=== PATIENT | male | born 1950 | race Caucasian/White ===

== ENCOUNTER → 2016-08-27 | Outpatient (CLI) | payer OTHER ==
[~2016-08-27] MED LIST: AMLO-114 PO; ASPI-435 PO; CIPR-255 PO; CYAN10005 PO; DIPH-437 PO; FLAX12003 PO; HYDR-5688 PO; HYZ/10015 PO; LEVO100T7 PO; MULT-506 PO; PSYL0.524 PO; SILD50TA PO; TADA10TA PO; TAMS0.4C59 PO
--- NOTE | 2016-09-02 10:15 | CODING QUERY MEDICAL NECESSITY ---
SUPPORTING DIAGNOSIS NEEDED Dr. Vance, A supporting diagnosis is required for the test/procedure performed on this patient in order for us to be reimbursed by the patient's insurance. Please provide a supporting diagnosis for the following test/procedure listed below next to the test name along with your signature. *If there is no additional diagnosis for this patient that would support the following test/procedure please document that below next to the test/procedure. Test(s)/Procedure(s) that require a supporting diagnosis: * [id number] PSA DIAGNOSIS: DATE OF SERVICE: 08/27/16 Provider Signature: Date: Thank you [facility] Information Management Once completed, please kindly fax back to [phone] For questions please call [phone]
== END | disposition home or self-care (01) ==
LOC: C.LABPVFM 13:46
PROVIDERS: ATTEND Urology
DX: F52.8 Other sexual dysfunction not due to a substance or known physiological condition (principal); N40.1 Benign prostatic hyperplasia with lower urinary tract symptoms

== ENCOUNTER → 2016-11-21 | Outpatient (CLI) | payer OTHER ==
[~2016-11-21] MED LIST changes: -SILD50TA PO; -TAMS0.4C59 PO
== END | disposition home or self-care (01) ==
LOC: C.LAB1850 11:15
PROVIDERS: ATTEND Physician Assistant Medical
DX: E03.9 Hypothyroidism, unspecified (principal)

== ENCOUNTER 2016-12-02 09:25 | Observation (INO) | payer OTHER ==
[2016-11-19 08:11] VITALS: BMI 38.0
--- NOTE | 2016-11-19 08:39 | PAT Medication Instructions ---
Service Date Nov 19, 2016. Current Home Medication List Amlodipine (Norvasc), 10 MG PO QAM Aspirin (Aspirin 81), 81 MG PO QAM Cyanocobalamin (Vitamin B-12), 1,000 MCG PO QAM Flaxseed (Linseed) (Flaxseed Oil), 1 CAP PO QAM Hctz/Losartan (Hyzaar 25MG/100MG), 1 TAB PO QAM Levothyroxine Sodium (Levothyroxine Sodium), 1 TAB PO QAM Multivitamin (Multivitamin), 1 TAB PO QAM Psyllium (Metamucil), 1 CAP PO QAM Tadalafil (Cialis), 10 MG PO QAM Medication Instructions For Your Scheduled Surgery - Check with surgeon/Dr. Harmon for instructions: Aspirin (Aspirin 81), 81 MG PO QAM - Hold the following medications starting 11/20/16: Flaxseed (Linseed) (Flaxseed Oil), 1 CAP PO QAM - Hold the following medications the morning of surgery: Psyllium (Metamucil), 1 CAP PO QAM Multivitamin (Multivitamin), 1 TAB PO QAM Hctz/Losartan (Hyzaar 25MG/100MG), 1 TAB PO QAM Cyanocobalamin (Vitamin B-12), 1,000 MCG PO QAM - Take the following medications the morning of surgery with a sip of water: Amlodipine (Norvasc), 10 MG PO QAM Levothyroxine Sodium (Levothyroxine Sodium), 1 TAB PO QAM - Take the following medications the night prior to surgery: Tadalafil (Cialis), 10 MG PO QPM If you have any questions please call us at [phone] or [phone] or [phone]
--- NOTE | 2016-11-19 09:15 | DIAGNOSTIC IMAGING REPORT ---
CHEST 2 VIEWS ROUTINE HISTORY: 66 years-old Male preadmission exam. COMPARISON: Chest radiographs 02/18/2011 TECHNIQUE: PA and lateral views of the chest FINDINGS: Cardiac silhouette is again upper limits of normal. Mediastinal contours are within normal limits. There is atherosclerosis of the aorta. There is no pneumothorax. There is chronic blunting of left costophrenic angle with associated linear subsegmental opacities suggesting atelectasis and/or scarring. No lobar airspace consolidations are seen. No large pleural effusion. Multilevel endplate spurring is seen throughout the spine. IMPRESSION: 1. No acute cardiopulmonary process. 2. Linear subsegmental opacities of the left lung base suggest atelectasis or scarring with chronic blunting of the left costophrenic angle. The above report was generated using voice recognition software. It may contain grammatical, syntax or spelling errors. Electronically signed by: Jose Li M.D. 11/19/2016 9:13 AM Dictated Date/Time: 11/19/2016 9:12 AM
[2016-11-19 09:34] LABS: BASO % 0.5 %; BASO ABS # 0.03 K/uL (0-0.2); COMPLETE YES; EOS % 2.4 %; HEMATOCRIT 49.6 % (42-52); IG% 0.2 %; LYMPH % 30.1 %; LYMPH ABS # 1.75 K/uL (1.2-3.4); MEAN CELL VOLUME 90.7 fL (80-100); MEAN CORPUSCULAR HEMOGLOBIN 32.7 pg (25-34); MEAN CORPUSCULAR HGB CONC 36.1 g/dl (32-36); MEAN PLATELET VOLUME 10.3 fL (7.4-10.4); NEUT % 56.8 %; PLATELET COUNT 204 K/uL (130-400); RED BLOOD COUNT 5.47 M/uL (4.7-6.1); WHITE BLOOD COUNT 5.82 K/uL (4.8-10.8)
[2016-11-19 09:43] LABS: URINE APPEARANCE CLEAR (CLEAR); URINE BILIRUBIN NEG (NEG); URINE COLOR YELLOW; URINE EPITHELIAL CELL AUTO 0-5 /lpf (0-5); URINE NITRITE NEG (NEG); URINE SPECIFIC GRAVITY 1.017 (1.000-1.030); UROBILINOGEN NEG (NEG)
[2016-11-19 09:46] LABS: MANUAL MICROSCOPIC REQUIRED? NO; REVIEW REQ? NO
[2016-11-19 10:15] LABS: BUN/CREATININE RATIO 14.7 (10-20); CALCIUM 9.5 mg/dl (8.5-10.1); CREATININE 1.1 mg/dl (0.60-1.40); POTASSIUM 3.4 mmol/L (3.5-5.1)
[~2016-12-02] VITALS: Ht 180.3 cm; Wt 125.5 kg
[2016-12-02] VITALS (10 sets, daily range): BP systolic 99–179; BP diastolic 46–85; PULSE 42–61; TEMP 36.4–37; O2SAT 91–95; Ht 180.3 cm; Wt 125.5 kg
[~2016-12-02 09:25] MED LIST changes: -CIPR-255 PO; +CIPROFLOXACIN / D5W 400 MG IV SCH; -DIPH-437 PO; -HYDR-5688 PO; +LACTATED RINGER'S 1000ML 1,000 ML IV SCH
[2016-12-02] MEDS ORDERED: DIPH-437 PO (09:51)
[2016-12-02] MEDS ORDERED: FENTANYL CITRATE INJ 50 MCG/1 ML 2 ML VIAL ONE ×2 (10:39→12:58)
[2016-12-02] MEDS ORDERED: MIDAZOLAM HCL 1 MG/ML 2ML VIAL ONE (10:39)
[2016-12-02] MEDS ORDERED: LIDOCAINE HCL 2% 2 ML VIAL (20MG/ML) ONE (10:41)
[2016-12-02] MEDS ORDERED: ONDANSETRON INJ 2 MG/ML 2 ML VIAL ONE (10:41)
[2016-12-02] MEDS ORDERED: DEXAMETHASONE SOD INJ 4 MG/ML VIAL ONE (10:41)
[2016-12-02] MEDS ORDERED: ONDANSETRON INJ 2 MG/ML 2 ML VIAL IV PRN ×2 (11:00→15:00)
[2016-12-02] MEDS ORDERED: ATROPINE SULFATE 0.1 MG/ML 5ML SYR IV PRN (11:00)
[2016-12-02] MEDS ORDERED: EpHEDrine SULFATE INJ 50 MG/ML AMP IV PRN (11:00)
[2016-12-02] MEDS ORDERED: PHENYLEPHRINE 100MCG/ML 5ML SYR IV PRN (11:00)
[2016-12-02] MEDS ORDERED: HYDROmorphone INJ 2 MG/ML SYR/VIAL IV PRN (11:00)
[2016-12-02] MEDS ORDERED: SUCCINYLCHOLINE CHLORIDE 20 MG/ML 10 ML VIAL IV ONE (11:21)
[2016-12-02] MEDS ORDERED: ROCURONIUM BROMIDE 10 MG/ML 5 ML VIAL IV ONE (11:21)
--- NOTE | 2016-12-02 11:47 | History & Physical Bridge Note ---
H&P Re-Evaluation Bridge Note: I have examined the patient, reviewed the History & Physical and in the interval since the performance of the History & Physical I have noted the following changes of clinical significance: No changes noted
[2016-12-02] MEDS ORDERED: GLYCOPYRROLATE INJ 0.2 MG/ML VIAL ONE (12:18)
[2016-12-02] MEDS ORDERED: PROPOFOL IV EMULSION 10 MG/ML 20 ML VIAL IV ONE ×2 (12:18→12:59)
[2016-12-02] MEDS ORDERED: CISATRACURIUM BESYLATE IV SOLN 2 MG/ML 10 ML VIAL ONE (12:18)
[2016-12-02] MEDS ORDERED: NEOSTIGMINE METHYLSULFATE 5 MG/5 ML SYR ONE (12:18)
[2016-12-02] MEDS ORDERED: PHENYLEPHRINE 100MCG/ML 5ML SYR ONE (12:28)
[2016-12-02] MEDS ORDERED: EpHEDrine SULFATE 50MG/5ML SYR ONE (12:28)
[2016-12-02] MEDS ORDERED: SODIUM CHLORIDE 0.9% 1000ML 1,000 ML IV SCH (13:25)
[2016-12-02] MEDS ORDERED: HYDR-5688 PO (13:27)
[2016-12-02] MEDS ORDERED: CIPR-255 PO (13:27)
[2016-12-02] MEDS ORDERED: ACETAMINOPHEN 325 MG TAB PO PRN ×2 (13:30→15:00)
[2016-12-02] MEDS ORDERED: HYDROCODONE/ACETAMOPHEN 5/325MG TAB PO PRN ×3 (13:30→15:00)
--- NOTE | 2016-12-02 13:32 | Discharge Instructions ---
Discharge Instructions Date of Service Dec 02, 2016. Admission Reason for Admission: Benign Prostatic Hyperplasia, Bladder Tumor Discharge Discharge Diagnosis / Problem: BPH; bladder tumor Discharge Goals Goal(s): Decrease discomfort, Improve function, Increase independence, Improve disease control, Prevent Disease Progression Activity Recommendations Activity Limitations: per Instructions/Follow-up section Lifting Limitations: no more than 25 pounds Exercise/Sports Limitations: gradually increase as tolerated May Resume Sexual Activity: when tolerated Shower/Bathe: no limitations Driving or Machine Use: resume 1 day after discharge . Instructions / Follow-Up Instructions / Follow-Up Please come to Dr. Vanec's office on November 03, at 9AM to have your catheter removed. Discharge Diet Recommended Diet: Regular Diet Procedures Procedures Performed: Transuretral resection of the bladder tumor, Transuretheral Resection of Prostate Pending Studies Studies pending at discharge: no Medical Emergencies . Who to Call and When: Medical Emergencies: If at any time you feel your situation is an emergency, please call 911 immediately. . Non-Emergent Contact Non-Emergency issues call your: Urologist Call Non-Emergent contact if: you have a fever, temperature is above 101.5, your pain is not controlled, your pain is worsening . . "Provider Documentation" section prepared by Ramon Duckworth. . VTE Core Measure Inpt VTE Proph given/why not?: Treatment not indicated [place] Drug Monitoring Program Search Results: patient reviewed within database, no issues identified
--- NOTE | 2016-12-02 13:41 | [facility] Operative Report ---
Operative Report Operative Date Dec 02, 2016. Pre-Operative Diagnosis Malignant neoplasm of bladder and benign prostatic hyperplasia with post-void dribbling Post-Operative Diagnosis same as preop Procedure(s) Performed Transuretral resection of the bladder tumor, Transuretheral Resection of Prostate Surgeon Dr. Vance Cuff Setter Overlock Surgeon(s) none Estimated Blood Loss 25 cc Findings Massively enlarged prostate with trilobar hypertrophy; papillary appearing bladder tumor on the left aspect of the trigone overlying the left ureteral orifice and abutting the posterior aspect of the intravesical median lobe of the prostate Specimens A: Bladder Tumor B: Prostate Chips Drains 22 Moroccan Faulkner catheter Anesthesia Gen. Complication(s) None Disposition Recovery Room / PACU (stable) Indications Bladder cancer; BPH significant voiding dysfunction Description of Procedure Patient was identified in the preoperative holding area, appropriate informed consents reviewed and completed, and the patient was transported to the operating suite. Upon arrival he received appropriate preoperative antibiotics in the form of ciprofloxacin. Adequate general anesthesia was achieved, and the patient was placed in dorsal lithotomy position where he was sterilely prepped and draped in standard fashion. I began the case by passing a 27 Moroccan resectoscope. Of note his meatus was quite tight and I had to perform a meatal dilation utilizing male urethral sounds prior to passage of the scope. Inspection of the urethra revealed no evidence of stricture disease. Upon entry into the prostate, begin readily apparent that this was a massive prostate. He has significant lateral lobe hypertrophy as well as a large intravesical median lobe and very high bladder neck. I struggled to get the scope over the edge of the prostate to be able to inspect the bladder. Once I was able to enter the bladder I inspected with both a 30 and 70 lens. I mobility was quite limited secondary to the prostate, however I was able to identify papillary appearing bladder tumor arising from the left lateral aspect of the trigone. I was unable to visualize the left ureteral orifice as it appeared that the tumor was growing over this. The right ureteral orifice, was easily identified and free of tumor. The tumor extent appeared to involve the left aspect of the trigone but extent also on to the posterior aspect of the prostate in the left lateral sidewall. The visible portion of this tumor was at least 3-4 cm in diameter. After my full inspection I return to the 30 lens and exchanged the visual melting operator for a resecting loop. I resected all of the visible tumor and irrigated all the chips out of the bladder. As I resected a continuously search for the UO which was not readily apparent. In the presumed area of the UO, I used only cutting current. I reinspected with a 30 and 70 lens after this resection. Unfortunately there is still small amount of tumor on the posterior aspect of the intravesical median lobe. At that time I felt mild hope to resect all this will be to resect a portion of the median lobe in addition to the tumor. The patient I have discussed this possibility prior to surgery and I had an instructed him that while my first intention is to resect the tumor cells as a solitary surgery and return at a later time for a TURP, I had assured him that if a TURP was necessary we would perform a full TURP to attempt to improve his voiding pattern. On inspection, I would estimate that his prostate was close to 100 g in size. I began my resection in the area with the tumor cells were present. I resected these areas and then passed this off the table as a specimen with the previously sent bladder tumor. After inspecting and confirming that all tumor was resected I proceeded to resect the remaining aspects of the median lobe. To accomplish this, I used a combination of loop resection and button electrode vaporization. Following resection of the intravesical median lobe and flattening of the bladder neck, I turned my attention to the lateral lobes. The lateral lobes are resected anterior to posterior beginning on the left followed by the right. I then completed my resection by trimming the apical tissue from adjacent to the verumontanum. I ensured excellent hemostasis and I evacuated all prostate chips from the bladder. The prostate chips were sent as a specimen labeled prostate chips. Concluded the case I placed a 22 Moroccan Faulkner catheter and inflated the balloon with 30 mL of water. She was subsequently reversed from anesthesia and taken to the PACU in stable condition. I attest to the content of the Intraoperative Record and any orders documented therein. Any exceptions are noted below.
--- NOTE | 2016-12-02 14:15 | Anesthesiology Progress Note ---
Anesthesia Post Op Note Date & Time Dec 02, 2016 at 14:15 Vital Signs Pain Intensity: 0 Vital Signs Past 12 Hours Date Time Temp Pulse Resp B/P (MAP) Pulse Ox O2 Delivery O2 Flow Rate FiO2 12/02/16 13:37 36.2 54 16 126/66 95 Oxymask 10 12/02/16 09:53 37 58 18 179/85 (116) 94 Room Air Notes Mental Status: alert / awake / arousable, participated in evaluation Pt Amnestic to Procedure: Yes Nausea / Vomiting: adequately controlled Pain: adequately controlled Airway Patency, RR, SpO2: stable & adequate BP & HR: stable & adequate Hydration State: stable & adequate Anesthetic Complications: no major complications apparent
[2016-12-02] MEDS ORDERED: IV FLUIDS COMPLETED PRN (15:15)
[2016-12-02] MEDS: LACTATED RINGER'S 1000ML 1,000 ML IV SCH ×2 (18:42→21:50)
[2016-12-02] MEDS ORDERED: CEFAZOLIN IV 1,000 MG in DEXTROSE 5% 50ML 50 ML IV SCH (20:00)
[2016-12-02] MEDS: DOCUSATE SODIUM 100 MG CAP PO SCH (20:21)
[2016-12-02] MEDS: CEFAZOLIN IV 2,000 MG in DEXTROSE 5% 50ML 50 ML IV SCH (20:58)
[2016-12-03 03:39] VITALS: BP 135/74; PULSE 61; TEMP 37.1; O2SAT 94
[2016-12-03] MEDS: CEFAZOLIN IV 2,000 MG in DEXTROSE 5% 50ML 50 ML IV SCH (03:43)
[2016-12-03] MEDS: LACTATED RINGER'S 1000ML 1,000 ML IV SCH (03:44)
[2016-12-03] MEDS ORDERED: LEVOTHYROXINE 100 MCG TAB PO SCH (06:00)
[2016-12-03 06:42] LABS: BASO % 0.1 %; BASO ABS # 0.01 K/uL (0-0.2); COMPLETE YES; EOS % 0.1 %; IG% 0.4 %; LYMPH % 11.1 %; LYMPH ABS # 1.85 K/uL (1.2-3.4); MEAN CELL VOLUME 93.1 fL (80-100); MEAN CORPUSCULAR HEMOGLOBIN 32.7 pg (25-34); MEAN CORPUSCULAR HGB CONC 35.1 g/dl (32-36); MEAN PLATELET VOLUME 10.4 fL (7.4-10.4); MONO % 7.4 %; NEUT % 80.9 %; PLATELET COUNT 211 K/uL (130-400); RED BLOOD COUNT 5.05 M/uL (4.7-6.1); WHITE BLOOD COUNT 16.73 K/uL (4.8-10.8)
[2016-12-03 07:03] LABS: CALCIUM 9.2 mg/dl (8.5-10.1); CREATININE 1.2 mg/dl (0.60-1.40); POTASSIUM 3.9 mmol/L (3.5-5.1)
[2016-12-03 07:26] VITALS: BP 134/75; PULSE 58; TEMP 36.8; O2SAT 96
[2016-12-03] MEDS: DOCUSATE SODIUM 100 MG CAP PO SCH (08:26)
--- NOTE | 2016-12-03 08:27 | Progress Note ---
Subjective Date of Service: Dec 03, 2016. Subjective Pt evaluation today including: conversation w/ patient, physical exam, chart review, lab review Voiding: amin catheter in place No issues overnight - tolerating a diet - ambulatory - labs stable - urine still bloody, but no clot obstruction overnight Review of Systems Constitutional: No see HPI, No fever, No chills, No sweats, No weight loss, No weakness, No fatigue, No problem reported Eyes: No see HPI, No worsening of vision, No eye pain, No redness, No discharge , No diplopia, No problem reported ENT: No see HPI, No hearing loss, No unusual epistaxis, No nasal symptoms, No sore throat, No tinnitus, No dental problems, No trouble swallowing, No problem reported Respiratory: No see HPI, No cough, No sputum, No wheezing, No shortness of breath, No dyspnea on exertion, No dyspnea at rest, No hemoptysis, No problem reported Cardiac: No see HPI, No chest pain, No orthopnea, No PND, No edema, No claudication, No palpitations, No problem reported Breast: No see HPI, No breast lump, No change in shape, No nipple discharge, No breast pain, No problem reported Abdomen: No see HPI, No pain, No nausea, No vomiting, No diarrhea, No constipation, No GI bleeding, No problem reported Male : + hematuria Objective Vital Signs Date Time Temp Pulse Resp B/P (MAP) Pulse Ox O2 Delivery O2 Flow Rate FiO2 12/03/16 07:26 36.8 58 18 134/75 (94) 96 Room Air 12/03/16 07:15 Room Air 12/03/16 03:39 37.1 61 18 135/74 (94) 94 Room Air 12/02/16 23:30 Room Air 12/02/16 22:55 36.5 61 18 133/75 (94) 94 Room Air 12/02/16 19:15 Room Air 12/02/16 18:51 36.7 58 18 131/79 (96) 92 Room Air 12/02/16 17:51 57 12/02/16 17:49 36.4 42 18 123/72 (89) 91 12/02/16 16:59 53 18 117/63 (81) 92 Room Air 12/02/16 16:10 36.4 53 18 103/60 (74) 91 Room Air 12/02/16 15:40 Room Air 12/02/16 15:40 36.4 57 18 111/67 92 Room Air 12/02/16 15:40 Room Air 12/02/16 15:00 36.5 52 18 101/46 93 Room Air 12/02/16 14:28 36.5 55 18 99/51 95 Room Air 12/02/16 14:22 58 14 122/70 12/02/16 14:20 36.2 56 12 122/70 98 Room Air 12/02/16 14:18 58 14 12/02/16 14:18 57 14 96 12/02/16 14:16 143/84 12/02/16 14:13 57 12 87 12/02/16 14:13 65 12 12/02/16 14:12 56 10 100 12/02/16 14:12 57 10 12/02/16 14:11 128/69 12/02/16 14:07 56 15 12/02/16 14:07 59 15 98 12/02/16 14:06 128/74 12/02/16 14:02 60 15 138/75 91 12/02/16 14:02 61 15 12/02/16 13:57 60 16 97 12/02/16 13:57 60 16 12/02/16 13:56 143/80 12/02/16 13:52 60 15 12/02/16 13:52 60 15 96 12/02/16 13:51 138/80 12/02/16 13:47 62 18 95 12/02/16 13:47 62 18 12/02/16 13:46 129/75 12/02/16 13:42 61 15 12/02/16 13:42 62 15 94 12/02/16 13:41 110/68 12/02/16 13:38 126/66 12/02/16 13:37 61 16 93 12/02/16 13:37 36.2 54 16 126/66 95 Oxymask 10 12/02/16 13:37 61 16 12/02/16 09:53 37 58 18 179/85 (116) 94 Room Air Physical Exam General Appearance: WD/WN, no apparent distress Eyes: normal inspection ENT: hearing grossly normal Neck: no adenopathy Respiratory/Chest: no respiratory distress, no accessory muscle use Cardiovascular: regular rate, rhythm, no edema Abdomen: non tender, soft Extremities: non-tender Neurologic/Psychiatric: alert, normal mood/affect, oriented x 3 Skin: warm/dry Lymphatic: no adenopathy Laboratory Results Last 24 Hours Test 12/03/16 06:12 White Blood Count 16.73 K/uL Red Blood Count 5.05 M/uL Hemoglobin 16.5 g/dL Hematocrit 47.0 % Mean Corpuscular Volume 93.1 fL Mean Corpuscular Hemoglobin 32.7 pg Mean Corpuscular Hemoglobin Concent 35.1 g/dl Platelet Count 211 K/uL Mean Platelet Volume 10.4 fL Neutrophils (%) (Auto) 80.9 % Lymphocytes (%) (Auto) 11.1 % Monocytes (%) (Auto) 7.4 % Eosinophils (%) (Auto) 0.1 % Basophils (%) (Auto) 0.1 % Neutrophils # (Auto) 13.54 K/uL Lymphocytes # (Auto) 1.85 K/uL Monocytes # (Auto) 1.24 K/uL Eosinophils # (Auto) 0.02 K/uL Basophils # (Auto) 0.01 K/uL RDW Standard Deviation 44.9 fL RDW Coefficient of Variation 13.3 % Immature Granulocyte % (Auto) 0.4 % Immature Granulocyte # (Auto) 0.07 K/uL Sodium Level 138 mmol/L Potassium Level 3.9 mmol/L Chloride Level 104 mmol/L Carbon Dioxide Level 28 mmol/L Anion Gap 6.0 mmol/L Blood Urea Nitrogen 19 mg/dl Creatinine 1.20 mg/dl Est Creatinine Clear Calc Drug Dose 79.5 ml/min Estimated GFR () 71.6 Estimated GFR (Non- 61.8 BUN/Creatinine Ratio 16.0 Random Glucose 122 mg/dl Calcium Level 9.2 mg/dl Assessment and Plan POD#1 s/p TURBT and TURP - very large prostate - urine still bloody, but no clot obstruction overnight, no CBI needed - subjectively, he feels very well - no pain or discomfort aside from minor catheter irritation - plan for d/c home this AM - voiding trial tomorrow in my office
--- NOTE | 2016-12-03 08:29 | Anesthesiology Progress Note ---
Anesthesia Post Op Note Date & Time Dec 03, 2016 at 08:28 Vital Signs Pain Intensity: 0.0 Vital Signs Past 12 Hours Date Time Temp Pulse Resp B/P (MAP) Pulse Ox O2 Delivery O2 Flow Rate FiO2 12/03/16 07:26 36.8 58 18 134/75 (94) 96 Room Air 12/03/16 07:15 Room Air 12/03/16 03:39 37.1 61 18 135/74 (94) 94 Room Air 12/02/16 23:30 Room Air 12/02/16 22:55 36.5 61 18 133/75 (94) 94 Room Air Notes Mental Status: alert / awake / arousable, participated in evaluation Pt Amnestic to Procedure: Yes Nausea / Vomiting: adequately controlled Pain: adequately controlled Airway Patency, RR, SpO2: stable & adequate BP & HR: stable & adequate Hydration State: stable & adequate Anesthetic Complications: no major complications apparent
[2016-12-03 08:30] VITALS: PULSE 73
--- NOTE | 2016-12-03 08:31 | Discharge Summary ---
Discharge Summary Date of Service Dec 03, 2016. Discharge Summary Admission Date: Dec 02, 2016 at 14:58 Discharge Date: Dec 03, 2016 Discharge Disposition: Home Principal Diagnosis: Bladder tumor Secondary Diagnoses/Problems: BPH Procedures: TURBT; TURP Medication Reconciliation New Medications: Ciprofloxacin Hcl (Cipro) 500 Mg Tab 500 MG PO BID, #6 TAB Hydrocodone/Acetaminophen 5MG/325MG (Powell 5MG/325MG) Tab 2 TABLETS PO Q6H PRN for Pain, #25 TAB Continued Medications: Amlodipine (Norvasc) 10 Mg Tab 10 MG PO QAM, TAB Aspirin (Aspirin 81) 81 Mg Tab 81 MG PO QAM Cyanocobalamin (Vitamin B-12) 1,000 Mcg Tab 1000 MCG PO QAM, TAB Diphenhydramine-Acetaminophen (Tylenol Pm) 1 Tab Tab 1 TAB PO HS, TAB Flaxseed (Linseed) (Flaxseed Oil) 1 Cap Cap 1 CAP PO QAM Hctz/Losartan (Hyzaar 25MG/100MG) Tab 1 TAB PO QAM, TAB Levothyroxine Sodium (Levothyroxine Sodium) 100 Mcg Tab 1 TAB PO QAM for 90 Days, #90 TAB 3 Refills Multivitamin (Multivitamin) Tab 1 TAB PO QAM, TAB Psyllium (Metamucil) 0.52 Gm Cap 1 CAP PO QAM Tadalafil (Cialis) 10 Mg Tab 10 MG PO QPM, TAB Hospital Course Pt admitted for TURBT and TURP. He had a bladder tumor closely abutting the posterior aspect of a large intravesical median lobe. The tumor was covering the left UO. He underwent a resection of the tumor and the prostate. Post operatively, he was kept in house for observation, mostly due to the extremely large size of his prostate and the risk of bleeding. He did very well overnight. Catheter remained moderately bloody, but drained well - no clot obstruction. He subjectively felt extremely well and was discharged home in stable condition on the morning of POD#1. He will return to my office for a voiding trial tomorrow. Total time spent on discharge = This includes examination of the patient, discharge planning, medication reconciliation, and communication with other providers. Discharge Instructions Please see previously written d/c instructions
[2016-12-03] MEDS ORDERED: CYANOCOBALAMIN 500 MCG TAB (VIT B-12) PO SCH (09:00)
[2016-12-03] MEDS ORDERED: LOSARTAN/HCTZ 50-12.5 EA TAB PO SCH (09:00)
[2016-12-03] MEDS ORDERED: MULTIVITAMIN TAB PO SCH (09:00)
[2016-12-03] MEDS ORDERED: AMLODIPINE BESYLATE 5 MG TAB PO SCH (09:00)
[2016-12-03] MEDS ORDERED: PSYLLIUM 58.6% PWD PACK S\\F PO SCH (09:00)
[2016-12-03 09:53] VITALS: BP 134/75; PULSE 73; TEMP 36.8; O2SAT 96
== END 2016-12-03 11:28 | disposition home or self-care (01) ==
LOC: C.ACU 09:25 → C.MSW 14:58 → ENRESERV 15:10
PROVIDERS: ADMIT Urology; ATTEND Urology
DX: C67.0 Malignant neoplasm of trigone of bladder (principal); N40.1 Benign prostatic hyperplasia with lower urinary tract symptoms; N39.43 Post-void dribbling; C67.9 Malignant neoplasm of bladder, unspecified; E78.5 Hyperlipidemia, unspecified; K21.9 Gastro-esophageal reflux disease without esophagitis; I10 Essential (primary) hypertension; E03.9 Hypothyroidism, unspecified; Z83.3 Family history of diabetes mellitus; Z79.82 Long term (current) use of aspirin; Z79.899 Other long term (current) drug therapy

== ENCOUNTER → 2017-01-07 | Outpatient (CLI) | payer OTHER ==
[~2017-01-07] MED LIST changes: +CIPR-255 PO; -CIPROFLOXACIN / D5W 400 MG IV SCH; +DIPH-437 PO; +HYDR-5688 PO; -LACTATED RINGER'S 1000ML 1,000 ML IV SCH
== END | disposition home or self-care (01) ==
LOC: C.LABPVFM 16:10
PROVIDERS: ATTEND Physician Assistant Medical
DX: E03.9 Hypothyroidism, unspecified (principal)

== ENCOUNTER → 2017-02-26 | Outpatient (CLI) | payer OTHER ==
--- NOTE | 2017-02-26 13:03 | DIAGNOSTIC IMAGING REPORT ---
ULTRASOUND TESTES AND SCROTUM CLINICAL HISTORY: Right testicular swelling and pain. Epididymitis. COMPARISON STUDY: No priors. TECHNIQUE: Real-time, grayscale, and color Doppler sonography of the testes and scrotum is performed. Images are reviewed in the transverse and longitudinal planes. FINDINGS: The testes are normal in size and homogeneous in echotexture. Bilateral microlithiasis is observed. The right testis measures 4.7 x 3.1 x 3.2 cm and the left testis measures 3.9 x 2.0 x 2.5 cm. No intratesticular mass is seen. The right testis is hyperemic as compared to the left. Normal Doppler waveforms are identified in both testes. The epididymal heads are normal in size. The right epididymal head measures 1.3 cm in length and the left epididymal head measures 1.3 cm in length. The right epididymal head is hyperemic as compared to the left. There is a small right-sided hydrocele. No left-sided hydrocele or varicocele is seen. IMPRESSION: 1. Findings are consistent with right-sided epididymoorchitis. 2. There is a small right-sided hydrocele. 3. 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 No mass lesion is seen. Electronically signed by: Santosh Dutton M.D. 02/26/2017 1:02 PM Dictated Date/Time: 02/26/2017 1:00 PM
== END | disposition home or self-care (01) ==
LOC: C.ULTRBC 12:25
PROVIDERS: ATTEND Urology
DX: N45.1 Epididymitis (principal)

== ENCOUNTER → 2017-03-03 | Outpatient (CLI) | payer OTHER | END | disposition home or self-care (01) | LOC: C.PATHSPEC 17:04 | PROVIDERS: ATTEND Nurse Practitioner Adult Health | DX: N45.1 Epididymitis (principal); R31.29 Other microscopic hematuria ==

== ENCOUNTER 2023-11-12 09:02 | Inpatient (IN) ==
[2023-11-12] MEDS: fentaNYL citrate PF 100 MCG/2 ML VIAL ONE ×2 (09:15→10:27)
[2023-11-12] MEDS: ASPIRIN CHEW 324 MG ONE (09:15)
--- NOTE | 2023-11-12 09:19 | Emergency Department Note ---
Impression & Plan ST elevation MD (STEMI), Chest pain ED Provider Note NAME: CHARLIE SAENZ AGE: 73 SEX: M : 1950 ARRIVES VIA: Walk-In INFORMANT: Patient ED PROVIDER(S): Igor Neri DO CHIEF COMPLAINT:chest pain HPI: Patient is a 73-year-old male who presents to the ER with past medical history of hypertension for midsternal chest pain which has been coming and going since yesterday. Started about 2 hours prior to arrival. Associate with shortness of breath. Describes it as a pressure/something sitting on his chest. Does not believe it starts with exertion. Today started with rest. No other exacerbating or remitting factors. ADDITIONAL HISTORY OBTAINED: Per HPI Chronic Medical/Social Conditions Affecting Care: Per HPI PAST MEDICAL HISTORY:See Below PAST SURGICAL HISTORY:See Below FAMILY HISTORY:See Below SOCIAL HISTORY:See Below HOME MEDICATIONS:See Below ALLERGIES:See Below VITALS:See Below PHYSICAL EXAMINATION: GENERAL: Sitting up in bed, alert, ill-appearing, disheveled EYE EXAM: normal conjunctiva. PERRL and EOM's grossly intact. OROPHARYNX: mucous membranes are moist LUNGS: Clear to auscultation. Normal chest wall mechanics HEART: no murmurs, S1 normal and S2 normal ABDOMEN: abdomen soft, non-tender, normo-active bowel sounds, no masses, no rebound or guarding. UPPER EXTREMITIES: upper extremities are grossly normal. LOWER EXTREMITIES: No pitting edema. NEURO EXAM: Normal sensorium, cranial nerves II-XII grossly intact, normal speech, no gross weakness of arms, no gross weakness of legs. MEDICAL DECISION MAKING: Patient is a 73-year-old male who presents ER for chest pain. IV was established blood work was obtained. I was called to bedside by nursing staff following an EKG which was consistent with a STEMI. STEMI was called. Patient was given aspirin, fentanyl, heparin bolus and Brilinta. Dr. Abraham did present at bedside and agreed and took the patient emergently to the OR. Patient remained on the pads while in the ER. Consults/Care Managements Discussions: Per [facility] Triage Nursing notes reviewed. Limited review of prior medical records performed Vital Signs: reviewed and remarkable for bradycardic Differential diagnosis: Cardiac ischemia, aortic dissection, pulmonary embolism, pneumothorax, pneumonia, pericarditis, myocarditis, esophageal rupture, GERD, cholecystitis, pancreatitis, musculoskeletal, as well as other pathologies. ER treatment provided: See below Diagnostics interpreted by me include EKG and cardiac monitoring as listed below: -Cardiac Monitoring: An order was placed for continuous cardiac monitoring. The monitor shows a rate of 52 with sinus rhythm. -ECG: Sinus bradycardia rate of 51 ST segment elevations in the inferior leads with depressions in the high lateral leads and poor baseline in the septal leads EKG #2 Sinus bradycardia rate of 51 ST segment elevations in the inferior leads which are worsening Depressions in the high lateral leads as well as the septal leads consistent with a inferior posterior MD -Laboratory studies:Interpreted by me as stated above in MDM and shown below. 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 This includes bedside care, interpretation of diagnostic studies, and testing, discussion with consultants, patient, and family members, and other required patient management activities. This 35 minutes is in excess of all separately billable procedures. Past Med/Surg History Problem List (Updated 11/12/23 @ 14:47 by Igor Neri DO) Chest pain (Acute) ST elevation MD (STEMI) (Acute) STEMI (ST elevation myocardial infarction) Fatigue Irregular heart beats Patient request for diagnostic testing Routine health maintenance ED (erectile dysfunction) Low back pain radiating to right leg Lumbar disc herniation with radiculopathy Myofascial pain Lumbar pain with radiation down right leg Right hip pain Lumbar spondylosis Urinary retention Chronic knee pain after total replacement of both knee joints Encounter for pre-operative examination Plantar fascia syndrome Calcium nephrolithiasis 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 Abnormal EKG (Acute) Dyslipidemia Diet controlled - no meds H/O esophageal reflux (Acute) no problems currently Hyperglycemia (Acute) Hypertension Nocturia (Acute) Hx of bladder cancer S/P POLYPECTOMY (TESTED + FOR CANCER ON BIOPSY) - NO CHEMO OR XRT/BCG TREATMENT Medical History Lumbar disc herniation with radiculopathy Hx of esophageal reflux no current issues Dyslipidemia Hypertension Hx of bladder cancer s/p polpectomy, no chemo or XRT/ BCG tx Hx of renal calculi Osteoarthritis Hearing loss Hypothyroidism Obesity Surgical History S/P epidural steroid injection (07/2020) History of bilateral knee replacement x 2 History of transurethral resection of prostate x 2 + TURBT= 12/02/1610/2018- TURP /T History of blepharoplasty (02/13/12) History of colonoscopy Hx of tonsillectomy History of surgery (1959) arms/wrists/ orthopedic surgery 1960's Hx of appendectomy Family History Mother Family history of diabetes mellitus Other No family history of adverse response to anesthesia Social History Smoking Status: Former smoker Tobacco Type: Cigarettes Second Hand Exposure: Yes; Do You Dip or Chew Tobacco: No; Hx Alcohol Use: Yes Alcohol type: hard liquor Hx Substance Use: No Preferred Language: Trinidadian Communication Ability: Effective Visual Impairment: Limited Hearing Ability: Normal Farm Rancher Required: No Beliefs That Will Affect Care: None marital status: Current Living Situation: Spouse current occupational status: employed 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 How many Children do You have: 3 Feels Safe at Home: Yes Childhood Exposure to Second-Hand Smoke: Yes Diet: regular caffeine: Yes during the past year weight has: remained stable Dental Care, Regularly: Yes Physical Activity Frequency: Daily Seatbelt Use: always Sunscreen Use: Yes Do you think of yourself as: straight/heterosexual Sexual Activity: has been sexually active within the last 12 months Gender Identity: Male Assistive Devices: Denture - Lower and Glasses Allergies Allergies Allergy/AdvReac Type Severity Reaction Status Date / Time No Known Drug Allergies Allergy Mild Verified 11/05/23 09:06 Home Meds Home Medications Medication Instructions Recorded Confirmed aspirin 81 mg tablet,delayed 81 mg PO QAM 09/27/18 11/05/23 release (Miguel Low Dose Aspirin) flaxseed oil 1,000 mg capsule 1,000 mg PO QAM 09/27/18 11/05/23 multivitamin 1 tab PO QAM 09/27/18 11/05/23 psyllium husk 3.4 gram/5.4 gram 1 tsp PO QAM 09/27/18 11/05/23 oral powder (Metamucil) cranberry 1,000 mg capsule 1,000 mg PO UD 03/21/20 11/05/23 metoprolol succinate 50 mg 50 mg PO BID 09/22/23 11/05/23 tablet,extended release 24 hr vitamins A,C,X-jmhp-ijchet 4,296 1 cap PO BID 09/22/23 11/05/23 mcg-226 mg-90 mg capsule (PreserVision AREDS) Previous Rx's Medication Instructions Recorded losartan 100 mg tablet 100 mg PO QAM #90 tabs 03/24/23 sildenafil 100 mg tablet 100 mg PO DAILY PRN sexual 09/07/23 activity #10 tabs hydrochlorothiazide 25 mg tablet 25 mg PO QAM #90 tabs 09/15/23 potassium chloride 20 mEq 20 meq PO QAM #90 tabs 09/22/23 tablet,extended release amlodipine 10 mg tablet 10 mg PO DAILY #30 tabs 10/14/23 cholecalciferol (vitamin D3) 1,250 1,250 mcg PO Q7D 10 weeks #10 tabs 11/05/23 mcg (50,000 unit) tablet doxazosin 4 mg tablet 4 mg PO DAILY #90 tabs 11/05/23 levothyroxine 150 mcg tablet 150 mcg PO DAILY #90 tabs 11/05/23 Results & Data (ED) Vital Signs Vital Signs - 24 hr 11/12/23 09:05 11/12/23 09:05 11/12/23 09:11 Temperature 36.8 C Temperature Source Oral Pulse Rate 66 53 L Respiratory Rate 22 Respiratory Effort / Characteristics Non-Labored Spontaneous Respiratory Depth Normal Blood Pressure 163/76 H Blood Pressure Mean 105 Pulse Oximetry 94 Oxygen Delivery Method Room Air Room Air Sepsis Recent Fever Within 48 Hours No Sepsis New/Unexplained Change in Mental Status N/A Sepsis Action Taken by Nursing No Action Required Laboratory Data 11/12/23 Unknown 11/12/23 Unknown Lab Results 11/12/23 Range/Units 09:22 POC Hgb 16.3 (14.0-18.0) g/dl POC Hct 48 (42-52) % POC Sodium 139 (135-144) mmol/L POC Potassium 3.8 (3.3-5.0) mmol/L POC Chloride 100 L (101-112) mmol/L POC Total CO2 28 (24-31) mmol/L POC Anion Gap 16.0 (16-25) mmol/L POC BUN 21 H (7-18) mg/dl POC Creatinine 1.1 (0.6-1.3) mg/dl POC Glucose (other) 151 H (70-99) mg/dl POC Ioniz Calcium Leilani 1.08 L (1.12-1.32) mmol/l Administered Medications Miscellaneous (Icu Protocol For Hyperglycemia) 1 each N/A ACHS RASHAD Stop: 11/14/23 11:29 Last Admin: 11/12/23 12:54 Dose: Not Given Documented By: EUN Discontinued Medications Aspirin (Aspirin Chew 324 Mg) Confirm Administered Dose 324 mg .ROUTE .STK-MED ONE Stop: 11/12/23 09:15 Last Admin: 11/12/23 09:15 Dose: 324 mg Documented By: PAIGE Aspirin (Aspirin Chew 324 Mg) 324 mg PO NOW STA Stop: 11/12/23 09:17 Last Admin: 11/12/23 09:32 Dose: Not Given Documented By: FLORENTINO Fentanyl Citrate (Fentanyl Citrate Pf 100 Mcg/2 Ml Vial) Confirm Administered Dose 100 mcg .ROUTE .STK-MED ONE Stop: 11/12/23 09:15 Last Increment: 11/12/23 09:15 Dose: 50 mcg Documented By: PAIGE Fentanyl Citrate (Fentanyl Citrate Pf 100 Mcg/2 Ml Vial) Confirm Administered Dose 100 mcg .ROUTE .STK-MED ONE Stop: 11/12/23 09:16 Last Admin: 11/12/23 10:27 Dose: 25 mcg Documented By: IMER Fentanyl Citrate (Fentanyl Citrate Pf 100 Mcg/2 Ml Vial) 50 mcg IV NOW STA Stop: 11/12/23 09:17 Last Admin: 11/12/23 11:00 Dose: Not Given Documented By: EUN Heparin Sodium (Porcine) (Heparin (Porcine) 1000 Unit/Ml 10 Ml (Mine Engineering Superintendent Use Only)) Confirm Administered Dose 10,000 units .ROUTE .STK-MED ONE Stop: 11/12/23 09:16 Last Admin: 11/12/23 10:27 Dose: 8,000 units Documented By: IMER Heparin Sodium (Porcine) (Heparin Sod (Porcine) 1000 Unit/Ml) 5,000 units IV NOW STA Stop: 11/12/23 09:18 Last Admin: 11/12/23 09:25 Dose: 5,000 units Documented By: PAIGE Co-signed By: SARAVANAN Heparin Sodium/Sodium Chloride (Heparin In Nss Infusion 1000 Unit/500 Ml (2 U/Ml) Bag) Confirm Administered Dose 3,000 units IV .[facility] ONE Stop: 11/12/23 09:16 Last Admin: 11/12/23 10:27 Dose: 3,000 units Documented By: HERBER Heparin Sodium/Sodium Chloride (Heparin In Nss Infusion 1000 Unit/500 Ml (2 U/Ml) Bag) Confirm Administered Dose 4,000 units IV .[facility] ONE Stop: 11/12/23 10:35 Last Admin: 11/12/23 11:01 Dose: Not Given Documented By: EUN Iodixanol (Iodixanol (Visipaque) 320 Mg/Ml 100ml) Confirm Administered Dose 1 ml IV .[facility] ONE Stop: 11/12/23 10:12 Last Admin: 11/12/23 10:29 Dose: 100 ml Documented By: HERBER Ioversol (Optiray 350) Confirm Administered Dose 1 ml .ROUTE .[facility] ONE Stop: 11/12/23 09:17 Last Admin: 11/12/23 10:29 Dose: Not Given Documented By: HERBER Lidocaine HCl (Lidocaine 1% Local 20 Ml Vial) Confirm Administered Dose 40 ml .ROUTE .[facility] ONE Stop: 11/12/23 10:35 Last Admin: 11/12/23 11:01 Dose: Not Given Documented By: EUN Midazolam HCl (Midazolam Hcl 1 Mg/Ml 2ml Vial) Confirm Administered Dose 2 mg .ROUTE .[facility] ONE Stop: 11/12/23 09:16 Last Admin: 11/12/23 10:28 Dose: 1 mg Documented By: IMER Nicardipine HCl (Nicardipine Hcl Inj 2.5 Mg/Ml 10 Ml Amp) Confirm Administered Dose 25 mg .ROUTE .ST-MED ONE Stop: 11/12/23 09:16 Last Admin: 11/12/23 10:28 Dose: 25 mg Documented By: HERBER Nitroglycerin/Dextrose (Nitroglycerin/D5w 100mcg/Ml 20ml Syr) Confirm Administered Dose 2,000 mcg .ROUTE .[facility]-MED ONE Stop: 11/12/23 09:17 Last Admin: 11/12/23 10:29 Dose: 2,000 mcg Documented By: HERBER Ondansetron HCl (Ondansetron Inj 2 Mg/Ml 2 Ml Vial) Confirm Administered Dose 4 mg .ROUTE .STK-MED ONE Stop: 11/12/23 09:31 Last Admin: 11/12/23 10:29 Dose: 4 mg Documented By: IMER Ticagrelor (Ticagrelor 90 Mg Tab) 180 mg PO NOW STA Stop: 11/12/23 09:22 Last Admin: 11/12/23 09:23 Dose: 180 mg Documented By: PAIGE Ticagrelor (Ticagrelor 90 Mg Tab) Confirm Administered Dose 180 mg .ROUTE .STK- MED ONE Stop: 11/12/23 09:22 Last Admin: 11/12/23 09:32 Dose: Not Given Documented By: FLORENTINO Discharge Plan Visit Data Chief Complaint: Chest Pain Stated Complaint: CHEST PAIN ED Provider: Igor Neri Discharge Problem: ST elevation MD (STEMI), Chest pain Patient Disposition: Admitted As Inpatient Discharge Instructions Interventions: ED Discharge Assessment Last Done: 11/12/23 09:25 Discharge Problem: ST elevation MD (STEMI) Qualifiers: Involved coronary artery: unspecified coronary artery Qualified Code(s): I21.3 - ST elevation (STEMI) myocardial infarction of unspecified site Chest pain Qualifiers: Chest pain type: unspecified Qualified Code(s): R07.9 - Chest pain, unspecified
[2023-11-12] MEDS: TICAGRELOR 90 MG TAB PO STA (09:23)
[2023-11-12] MEDS: HEPARIN SOD (PORCINE) 1000 UNIT/ML IV STA (09:25)
[2023-11-12 09:26] LABS: Basophils # (auto) 0.04 K/uL (0.00-0.20); Basophils % (auto) 0.5 %; Eosinophils # (auto) 0.07 K/uL (0.00-0.50); Eosinophils % (auto) 0.8 %; Hematocrit (blood only) 46.9 % (42.0-52.0); Immature Granulocytes # (auto) 0.02 K/uL (0.01-0.20); Immature Granulocytes % (auto) 0.2 %; Lymphocytes # (auto) 1.27 K/uL (1.20-3.40); Lymphocytes % (auto) 14.5 %; Mean Corpuscular Hemoglobin 31.8 pg (25.0-34.0); Mean Corpuscular Hgb Conc 36.2 g/dL (32.0-36.0); Mean Corpuscular Volume 87.8 fL (80.0-100.0); Mean Platelet Volume 10.3 fL (9.4-12.4); Monocytes # (auto) 1.16 K/uL (0.11-0.59); Monocytes % (auto) 13.2 %; Neutrophils % (auto) 70.8 %; Platelet Count 170 K/uL (130-400); RDW Coefficient of Variation 12.2 % (11.5-14.5); RDW Standard Deviation 38.9 fL (36.4-46.3); Red Blood Count 5.34 M/uL (4.70-6.10); White Blood Count 8.76 K/ul (4.8-10.8)
--- NOTE | 2023-11-12 09:31 | Pre Anesthesia Assessment ---
Date of Service November 12, 2023 Pre Sedation Assessment Vital Signs Temp Pulse Resp BP Pulse Ox O2 Del Method 11/12/23 09:11 53 L 11/12/23 09:05 Room Air 11/12/23 09:05 98.2 F 66 22 163/76 H 94 Room Air Cardiovascular + bradycardic Respiratory + respiratory effort normal Pre-Sedation Airway Assessment Smoking Status: Former smoker Oral Cavity: + Dental Abnormalities Mallampati Class: III ASA: ASA4 Procedure Planning Contraindications for Sedation: none Notes The planned sedation has been discussed with the patient. Informed Consent was obtained. I have identified the patient, determined the appropriateness of sedation and have assessed the patient immediately prior to the procedure. All medicine(s) and interventions are by my order.
[2023-11-12] MEDS: TICAGRELOR 90 MG TAB ONE (09:32)
[2023-11-12] MEDS: ASPIRIN CHEW 324 MG PO STA (09:32)
--- NOTE | 2023-11-12 09:34 | Cardiology Consultation ---
Date of Consultation November 12, 2023 Assessment & Plan (1) STEMI (ST elevation myocardial infarction): Presentation consistent with inferior STEMI and recommend proceeding with emergent cardiac catheterization and likely primary PCI. No apparent contraindications to procedure. Discussed risks, benefits, alternatives of procedure with patient and they are willing to proceed. Given IV heparin and ticagrelor 180 mg in the ED. Further recommendations pending findings of coronary angiography. History of Present Illness History of Present Illness 73-year-old male here with acute chest pain and ECG concerning for acute NH. Patient seen emergently in the ED after heart alert activated on arrival. Cardiac history remarkable for palpitations, no prior history of CAD. Cardiac risk factors include hypertension, dyslipidemia, obesity. Other medical issues include GERD, osteoarthritis and prior history of prostate cancer. Chest pain began last night while at rest. Pain went away but continued to have nausea throughout the night keeping him from sleeping. This morning pain recurred and nausea worsened. Denies similar symptoms in the past. Chest pain at time of arrival 09/06. Hemodynamically stable, bradycardic. EKG showed sinus bradycardia with heart rate to the 50s and inferior ST elevations. Allergies Allergy/AdvReac Type Severity Reaction Status Date / Time No Known Drug Allergies Allergy Mild Verified 11/05/23 09:06 Home Medications Medication Instructions Recorded Confirmed Type aspirin 81 mg tablet,delayed 81 mg PO QAM 09/27/18 11/05/23 History release (Miguel Low Dose Aspirin) flaxseed oil 1,000 mg capsule 1,000 mg PO QAM 09/27/18 11/05/23 History multivitamin 1 tab PO QAM 09/27/18 11/05/23 History psyllium husk 3.4 gram/5.4 gram 1 tsp PO QAM 09/27/18 11/05/23 History oral powder (Metamucil) cranberry 1,000 mg capsule 1,000 mg PO UD 03/21/20 11/05/23 History losartan 100 mg tablet 100 mg PO QAM #90 tabs 03/24/23 11/05/23 Rx sildenafil 100 mg tablet 100 mg PO DAILY PRN sexual 09/07/23 11/05/23 Rx activity #10 tabs hydrochlorothiazide 25 mg tablet 25 mg PO QAM #90 tabs 09/15/23 11/05/23 Rx metoprolol succinate 50 mg 50 mg PO BID 09/22/23 11/05/23 History tablet,extended release 24 hr potassium chloride 20 mEq 20 meq PO QAM #90 tabs 09/22/23 11/05/23 Rx tablet,extended release vitamins A,C,B-simm-znvrco 4,296 1 cap PO BID 09/22/23 11/05/23 History mcg-226 mg-90 mg capsule (PreserVision AREDS) amlodipine 10 mg tablet 10 mg PO DAILY #30 tabs 10/14/23 11/05/23 Rx cholecalciferol (vitamin D3) 1,250 1,250 mcg PO Q7D 10 weeks #10 tabs 11/05/23 11/05/23 Rx mcg (50,000 unit) tablet doxazosin 4 mg tablet 4 mg PO DAILY #90 tabs 11/05/23 11/05/23 Rx levothyroxine 150 mcg tablet 150 mcg PO DAILY #90 tabs 11/05/23 11/05/23 Rx Patient History Medical History Lumbar disc herniation with radiculopathy Hx of esophageal reflux Dyslipidemia Hypertension Hx of bladder cancer Hx of renal calculi Osteoarthritis Hearing loss Hypothyroidism Obesity Surgical History S/P epidural steroid injection (07/2020) History of bilateral knee replacement History of transurethral resection of prostate History of blepharoplasty (02/13/12) History of colonoscopy Hx of tonsillectomy History of surgery (1959) Hx of appendectomy Family History Mother Family history of diabetes mellitus Other No family history of adverse response to anesthesia Social History (Updated 11/05/23 @ 09:08 by Carmen Singer LPN) Smoking Status: Former smoker Tobacco Type: Cigarettes Second Hand Exposure: Yes; Do You Dip or Chew Tobacco: No; Hx Alcohol Use: Yes Alcohol type: hard liquor Hx Substance Use: No Preferred Language: Ecuadorean Communication Ability: Effective Visual Impairment: Limited Hearing Ability: Normal Application Counselor Required: No Beliefs That Will Affect Care: None marital status: Current Living Situation: Spouse current occupational status: employed 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 How many Children do You have: 3 Feels Safe at Home: Yes Childhood Exposure to Second-Hand Smoke: Yes Diet: regular caffeine: Yes during the past year weight has: remained stable Dental Care, Regularly: Yes Physical Activity Frequency: Daily Seatbelt Use: always Sunscreen Use: Yes Do you think of yourself as: straight/heterosexual Sexual Activity: has been sexually active within the last 12 months Gender Identity: Male Assistive Devices: Denture - Lower and Glasses Review of Systems Review of Systems: Not completed in the setting of emergent situation Physical Exam Physical Exam: General: Uncomfortable HEENT: Sclerae anicteric Lungs: Clear to auscultation anteriorly Cardiac: Regular rate and rhythm, no murmurs. Vascular: 2+ radial Abdomen: Soft, nontender Extremities: Well perfused, no peripheral edema Neuro: Nonfocal Psych: Alert orient x3, normal affect and mood Results & Data Vital Signs (Past 12 Hours) Vital Signs Temp Pulse Resp BP Pulse Ox O2 Del Method 11/12/23 09:11 53 L 11/12/23 09:05 Room Air 11/12/23 09:05 98.2 F 66 22 163/76 H 94 Room Air PG Care Time/CCT Total # of Minutes Spent Total Time Spent with Patient: Total time spent is greater than 50% in coordination of care (as documented) at patient's floor/unit and/or counseling patient: Coding Level of Care Code 25718 INT INP/OBS CARE 2/55MIN Diagnoses STEMI (ST elevation myocardial infarction) I21.3
[2023-11-12 09:35] LABS: iSTAT Creatinine 1.1 mg/dl (0.6-1.3); iSTAT Hemoglobin 16.3 g/dl (14.0-18.0); iSTAT Ionized Calcium 1.08 mmol/l (1.12-1.32); iSTAT Potassium 3.8 mmol/L (3.3-5.0)
[2023-11-12 09:49] LABS: Albumin Globulin Ratio 1.7 (0.9-2); Albumin Level 4.6 gm/dl (3.4-5.0); BUN Creatinine Ratio 16.8 (10-20); Bilirubin,Total 1.1 mg/dl (0.2-1.0); Calcium 9.2 mg/dl (8.6-10.3); Creatinine Clr Calc Pharmacy 88.8 ml/min; Est GFR (African American) 83.9 ml/min; Est GFR (Non-African American) 72.4 ml/min; Globulin 2.7 gm/dl (2.5-4.0); Total Protein 7.3 gm/dl (6.0-8.3)
[2023-11-12 09:56] LABS: Troponin I High Sensitivity 150.5 pg/ml (0-20)
[2023-11-12 09:59] LABS: Potassium 3.5 mmol/L (3.5-5.1)
[2023-11-12] MEDS: HEPARIN (PORCINE) 1000 UNIT/ML 10 ML (CATH LAB USE ONLY) ONE (10:27)
[2023-11-12] MEDS: niCARdipine HCL INJ 2.5 MG/ML 10 ML AMP ONE (10:28)
[2023-11-12] MEDS: MIDAZOLAM HCL 1 MG/ML 2ML VIAL ONE (10:28)
[2023-11-12] MEDS: NITROGLYCERIN/D5W 100MCG/ML 20ML SYR ONE (10:29)
[2023-11-12] MEDS: ONDANSETRON INJ 2 MG/ML 2 ML VIAL ONE (10:29)
[2023-11-12] MEDS: IODIXANOL (VISIPAQUE) 320 MG/ML 100ML IV ONE (10:29)
[2023-11-12] MEDS: OPTIRAY 350 ONE (10:29)
--- NOTE | 2023-11-12 10:36 | History & Physical Report ---
Date of Service November 12, 2023 Assessment & Plan (1) STEMI (ST elevation myocardial infarction): Plan: Presented with intermittent chest pain over prior 24 hours - EKG with inferior ST elevations - s/p emergent cath 11/11: 1x REGINE to 100% RCA occlusion. Remaining 95% mid-LAD pending staged PCI. Cardiology following. Continue DAPT, ARB, Statin. Heparin gtt not recommended at this time. - Chest pain free on reassessment - BMP daily troponin trended to peak Echo pending Bradycardia Patient with bradycardia as low as the 50s, improved post cath. No prior history of bradycardia. Denies syncope/presyncope At risk of ramin dysfunction due to RCA dz Atropine on-call, admitted to ICU for further monitoring. Has not been syncopal, has remained normotensive (2) Lumbar disc herniation with radiculopathy: Plan: - No acute change in sx. Endorses 'throbbing' in his feet intermittently but no weakness or neuropathy. (3) Hx of bladder cancer: Plan: History of transitional cell carcinoma s/p resection 2016, has had 3 papillary tumors fulgurated in 2021 and 1 fulgurated in 2022 Bladder scan every shift (4) Dyslipidemia: Plan: Statin as noted (5) Hypertension: Plan: Beta-claudy, ARB as noted (6) Hypothyroidism: Plan: Continue Synthroid Plan Diet: Heart healthy, n.p.o. at midnight CODE: Full Dispo: ICU History of Present Illness Primary Care Provider: Brittni De Luna MD Sarthak is a 73-year-old male with a past medical history of hypertension, hypothyroidism, urinary retention who presents to the ER with 2 hours of heaviness/pressure in his chest. Patient was taken emergently to cardiac User Interface Developer. Per ER sign out intermittent pain onset at rest x1 day. Sarthak is seen at the bedside after transfer to the ICU postcatheterization. Per sign-out 1 stent to RCA 100% occluded. Coming back for planned PCI of LAD.. Bradycardic in the 50s, ST resolved. BP normal Held reports that he has not had any issues with chest pain in the preceding weeks or months up until yesterday evening. He reports he was walking when he developed discomfort in his mid upper abdomen/lower chest which felt more like gas and needing to burp, but without the ability to do so. Drink some Pepsi and think this got a little bit better, and went to bed but had a very poor night sleep and notes that he was much sweatier than normal. This morning when he was walking he had a feeling of again strong gas/indigestion with sweating but which radiated into his chest and presented to the ER for associated chest pressure. This has resolved postcatheterization. Heart rate has been low in the ER, he reports he has no history of bradycardia. Has a history of hypertension on hydrochlorothiazide/metoprolol/losartan Denies history of diabetes Denies prior heart attacks/NM Denies history of tobacco use. Denies alcohol use Medical History: Reviewed Medications: Reviewed Surgical History: Reviewed Family history: Reviewed Allergies: Reviewed Social History: NO tobacco/etoh Code Status: Full Allergies Allergy/AdvReac Type Severity Reaction Status Date / Time No Known Drug Allergies Allergy Mild Verified 11/05/23 09:06 Home Medications Medication Instructions Recorded Confirmed Type aspirin 81 mg tablet,delayed 81 mg PO QAM 09/27/18 11/05/23 History release (Miguel Low Dose Aspirin) flaxseed oil 1,000 mg capsule 1,000 mg PO QAM 09/27/18 11/05/23 History multivitamin 1 tab PO QAM 09/27/18 11/05/23 History psyllium husk 3.4 gram/5.4 gram 1 tsp PO QAM 09/27/18 11/05/23 History oral powder (Metamucil) cranberry 1,000 mg capsule 1,000 mg PO UD 03/21/20 11/05/23 History losartan 100 mg tablet 100 mg PO QAM #90 tabs 03/24/23 11/05/23 Rx sildenafil 100 mg tablet 100 mg PO DAILY PRN sexual 09/07/23 11/05/23 Rx activity #10 tabs hydrochlorothiazide 25 mg tablet 25 mg PO QAM #90 tabs 09/15/23 11/05/23 Rx metoprolol succinate 50 mg 50 mg PO BID 09/22/23 11/05/23 History tablet,extended release 24 hr potassium chloride 20 mEq 20 meq PO QAM #90 tabs 09/22/23 11/05/23 Rx tablet,extended release vitamins A,C,T-kejb-mbpsrk 4,296 1 cap PO BID 09/22/23 11/05/23 History mcg-226 mg-90 mg capsule (PreserVision AREDS) amlodipine 10 mg tablet 10 mg PO DAILY #30 tabs 10/14/23 11/05/23 Rx cholecalciferol (vitamin D3) 1,250 1,250 mcg PO Q7D 10 weeks #10 tabs 11/05/23 11/05/23 Rx mcg (50,000 unit) tablet doxazosin 4 mg tablet 4 mg PO DAILY #90 tabs 11/05/23 11/05/23 Rx levothyroxine 150 mcg tablet 150 mcg PO DAILY #90 tabs 11/05/23 11/05/23 Rx Past Med/Surg History Problem List (Updated 11/12/23 @ 14:47 by Igor Neri DO) Chest pain (Acute) ST elevation NM (STEMI) (Acute) STEMI (ST elevation myocardial infarction) Fatigue Irregular heart beats Patient request for diagnostic testing Routine health maintenance ED (erectile dysfunction) Low back pain radiating to right leg Lumbar disc herniation with radiculopathy Myofascial pain Lumbar pain with radiation down right leg Right hip pain Lumbar spondylosis Urinary retention Chronic knee pain after total replacement of both knee joints Encounter for pre-operative examination Plantar fascia syndrome Calcium nephrolithiasis 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 Abnormal EKG (Acute) Dyslipidemia Diet controlled - no meds H/O esophageal reflux (Acute) no problems currently Hyperglycemia (Acute) Hypertension Nocturia (Acute) Hx of bladder cancer S/P POLYPECTOMY (TESTED + FOR CANCER ON BIOPSY) - NO CHEMO OR XRT/BCG TREATMENT Medical History Lumbar disc herniation with radiculopathy Hx of esophageal reflux no current issues Dyslipidemia Hypertension Hx of bladder cancer s/p polpectomy, no chemo or XRT/ BCG tx Hx of renal calculi Osteoarthritis Hearing loss Hypothyroidism Obesity Surgical History S/P epidural steroid injection (07/2020) History of bilateral knee replacement x 2 History of transurethral resection of prostate x 2 + TURBT= 12/02/1610/2018- TURP /T History of blepharoplasty (02/13/12) History of colonoscopy Hx of tonsillectomy History of surgery (1959) arms/wrists/ orthopedic surgery 1959' Hx of appendectomy Family History Mother Family history of diabetes mellitus Other No family history of adverse response to anesthesia Social History Smoking Status: Former smoker Tobacco Type: Cigarettes Second Hand Exposure: Yes; Do You Dip or Chew Tobacco: No; Hx Alcohol Use: Yes Alcohol type: hard liquor Hx Substance Use: No Preferred Language: Spanish Communication Ability: Effective Visual Impairment: Limited Hearing Ability: Normal Aircraft Structural Design Engineer Required: No Beliefs That Will Affect Care: None marital status: Current Living Situation: Spouse current occupational status: employed 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 NAD. Cooperative. HEENT: Atraumatic, normocephalic. Vision and hearing grossly intact Pulm: CTAB A&P. -wheezes, -rales, -rhonchi. Symmetrical chest rise. No increased work of breathing. No respiratory distress. Cardiac: RRR, -mrg. Radial pulses intact and symmetrical. Abdominal: Nontender, nondistended, soft. BS present. Extremities: Right TR band in place. Sensation intact in all 5 right fingertips without deficit. No underlying wrist hematoma. Cap refill less than 2 seconds in the right thumb. Results & Data Results & Data Vital Signs (Past 12 Hours) Vital Signs Temp Pulse Resp BP Pulse Ox O2 Del Method 11/12/23 09:11 53 L 11/12/23 09:05 Room Air 11/12/23 09:05 36.8 C 66 22 163/76 H 94 Room Air PG Care Time/CCT Total # of Minutes Spent Total Time Spent with Patient: Total time spent is greater than 50% in coordination of care (as documented) at patient's floor/unit and/or counseling patient: Coding Level of Care Code 07346 INT INP/OBS CARE MIN Diagnoses STEMI (ST elevation myocardial infarction) I21.3 Lumbar disc herniation with radiculopathy M51.16 Hx of bladder cancer Z85.51 Dyslipidemia E78.5 Hypertension I10 Acquired hypothyroidism E03.9 Hypothyroidism type: acquired (6) Hypothyroidism Hypothyroidism type: acquired Qualified Code(s): E03.9 - Hypothyroidism, unspecified
--- NOTE | 2023-11-12 10:42 | Post Anesthesia Assessment ---
Date of Service November 12, 2023 Post Sedation Assessment Vital Signs Temp Pulse Resp BP Pulse Ox O2 Del Method 11/12/23 09:11 53 L 11/12/23 09:05 Room Air 11/12/23 09:05 98.2 F 66 22 163/76 H 94 Room Air Recovery Score Activity: Moves 4 extremities Respiration: Deep Breath/Cough Circulation: +/-20% PreAnes Value Consciousness: Fully Awake Oxygen Saturation: O2 needed for >90% Discharge Sedation Level of Care: Fast Track Phase II Post Sedation Plan On clinical assessment, the patient appears to have tolerated the sedation without complications. Patient is recovering as anticipated. Patient will continue to be monitored by nursing and may be discharged when sedation discharge criteria are met per below protocol. Upon Completions of procedure up to 15 minutes continue every 5 minute vital signs and the P.A.R. score; then discharge to a Phase I or Fast Track to Phase II per the following guidelines: * Discharge Patient to appropriate Phase II area if PAR is 8 or greater or return to pre- procedure baseline. The post - procedure orders will be as directed. * If PAR score is less than 8 or not return to pre-procedure baseline then patient will follow Phase I monitoring till PAR is reached for Phase II. The Phase I may be done in procedure room or may call to secure a Phase I area. * If naloxone or flumazenil are used for reversal, hold in Phase I for continued monitoring from when last reversal dose was given for a minimum of 60 minutes or longer pending the nurse and/or physician discretion of patient condition before discharge to Phase II. Please call the Sedation Physician to re-evaluate and complete post-note for discharge to Phase II area. Do NOT discharge from procedure sedation or Phase 1 until post- sedation evaluation note is complete by procedure /sedation MD Sedation Discharge Instructions to be given to the patient at discharge to home.
[2023-11-12] MEDS ORDERED: ONDANSETRON INJ 2 MG/ML 2 ML VIAL IV PRN (10:44)
[2023-11-12] MEDS ORDERED: ATROPINE SULFATE 0.1 MG/ML 10ML SYR IV PRN (10:44)
--- NOTE | 2023-11-12 10:58 | Post Operative Brief Note ---
Cardiology Brief Post Op Date of Surgery November 12, 2023 Pre & Post Diagnosis STEMI Procedure PCI with single REGINE to distal RCA Wheel Presser Familia Abraham MD Core Rescuer Елена Estimated Blood Loss 20 Findings See Below 100% acute distal RCA occlusion 95% mid LAD 40-50% mid circumflex 3.0 x 18 mm [place] REGINE to distal RCA Plan on staged PCI of mid LAD at some point during hospitalization. Anesthesia Type RN Sedation Complications none Disposition Disposition: Surgical ICU Overlapping Procedure I was present for: the critical portions of procedure.
[2023-11-12] MEDS: fentaNYL citrate PF 100 MCG/2 ML VIAL IV STA (11:00)
[2023-11-12] MEDS: LIDOCAINE 1% LOCAL 20 ML VIAL ONE (11:01)
--- NOTE | 2023-11-12 11:54 | Cardiac Catheterization ---
[facility] Data: Urban Renewal Manager Cardiac Status Clinical evaluation leading to the procedure CAD Presenation: STEMI Anginal Classification: CCS IV Diagnostic Physicians Name: Familia Abraham MD Closure Device Recommendations: PCI without planned CABG Cardiac Cath Procedure Full Procedure Date November 12, 2023 Pre-Procedure Diagnosis Pre-Procedure Diagnosis: STEMI AUC Score AUC Score: 9 Post-Procedure Diagnosis Post-Procedure Diagnosis: Severe CAD, Successful PCI and Elevated Intracardiac Pressures Procedure(s) Performed Procedure(s) Performed: Coronary Angiography, Left Heart Cath, Drug Eluting Stent and Ultrasound Guided Vascular Access Neurology Stroke Physician Familia Abraham MD Federal Air Marshal(s) Елена Dorsey Estimated Blood Loss Estimated Blood Loss: 25 Medication(s) Medication(s): Fentanyl, Heparin, Lidocaine 1%, Nicardipine, Nitroglycerin and Versed Medication(s): Ticagrelor Summary of Findings Indication: STEMI/Heart Alert Access: 6 Fr slender right ulnar artery under ultrasound guidance Catheters: [place], JR4 guide, pigtail Findings: LM -Short, normal caliber, no significant disease LAD -medium caliber, 95% focal mid segment stenosis after takeoff of second diagonal. Small distal LAD without significant disease and extends to apex. D2 without significant disease. Circumflex -medium caliber, 50-60% mid segment stenosis. Medium OM 2 without significant disease. Small left PLB without disease. RCA -dominant, large caliber, 30 to 40% mid segment disease, 100% distal acute occlusion LVEDP -23 -- PCI -- Antithrombotic therapy: Heparin, ticagrelor Procedure: RCA cannulated with JR4 guide Television Reporter 50 wire passed across lesion into distal vessel Distal RCA lesion predilated with 2.5 compliant balloon Dilated lesion stented with 3.0 x 18 mm [place]ilo drug-eluting Stent post-dilated with 3.5 noncompliant balloon IC vasodilators administered for spasm Post procedure PANKAJ 3 flow, stent well expanded with minimal residual stenosis and no apparent cardiac complications. Arterial Closure: TR band Summary: 1. Inferior STEMI/acute 100% distal RCA occlusion 2. Severe non-culprit coronary artery disease -95% mid LAD 50 to 60% mid circumflex 3. Elevated intracardiac filling pressure 4. Successful PCI of distal RCA with single drug-eluting stent (3.0 x 18 mm Danilo; postdilated with 3.5 NC). Recommendations: Admit to ICU for continued monitoring Loaded with ticagrelor 180 mg in ED Continue dual-antiplatelet therapy for at least 1 year. Trend troponins until peak, Check Echo High-dose statin Consult cardiac Rehab Plan on staged PCI of LAD later this hospitalization. Hemodynamics Rest Ao:: 149/96/126 Final Ao: 131/68/94 LV: 132/23 Recommendations Recommendations: PCI without planned CABG Radiation Exposure (mGy) 3370 Contrast (mls) 100 Anesthesia Moderate 9445-8760 Procedural Complication(s) None Disposition ICU I attest to the content of the Intraoperative Record and any orders documented therein. Any exceptions are noted below. [facility] Card Cath Procedure Codes Cardiac Catheterization Procedure 1: Cardiovascular Cath Procedures: 55091 Coronaries and LHC (+/-LV) Therapeutic Services & Ancillary Procedure 1: Cardiovascular Tx and Anc Procedures: 62679 Ultrasonic Guidance Vascular Access Moderate Sedation Procedure 1: Sedation/Anesthesia: 21276 Mod Sedation by the same physician;Init15 Min Child Age 5 & Up Procedure 2: Sedation/Anesthesia: 25272 Mod Sedation by the same physician; Ea [id number] Minutes Stenting Procedure 1: Cardiovascular Stent Procedures: 32693 Perc transluminal revascularization of acute sub/total occl, aMI PG Care Time/CCT Total # of Minutes Spent Total Time Spent with Patient: Total time spent is greater than 50% in coordination of care (as documented) at patient's floor/unit and/or counseling patient:
--- NOTE | 2023-11-12 12:16 | Electrocardiogram Report ---
Test Reason : Blood Pressure : */* mmHG Vent. Rate : 52 BPM Atrial Rate : * BPM P-R Int : * ms QRS Dur : 98 ms QT Int : 434 ms P-R-T Axes : * -12 100 degrees QTcB Int : 403 ms Sinus bradycardia with occasional Premature atrial complexes ST elevation consider inferior injury or acute infarct ACUTE TN / STEMI Consider right ventricular involvement in acute inferior infarct Abnormal ECG When compared with ECG of 22-Mar-2020 11:16, Significant changes have occurred Confirmed by Shailesh Harmon ([id number]) on 11/12/2023 12:16:21 PM Referred By: REFERRED SELF Confirmed By: Shailesh Harmon
[2023-11-12] MEDS: ICU Protocol for HYPERglycemia SCH (12:54)
--- NOTE | 2023-11-12 13:49 | Critical Care Consultation ---
Date of Consultation November 12, 2023 Assessment & Plan (1) STEMI (ST elevation myocardial infarction): Reason Critically Ill: Status post successful PCI to the RCA for acute ST elevation AR -Planned second stage tomorrow for left-sided lesions (2) Hx of bladder cancer: (3) Dyslipidemia: History of Present Illness Reason for Consultation: Acute ST elevation AR Attending Physician: Igor Glasgow DO History of Present Illness Patient is a 73-year-old male who presented to the emergency department today and was found to have acute ST elevation AR. He went to the cardiac Drop Shipment Clerk and was discovered to have 100% occluded RCA. Patient had mild bradycardia during the procedure, he underwent successful PCI. He was also found to have a significant lesion in the left coronary. At this time there will be a planned staged procedure tomorrow to intervene upon the left lesion. During my evaluation the patient is chest pain free and asymptomatic. Allergies Allergy/AdvReac Type Severity Reaction Status Date / Time No Known Drug Allergies Allergy Mild Verified 11/05/23 09:06 Home Medications Medication Instructions Recorded Confirmed Type aspirin 81 mg tablet,delayed 81 mg PO QAM 09/27/18 11/05/23 History release (Miguel Low Dose Aspirin) flaxseed oil 1,000 mg capsule 1,000 mg PO QAM 09/27/18 11/05/23 History multivitamin 1 tab PO QAM 09/27/18 11/05/23 History psyllium husk 3.4 gram/5.4 gram 1 tsp PO QAM 09/27/18 11/05/23 History oral powder (Metamucil) cranberry 1,000 mg capsule 1,000 mg PO UD 03/21/20 11/05/23 History losartan 100 mg tablet 100 mg PO QAM #90 tabs 03/24/23 11/05/23 Rx sildenafil 100 mg tablet 100 mg PO DAILY PRN sexual 09/07/23 11/05/23 Rx activity #10 tabs hydrochlorothiazide 25 mg tablet 25 mg PO QAM #90 tabs 09/15/23 11/05/23 Rx metoprolol succinate 50 mg 50 mg PO BID 09/22/23 11/05/23 History tablet,extended release 24 hr potassium chloride 20 mEq 20 meq PO QAM #90 tabs 09/22/23 11/05/23 Rx tablet,extended release vitamins A,C,T-ghyw-aznrnx 4,296 1 cap PO BID 09/22/23 11/05/23 History mcg-226 mg-90 mg capsule (PreserVision AREDS) amlodipine 10 mg tablet 10 mg PO DAILY #30 tabs 10/14/23 11/05/23 Rx cholecalciferol (vitamin D3) 1,250 1,250 mcg PO Q7D 10 weeks #10 tabs 11/05/23 11/05/23 Rx mcg (50,000 unit) tablet doxazosin 4 mg tablet 4 mg PO DAILY #90 tabs 11/05/23 11/05/23 Rx levothyroxine 150 mcg tablet 150 mcg PO DAILY #90 tabs 11/05/23 11/05/23 Rx Patient History Medical History Lumbar disc herniation with radiculopathy Hx of esophageal reflux no current issues Dyslipidemia Hypertension Hx of bladder cancer s/p polpectomy, no chemo or XRT/ BCG tx Hx of renal calculi Osteoarthritis Hearing loss Hypothyroidism Obesity Surgical History S/P epidural steroid injection (07/2020) History of bilateral knee replacement x 2 History of transurethral resection of prostate x 2 + TURBT= 12/02/1610/2018- TURP /T History of blepharoplasty (02/13/12) History of colonoscopy Hx of tonsillectomy History of surgery (1959) arms/wrists/ orthopedic surgery 1960's Hx of appendectomy Family History Mother Family history of diabetes mellitus Other No family history of adverse response to anesthesia Social History Smoking Status: Former smoker Tobacco Type: Cigarettes Second Hand Exposure: Yes; Do You Dip or Chew Tobacco: No; Hx Alcohol Use: Yes Alcohol type: hard liquor Hx Substance Use: No Preferred Language: Qatari Communication Ability: Effective Visual Impairment: Limited Hearing Ability: Normal Absorption And Adsorption Engineer Required: No Beliefs That Will Affect Care: None marital status: Current Living Situation: Spouse current occupational status: employed 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 nontoxic. Skin: Warm, dry, Head: Atraumatic Ears, nose, mouth and throat: airway patent Cardiovascular: Normal peripheral perfusion Respiratory: no respiratory distress Gastrointestinal: Non distended Musculoskeletal: No deformity, TR band on right wrist Results & Data Results & Data Vital Signs (Past 12 Hours) Vital Signs Temp Pulse Resp BP Pulse Ox O2 Del Method 11/12/23 13:18 59 L 32 H 95 11/12/23 13:16 149/93 H 11/12/23 13:06 62 15 95 11/12/23 13:01 158/101 H 11/12/23 13:00 58 L 22 95 11/12/23 12:45 165/91 H 11/12/23 12:36 55 L 18 94 11/12/23 12:31 146/89 H 11/12/23 12:31 146/89 H 11/12/23 12:21 54 L 15 92 11/12/23 12:18 133/95 11/12/23 12:12 36.5 C 11/12/23 12:10 133/72 11/12/23 11:57 61 18 91 11/12/23 11:48 55 L 19 93 11/12/23 11:46 118/69 11/12/23 11:33 55 L 19 92 11/12/23 11:31 141/81 H 11/12/23 11:16 124/72 11/12/23 11:09 60 11/12/23 11:00 143/68 H 11/12/23 11:00 36.5 C Room Air 11/12/23 10:54 59 L 25 H 92 11/12/23 10:48 61 23 91 11/12/23 10:39 120/58 L 11/12/23 09:11 53 L 11/12/23 09:05 Room Air 11/12/23 09:05 36.8 C 66 22 163/76 H 94 Room Air Critical Care Results & Data Vital Signs (Past 12 Hours) Vital Signs Temp Pulse Resp BP Pulse Ox O2 Del Method 11/12/23 13:18 59 L 32 H 95 11/12/23 13:16 149/93 H 11/12/23 13:06 62 15 95 11/12/23 13:01 158/101 H 11/12/23 13:00 58 L 22 95 11/12/23 12:45 165/91 H 11/12/23 12:36 55 L 18 94 11/12/23 12:31 146/89 H 11/12/23 12:31 146/89 H 11/12/23 12:21 54 L 15 92 11/12/23 12:18 133/95 11/12/23 12:12 36.5 C 11/12/23 12:10 133/72 11/12/23 11:57 61 18 91 11/12/23 11:48 55 L 19 93 11/12/23 11:46 118/69 11/12/23 11:33 55 L 19 92 11/12/23 11:31 141/81 H 11/12/23 11:16 124/72 11/12/23 11:09 60 11/12/23 11:00 143/68 H 11/12/23 11:00 36.5 C Room Air 11/12/23 10:54 59 L 25 H 92 11/12/23 10:48 61 23 91 11/12/23 10:39 120/58 L 11/12/23 09:11 53 L 11/12/23 09:05 Room Air 11/12/23 09:05 36.8 C 66 22 163/76 H 94 Room Air Lab & Micro Results (Past 24 Hours) RBC 5.34 M/uL (4.70-6.10) 11/12/23 WBC 8.76 K/ul (4.8-10.8) 11/12/23 Hgb 17.0 g/dl (14.0-18.0) 11/12/23 Hct 46.9 % (42.0-52.0) 11/12/23 MCV 87.8 fL (80.0-100.0) 11/12/23 MCH 31.8 pg (25.0-34.0) 11/12/23 MCHC 36.2 g/dL (32.0-36.0) H 11/12/23 RDW Standard Deviation 38.9 fL (36.4-46.3) 11/12/23 RDW Coefficient of Variation 12.2 % (11.5-14.5) 11/12/23 Plt Count 170 K/uL (130-400) 11/12/23 MPV 10.3 fL (9.4-12.4) 11/12/23 Neutrophils (%) (Auto) 70.8 % 11/12/23 Lymphocytes (%) (Auto) 14.5 % 11/12/23 Monocytes # (Auto) 1.16 K/uL (0.11-0.59) H 11/12/23 Eosinophils # (Auto) 0.07 K/uL (0.00-0.50) 11/12/23 Immature Granulocyte % (Auto) 0.2 % 11/12/23 Neutrophils # (Auto) 6.20 K/uL (1.40-6.50) 11/12/23 Lymphocytes # (Auto) 1.27 K/uL (1.20-3.40) 11/12/23 Monocytes # (Auto) 1.16 K/uL (0.11-0.59) H 11/12/23 Eosinophils # (Auto) 0.07 K/uL (0.00-0.50) 11/12/23 Basophils # (Auto) 0.04 K/uL (0.00-0.20) 11/12/23 Immature Granulocyte # (Auto) 0.02 K/uL (0.01-0.20) 4 Na 139 mmol/L (136-145) 11/12/23 K 3.5 mmol/L (3.5-5.1) 11/12/23 Cl 101 mmol/L (98-107) 11/12/23 CO2 27 mmol/L (21-32) 11/12/23 Anion Gap 11 (3-11) 11/12/23 BUN 17 mg/dl (6-23) 11/12/23 Creatinine 1.01 mg/dl (0.6-1.4) 11/12/23 Estimated GFR ( Amer) 83.9 ml/min 11/12/23 Estimated GFR (Non-Af Amer) 72.4 ml/min 11/12/23 BUN/Creatinine Ratio 16.8 (10-20) 11/12/23 Glu 152 mg/dl (70-99(Fasting)) H 11/12/23 Ca 9.2 mg/dl (8.6-10.3) 11/12/23 Total Bilirubin 1.1 mg/dl (0.2-1.0) H 11/12/23 AST 28 U/L (13-39) 11/12/23 ALT 28 U/L (7-52) 11/12/23 Alkaline Phosphatase 59 U/L (34-104) 11/12/23 TP 7.3 gm/dl (6.0-8.3) 11/12/23 Albumin 4.6 gm/dl (3.4-5.0) 11/12/23 Globulin 2.7 gm/dl (2.5-4.0) 11/12/23 Albumin/Globulin Ratio 1.7 (0.9-2) 11/12/23 Calcium Level 9.2 mg/dl (8.6-10.3) 11/12/23 23:59 RT Ventilator Mngmt (Last Documented) Ventilator Ordered Settings Respiratory Rate 32 11/12/23 13:18 Ventilator - PT Measurements Respiratory Rate 32 Coding Level of Care Code 25855 IN/OBS CONSULT LVL 2,35M Diagnoses STEMI (ST elevation myocardial infarction) I21.3 Hx of bladder cancer Z85.51 Dyslipidemia E78.5
[2023-11-12] MEDS: COUGH DROP (SUGAR FREE) LOZ 24 LOZ/1 BOX BUCCAL STA (20:17)
[2023-11-12] MEDS: LOSARTAN POTASSIUM 25 MG TAB PO SCH (20:18)
[2023-11-12] MEDS: METOPROLOL TARTRATE 25 MG TAB PO SCH (20:19)
[2023-11-12] MEDS: TICAGRELOR 90 MG TAB PO SCH (20:22)
[2023-11-12] MEDS: ACETAMINOPHEN 325 MG TAB PO PRN (23:19)
--- NOTE | 2023-11-12 23:21 | XCELERA ---
[id number]\[id number]
[2023-11-13 04:25] LABS: Basophils # (auto) 0.05 K/uL (0.00-0.20); Basophils % (auto) 0.5 %; Eosinophils # (auto) 0.04 K/uL (0.00-0.50); Eosinophils % (auto) 0.4 %; Hematocrit (blood only) 46.3 % (42.0-52.0); Hemoglobin 15.7 g/dl (14.0-18.0); Immature Granulocytes # (auto) 0.04 K/uL (0.01-0.20); Immature Granulocytes % (auto) 0.4 %; Lymphocytes # (auto) 1.18 K/uL (1.20-3.40); Lymphocytes % (auto) 12.9 %; Mean Corpuscular Hemoglobin 30.7 pg (25.0-34.0); Mean Corpuscular Hgb Conc 33.9 g/dL (32.0-36.0); Mean Corpuscular Volume 90.6 fL (80.0-100.0); Mean Platelet Volume 10.3 fL (9.4-12.4); Monocytes # (auto) 1.41 K/uL (0.11-0.59); Monocytes % (auto) 15.4 %; Neutrophils # (auto) 6.42 K/uL (1.40-6.50); Neutrophils % (auto) 70.4 %; Platelet Count 152 K/uL (130-400); RDW Coefficient of Variation 12.4 % (11.5-14.5); RDW Standard Deviation 41.4 fL (36.4-46.3); Red Blood Count 5.11 M/uL (4.70-6.10); White Blood Count 9.14 K/ul (4.8-10.8)
[2023-11-13 04:40] LABS: BUN Creatinine Ratio 17.2 (10-20); Calcium 8.9 mg/dl (8.6-10.3); Creatinine Clr Calc Pharmacy 71.9 ml/min; Est GFR (African American) 66.8 ml/min; Est GFR (Non-African American) 57.6 ml/min; Potassium 3.3 mmol/L (3.5-5.1)
[2023-11-13 04:52] LABS: Troponin I High Sensitivity 13769.7 pg/ml (0-20)
[2023-11-13] MEDS: POTASSIUM CHLORIDE CRTAB 20 MEQ TABCR PO STA (05:54)
[2023-11-13] MEDS: POTASSIUM CHLORIDE / WTR 10 MEQ/100 ML PLCT IV SCH (05:54)
[2023-11-13] MEDS: POTASSIUM CHLORIDE 20 MEQ/15 ML UDC PO STA (06:04)
[2023-11-13 07:08] LABS: Estimated Average Glucose 131 mg/dl; Hemoglobin A1C 6.2 % (4.5-5.6)
--- NOTE | 2023-11-13 07:58 | Critical Care Progress Note ---
Date of Service November 13, 2023 Assessment & Plan (1) STEMI (ST elevation myocardial infarction): Plan: Reason Critically Ill: Status post successful PCI to the RCA for acute ST elevation [place] -Second stage PCI later today -Echocardiogram reviewed -Dual antiplatelet therapy, beta-claudy, RENATA inhibitor, high intensity statin (2) Hx of bladder cancer: (3) Dyslipidemia: Admission and Anticipated Discharge Date Admission Date: November 12, 2023 Subjective No overnight events Physical Exam Physical Exam: General: Alert. nontoxic. Skin: Warm, dry, Head: Atraumatic Ears, nose, mouth and throat: airway patent Cardiovascular: Normal peripheral perfusion Respiratory: no respiratory distress Gastrointestinal: Non distended Musculoskeletal: No deformity Results & Data Results & Data Vital Signs (Past 12 Hours) Vital Signs Temp Pulse Resp BP Pulse Ox O2 Del Method O2 Flow Rate 11/13/23 06:00 64 16 165/88 H 94 Room Air 11/13/23 05:00 61 22 149/81 H 90 Room Air 11/13/23 04:00 64 17 163/80 H 95 Nasal Cannula 1 11/13/23 04:00 36.7 C 11/13/23 03:00 54 L 21 126/62 92 Nasal Cannula 1 11/13/23 02:00 54 L 21 151/63 H 94 Nasal Cannula 1 11/13/23 01:00 63 23 140/57 L 94 Nasal Cannula 1 11/13/23 00:00 66 18 161/77 H 92 Nasal Cannula 1 11/12/23 23:43 65 11/12/23 23:18 38.3 C H 11/12/23 23:00 66 18 138/60 92 Nasal Cannula 1 11/12/23 22:00 57 L 16 169/87 H 92 Room Air 11/12/23 21:00 66 18 150/78 H 92 Room Air 11/12/23 20:00 37.9 C H 72 20 178/84 H 93 Room Air 11/12/23 19:57 Room Air Critical Care Results & Data Vital Signs (Past 12 Hours) Vital Signs Temp Pulse Resp BP Pulse Ox O2 Del Method O2 Flow Rate 11/13/23 06:00 64 16 165/88 H 94 Room Air 11/13/23 05:00 61 22 149/81 H 90 Room Air 11/13/23 04:00 64 17 163/80 H 95 Nasal Cannula 1 08/16/24 04:00 36.7 C 11/13/23 03:00 54 L 21 126/62 92 Nasal Cannula 1 11/13/23 02:00 54 L 21 151/63 H 94 Nasal Cannula 1 11/13/23 01:00 63 23 140/57 L 94 Nasal Cannula 1 11/13/23 00:00 66 18 161/77 H 92 Nasal Cannula 1 11/12/23 23:43 65 11/12/23 23:18 38.3 C H 11/12/23 23:00 66 18 138/60 92 Nasal Cannula 1 11/12/23 22:00 57 L 16 169/87 H 92 Room Air 11/12/23 21:00 66 18 150/78 H 92 Room Air 11/12/23 20:00 37.9 C H 72 20 178/84 H 93 Room Air 11/12/23 19:57 Room Air Lab & Micro Results (Past 24 Hours) RBC 4.57 M/uL (4.70-6.10) L 11/14/23 WBC 7.29 K/ul (4.8-10.8) 11/14/23 Hgb 14.2 g/dl (14.0-18.0) 11/14/23 Hct 41.6 % (42.0-52.0) L 11/14/23 MCV 91.0 fL (80.0-100.0) 11/14/23 MCH 31.1 pg (25.0-34.0) 11/14/23 MCHC 34.1 g/dL (32.0-36.0) 11/14/23 RDW Standard Deviation 41.5 fL (36.4-46.3) 11/14/23 RDW Coefficient of Variation 12.5 % (11.5-14.5) 11/14/23 Plt Count 158 K/uL (130-400) 11/14/23 MPV 10.5 fL (9.4-12.4) 11/14/23 Neutrophils (%) (Auto) 70.6 % 11/14/23 Lymphocytes (%) (Auto) 11.9 % 11/14/23 Monocytes # (Auto) 1.21 K/uL (0.11-0.59) H 11/14/23 Eosinophils # (Auto) 0.01 K/uL (0.00-0.50) 11/14/23 Immature Granulocyte % (Auto) 0.4 % 11/14/23 Neutrophils # (Auto) 5.14 K/uL (1.40-6.50) 11/14/23 Lymphocytes # (Auto) 0.87 K/uL (1.20-3.40) L 11/14/23 Monocytes # (Auto) 1.21 K/uL (0.11-0.59) H 11/14/23 Eosinophils # (Auto) 0.01 K/uL (0.00-0.50) 11/14/23 Basophils # (Auto) 0.03 K/uL (0.00-0.20) 11/14/23 Immature Granulocyte # (Auto) 0.03 K/uL (0.01-0.20) 4 Na 139 mmol/L (136-145) 11/14/23 K 3.2 mmol/L (3.5-5.1) L 11/14/23 Cl 102 mmol/L (98-107) 11/14/23 CO2 30 mmol/L (21-32) 11/14/23 Anion Gap 7 (3-11) 11/14/23 BUN 16 mg/dl (6-23) 11/14/23 Creatinine 1.11 mg/dl (0.6-1.4) 11/14/23 Estimated GFR ( Amer) 74.9 ml/min 11/14/23 Estimated GFR (Non-Af Amer) 64.6 ml/min 11/14/23 BUN/Creatinine Ratio 14.4 (10-20) 11/14/23 Glu 123 mg/dl (70-99(Fasting)) H 11/14/23 Ca 8.5 mg/dl (8.6-10.3) L 11/14/23 Calcium Level 8.5 mg/dl (8.6-10.3) L 11/14/23 03:42 I & O Totals 24 Hours 11/12/23 11/13/23 11/14/23 06:59 06:59 06:59 Intake Total 100 / 100 Output Total Balance 99 / 99 Cumulative 11/12/23 09:02 thru 11/13/23 06:54 Intake Total 100 Output Total 1 Balance 99 RT Ventilator Mngmt (Last Documented) Ventilator Ordered Settings Respiratory Rate 16 11/13/23 06:00 Ventilator - PT Measurements Respiratory Rate 16 Coding Level of Care Code 84507 SUB INP/OBS CARE 04/23MIN Diagnoses STEMI (ST elevation myocardial infarction) I21.3 Hx of bladder cancer Z85.51 Dyslipidemia E78.5
[2023-11-13] MEDS: ASPIRIN 81 MG ECTAB PO SCH (08:51)
[2023-11-13] MEDS: ATORVASTATIN 40 MG TAB PO SCH (08:51)
[2023-11-13] MEDS: PANTOprazole 40 MG TAB PO SCH (08:51)
--- NOTE | 2023-11-13 13:24 | Hospitalist Progress Note ---
Date of Service November 13, 2023 Assessment & Plan (1) STEMI (ST elevation myocardial infarction): Plan: - Presented with chest pain and heaviness - EKG showed inferior lead ST elevations - Emergent cath, s/p PCI+REGINE x1 to 100% occluded RCA. LAD 95% occluded, plans for second cath/PCI/REGINE - heparin gtt not recommended at this time - troponin trending - Echo 11/11: LVEF 60-65%, mild concentric LVH, mildly dilated RV, grade 2 diastolic dysfunction - Cardiology following, continue DAPT, ARB, statin therapy (2) Lumbar disc herniation with radiculopathy: Plan: - No acute changes or complaints (3) Hx of bladder cancer: Plan: - Hx transitional cell carcinoma s/p resection 2016, 3 papillary tumors fulgurated in 2021 and 1 in 2022 (4) Dyslipidemia: Plan: - Atorvastatin 80 mg PO Qam (5) Hypertension: Plan: - Lopressor 12.5 mg PO BID, Losartan 25 mg PO Q12h (6) Hypothyroidism: Plan: - Synthroid 150 mcg PO daily Admission and Anticipated Discharge Date Admission Date: November 12, 2023 Supervising Physician Co-Signing Physician Notes I personally examined the patient and verified all alfredo points of history and exam, discussed case, and agree with decision making with Dr Mesa feeling better awaiting next stenting vitals noted nad heent nc at mmm breathing unlabored no accessory muscles good effort skin no rashes no pallor or icterus CAD - for stenting, med management. extensive discussion on lifestyle and critical importance of eating/exercise change. he seemed rather reluctant/almost obstinate towards changed - utilized multiple angles of motivational interviewing/education/family to hopefully help affect at least some positive change. otherwise as above Mannie De León is a 73 y/o M with a past medical history of HTN, hypothyroidism and urinary retention arriving to the [facility] ED due to 2 hours of chest heaviness and pressure and was taken to the micro lab analyst currently s/p PCI and REGINE placement to 100% occluded RCA. The patient is now admitted and will undergo a second cath and stent placement in his 95% stenosed LAD later today. Today the patient does not have any acute concerns or complaints. Physical Exam Physical Exam: General: patient resting comfortably, NAD, non-toxic in appearance, answers questions appropriately. Skin: warm, dry, intact HEENT: NC/AT, anicteric sclera, conjunctiva without injection, moist mucus membranes. Heart: +S1/S2, regular, no m/r/g Lungs: equal air entry bilaterally, no rales/rhonchi/wheezes Abd: +BS, soft, NT/ND Ext: warm, no clubbing/cyanosis or edema Neuro: nonfocal, speech intact, no facial droop, moving all extremities. Results & Data Results & Data Vital Signs (Past 12 Hours) Vital Signs Temp Pulse Resp BP Pulse Ox O2 Del Method O2 Flow Rate 11/13/23 12:03 61 16 91 11/13/23 12:00 156/86 H 11/13/23 11:08 173/80 H 11/13/23 11:03 73 23 11/13/23 10:00 61 13 160/81 H 91 11/13/23 09:30 65 17 94 11/13/23 09:00 81 23 11/13/23 08:10 Room Air 11/13/23 08:01 117/68 11/13/23 08:00 61 26 H 90 11/13/23 08:00 68 11/13/23 07:00 162/85 H 11/13/23 07:00 62 19 94 11/13/23 06:00 64 16 165/88 H 94 Room Air 11/13/23 05:00 61 22 149/81 H 90 Room Air 11/13/23 04:00 64 17 163/80 H 95 Nasal Cannula 1 11/13/23 04:00 36.7 C 11/13/23 03:00 54 L 21 126/62 92 Nasal Cannula 1 11/13/23 02:00 54 L 21 151/63 H 94 Nasal Cannula 1 Resident Activity Tracking Resident Involvement: Resident Care Provided Care Provided: Adult Hospital Medicine (1) STEMI (ST elevation myocardial infarction) Involved coronary artery: right coronary artery Qualified Code(s): I21.11 - ST elevation (STEMI) myocardial infarction involving right coronary artery (5) Hypertension Hypertension type: primary hypertension Qualified Code(s): I10 - Essential (primary) hypertension (6) Hypothyroidism Hypothyroidism type: acquired Qualified Code(s): E03.9 - Hypothyroidism, unspecified
--- NOTE | 2023-11-13 15:18 | Electrocardiogram Report ---
Test Reason : Blood Pressure : */* mmHG Vent. Rate : 61 BPM Atrial Rate : 61 BPM P-R Int : 176 ms QRS Dur : 100 ms QT Int : 410 ms P-R-T Axes : 62 -25 95 degrees QTcB Int : 412 ms Poor data quality, interpretation may be adversely affected Sinus rhythm with Premature atrial complexes Left ventricular hypertrophy with repolarization abnormality Inferior infarct , age undetermined Abnormal ECG When compared with ECG of 12-Nov-2023 09:11, (unconfirmed) ST less elevated in Inferior leads ST now depressed in Lateral leads Confirmed by Shailesh Harmon ([id number]) on 11/13/2023 3:18:28 PM Referred By: REFERRED SELF Confirmed By: Shailesh Harmon
[2023-11-13] MEDS: fentaNYL citrate PF 100 MCG/2 ML VIAL ONE ×2 (16:31→16:48)
[2023-11-13] MEDS: HEPARIN (PORCINE) 1000 UNIT/ML 10 ML (CATH LAB USE ONLY) ONE (16:31)
[2023-11-13] MEDS: MIDAZOLAM HCL 1 MG/ML 2ML VIAL ONE ×3 (16:32→17:18)
[2023-11-13] MEDS: niCARdipine HCL INJ 2.5 MG/ML 10 ML AMP ONE (16:32)
[2023-11-13] MEDS: NITROGLYCERIN/D5W 100MCG/ML 20ML SYR ONE (16:32)
[2023-11-13] MEDS: IODIXANOL (VISIPAQUE) 320 MG/ML 100ML IV ONE (16:47)
[2023-11-13] MEDS: LIDOCAINE 1% LOCAL 20 ML VIAL ONE (17:18)
--- NOTE | 2023-11-13 17:47 | Billing Data ---
Date of Service November 13, 2023 Coding Level of Care Code 17871 SUB INP/OBS CARE MIN
--- NOTE | 2023-11-13 18:46 | Post Anesthesia Assessment ---
Date of Service November 13, 2023 Post Sedation Assessment Vital Signs Temp Pulse Pulse Resp BP BP Pulse Ox 11/13/23 18:41 62 11/13/23 18:33 64 21 89 L 11/13/23 18:30 147/77 H 11/13/23 18:21 65 19 85 L 11/13/23 18:18 69 25 H 90 11/13/23 18:15 146/85 H 11/13/23 18:15 146/85 H 11/13/23 18:15 146/85 H 11/13/23 18:09 66 23 91 11/13/23 18:00 66 16 87 L 11/13/23 14:34 73 18 177/93 H 95 11/13/23 14:06 62 22 91 11/13/23 14:00 177/107 H 11/13/23 13:15 74 19 92 11/13/23 13:00 171/85 H 11/13/23 12:03 61 16 91 11/13/23 12:00 156/86 H 11/13/23 11:08 173/80 H 11/13/23 11:03 73 23 11/13/23 10:00 61 13 160/81 H 91 11/13/23 09:30 65 17 94 11/13/23 09:00 81 23 11/13/23 08:10 11/13/23 08:01 117/68 11/13/23 08:00 98.4 F 11/13/23 08:00 61 26 H 90 11/13/23 08:00 68 11/13/23 07:00 162/85 H 11/13/23 07:00 62 19 94 11/13/23 06:00 64 16 165/88 H 94 11/13/23 05:00 61 22 149/81 H 90 11/13/23 04:00 64 17 163/80 H 95 11/13/23 04:00 98.1 F 11/13/23 03:00 54 L 21 126/62 92 11/13/23 02:00 54 L 21 151/63 H 94 11/13/23 01:00 63 23 140/57 L 94 11/13/23 00:00 66 18 161/77 H 92 11/12/23 23:43 65 11/12/23 23:18 100.9 F H 11/12/23 23:00 66 18 138/60 92 08/15/24 22:00 57 L 16 169/87 H 92 11/12/23 21:00 66 18 150/78 H 92 11/12/23 20:00 100.2 F H 72 20 178/84 H 93 11/12/23 19:57 11/12/23 19:30 63 147/71 H 11/12/23 19:17 69 11/12/23 19:00 64 16 156/72 H 93 O2 Del Method O2 Flow Rate 11/13/23 18:41 11/13/23 18:33 11/13/23 18:30 11/13/23 18:21 11/13/23 18:18 11/13/23 18:15 11/13/23 18:15 11/13/23 18:15 11/13/23 18:09 11/13/23 18:00 11/13/23 14:34 Room Air 11/13/23 14:06 11/13/23 14:00 11/13/23 13:15 11/13/23 13:00 11/13/23 12:03 11/13/23 12:00 11/13/23 11:08 11/13/23 11:03 11/13/23 10:00 11/13/23 09:30 11/13/23 09:00 11/13/23 08:10 Room Air 11/13/23 08:01 11/13/23 08:00 11/13/23 08:00 11/13/23 08:00 11/13/23 07:00 11/13/23 07:00 11/13/23 06:00 Room Air 11/13/23 05:00 Room Air 11/13/23 04:00 Nasal Cannula 1 11/13/23 04:00 11/13/23 03:00 Nasal Cannula 1 11/13/23 02:00 Nasal Cannula 1 11/13/23 01:00 Nasal Cannula 1 11/13/23 00:00 Nasal Cannula 1 11/12/23 23:43 11/12/23 23:18 11/12/23 23:00 Nasal Cannula 1 11/12/23 22:00 Room Air 11/12/23 21:00 Room Air 11/12/23 20:00 Room Air 11/12/23 19:57 Room Air 11/12/23 19:30 11/12/23 19:17 11/12/23 19:00 Room Air Recovery Score Activity: Moves 4 extremities Respiration: Deep Breath/Cough Circulation: +/-20% PreAnes Value Consciousness: Fully Awake Oxygen Saturation: O2 needed for >90% Discharge Sedation Level of Care: Fast Track Phase II Post Sedation Plan On clinical assessment, the patient appears to have tolerated the sedation without complications. Patient is recovering as anticipated. Patient will continue to be monitored by nursing and may be discharged when sedation discharge criteria are met per below protocol. Upon Completions of procedure up to 15 minutes continue every 5 minute vital signs and the P.A.R. score; then discharge to a Phase I or Fast Track to Phase II per the following guidelines: * Discharge Patient to appropriate Phase II area if PAR is 8 or greater or return to pre- procedure baseline. The post - procedure orders will be as directed. * If PAR score is less than 8 or not return to pre-procedure baseline then patient will follow Phase I monitoring till PAR is reached for Phase II. The Phase I may be done in procedure room or may call to secure a Phase I area. * If naloxone or flumazenil are used for reversal, hold in Phase I for continued monitoring from when last reversal dose was given for a minimum of 60 minutes or longer pending the nurse and/or physician discretion of patient condition before discharge to Phase II. Please call the Sedation Physician to re-evaluate and complete post-note for discharge to Phase II area. Do NOT discharge from procedure sedation or Phase 1 until post- sedation evaluation note is complete by procedure /sedation MD Sedation Discharge Instructions to be given to the patient at discharge to home.
--- NOTE | 2023-11-13 22:40 | Cardiac Catheterization ---
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 Clinical evaluation leading to the procedure CAD Presenation: STEMI Diagnostic Physicians Name: Familia Abraham MD Closure Device Recommendations: PCI without planned CABG Cardiac Cath Procedure Full Procedure Date November 13, 2023 Pre-Procedure Diagnosis Pre-Procedure Diagnosis: CAD AUC Score AUC Score: 7 Post-Procedure Diagnosis Post-Procedure Diagnosis: Severe CAD, Successful PCI and Normal Intracardiac Pressures Procedure(s) Performed Procedure(s) Performed: Coronary Angiography, Left Heart Cath and Drug Eluting Stent Non Destructive Testing Supervisor Familia Abraham MD Company Marker(s) [employer] Estimated Blood Loss Estimated Blood Loss: 25 Medication(s) Medication(s): Fentanyl, Heparin, Lidocaine 1%, Nicardipine, Nitroglycerin and Versed Medication(s): Ticagerlor Summary of Findings Indication: Staged PCI of severe non-culprit mid LAD disease after PPCI for RCA STEMI 11/12/2023. Access: 6 Fr slender left radial artery Catheters: EBU 3.5 guide, pigtail Findings: LM -Short, normal caliber, no significant disease LAD -medium caliber, 95% focal mid segment stenosis after takeoff of second diagonal. Small distal LAD without significant disease and extends to apex. D2 without significant disease. Circumflex -medium caliber, 50-60% mid segment stenosis. Medium OM 2 without significant disease. Small left PLB without disease. LVEDP -14 -- PCI -- Antithrombotic therapy: Heparin, Procedure: Left main cannulated with cannulated with EBU 3.5 Pre-procedure flow PANKAJ 3 Journeyman [employer] 50 wire passed across lesion into distal vessel Mid LAD lesion predilated with 2.5 compliant balloon With the aid of a GuideLiner support catheter dilated lesion stented with 2.75 x 22 mm Webster drug-eluting stent Stent post-dilated with stent balloon IC vasodilators administered for spasm In small distal LAD appeared to have nonflow limiting wire dissection. Attempt made to rewire across with area relief pilot 50 and whisper wire but difficulty to get to site of injury due to tortuosity As patient chest pain-free with PANKAJ-3 flow decision made to forego further attempts to cross lesion due to concern for worsening dissection Additional IC vasodilators administered Post procedure PANKAJ 3 flow, stent well expanded with minimal residual stenosis. Arterial Closure: TR band After completion of procedure patient noted to have large forearm hematoma which appeared to be expanding above the elbow despite initial attempts at compression with blood pressure cuff. Decision made to evaluate with angiography and possibly balloon tamponade. Right FINNISH RUBBER accessed under ultrasound guidance with placement of 6 Fr sheath JR4 navigated over a J-wire into left proximal brachial artery Angiography of brachial, radial, interosseous and ulnar artery revealed no apparent perforation or active hemorrhage. Catheter removed. Right FINNISH RUBBER closure with Angio-Seal and manual hold. Further compression of left forearm hematoma with 2 blood pressure cuffs inflated above systolic pressure. After 20 minutes significant improvement in hematoma, forearm soft with normal distal capillary refill, sensation. Summary: 1. PCI of mid LAD with single drug-eluting stent (2.75 x 22 mm Webster). Procedure complicated by non-flow limiting wire dissection in small distal LAD 2. Left forearm hematoma after completion of procedure. 3. Left upper extremity angiography revealed no perforation or active hemorrhage Recommendations: To ICU for continued monitoring Medical management of residual circumflex and distal LAD wire dissection. Continue DAPT with aspirin, ticagrelor for at least 1 year, likely extended P2Y12 in the setting of multivessel stenting Continue left forearm compression with inflated BP cuff and gradual deflation Hemodynamics Rest Ao:: 194/89/124 Final Ao: 155/99/117 LV: 157/14 Recommendations Recommendations: PCI without planned CABG Specimens Specimens: None Radiation Exposure (mGy) 4849 Contrast (mls) 145 Anesthesia Moderate 7745-8582 Procedural Complication(s) Distal LAD wire dissection Left forearm hematoma Disposition ICU I attest to the content of the Intraoperative Record and any orders documented therein. Any exceptions are noted below. Attraction World[employer] Card Cath Procedure Codes Cardiac Catheterization Procedure 1: Cardiovascular Cath Procedures: 77541 Left Heart Cath (+/-LV) Therapeutic Services & Ancillary Procedure 1: Cardiovascular Tx and Anc Procedures: 38190 Ultrasonic Guidance Vascular Access Moderate Sedation Procedure 1: Sedation/Anesthesia: 35110 Mod Sedation by the same physician;Init15 Min Child Age 5 & Up Procedure 2: Sedation/Anesthesia: 51150 Mod Sedation by the same physician; Ea [id number] Minutes Stenting Procedure 1: Cardiovascular Stent Procedures: 21123 Perc transcatheter placement of intracoronary stent(s), with ang Vascular Charges Angiography/Venography Procedure 1: Angiography/Venography charges: 48321 Initial 3rd order or selective abd, pelvic, or LE branch PG Care Time/CCT Total # of Minutes Spent Total Time Spent with Patient: Total time spent is greater than 50% in coordination of care (as documented) at patient's floor/unit and/or counseling patient:
[2023-11-14 04:23] LABS: BUN Creatinine Ratio 14.4 (10-20); Calcium 8.5 mg/dl (8.6-10.3); Est GFR (African American) 74.9 ml/min; Est GFR (Non-African American) 64.6 ml/min; Potassium 3.2 mmol/L (3.5-5.1)
[2023-11-14 04:25] LABS: Basophils # (auto) 0.03 K/uL (0.00-0.20); Basophils % (auto) 0.4 %; Eosinophils # (auto) 0.01 K/uL (0.00-0.50); Eosinophils % (auto) 0.1 %; Hematocrit (blood only) 41.6 % (42.0-52.0); Hemoglobin 14.2 g/dl (14.0-18.0); Immature Granulocytes # (auto) 0.03 K/uL (0.01-0.20); Immature Granulocytes % (auto) 0.4 %; Lymphocytes # (auto) 0.87 K/uL (1.20-3.40); Lymphocytes % (auto) 11.9 %; Mean Corpuscular Hemoglobin 31.1 pg (25.0-34.0); Mean Corpuscular Hgb Conc 34.1 g/dL (32.0-36.0); Mean Platelet Volume 10.5 fL (9.4-12.4); Monocytes # (auto) 1.21 K/uL (0.11-0.59); Monocytes % (auto) 16.6 %; Neutrophils # (auto) 5.14 K/uL (1.40-6.50); Neutrophils % (auto) 70.6 %; Platelet Count 158 K/uL (130-400); RDW Coefficient of Variation 12.5 % (11.5-14.5); RDW Standard Deviation 41.5 fL (36.4-46.3); Red Blood Count 4.57 M/uL (4.70-6.10); White Blood Count 7.29 K/ul (4.8-10.8)
[2023-11-14] MEDS: POTASSIUM CHLORIDE CRTAB 20 MEQ TABCR PO STA ×2 (05:35→19:38)
[2023-11-14] MEDS: LEVOTHYROXINE SODIUM 150 MCG TABLET PO SCH (06:36)
--- NOTE | 2023-11-14 07:35 | Hospitalist Progress Note ---
Date of Service November 14, 2023 Assessment & Plan (1) STEMI (ST elevation myocardial infarction): Plan: STEMI s/p PCI (11/11) and REGINE placement on to 100% occluded RCA. Then patient underwent a second a cath on 11/12 and had a stent placement in his 95% stenosed LAD, the Procedure was complicated by non-flow limiting wire dissection in small distal LAD. -Presented with chest pain and heaviness.EKG showed inferior lead ST elevations - Echo 11/11: LVEF 60-65%, mild concentric LVH, mildly dilated RV, grade 2 diastolic dysfunction - continue DAPT, ARB, statin therapy -Tele, repeat ECG AM -Repeat labs. monitor K/Mg. consider downgrade per cardiology and observe overnight. (2) Lumbar disc herniation with radiculopathy: Plan: - No acute changes or complaints (3) Hx of bladder cancer: Plan: - Hx transitional cell carcinoma s/p resection 2016, 3 papillary tumors fulgurated in 2021 and 1 in 2022 (4) Dyslipidemia: Plan: - Atorvastatin 80 mg PO Qam (5) Hypertension: Plan: - Lopressor 12.5 mg PO BID, Losartan 25 mg PO Q12h (6) Hypothyroidism: Plan: - Synthroid 150 mcg PO daily Admission and Anticipated Discharge Date Admission Date: November 12, 2023 Supervising Physician Co-Signing Physician Notes I personally examined the patient and verified all alfredo points of history and exam, discussed case, and agree with decision making with Dr Mesa Feels good would like to go home. Discussed with cardiology. Today he is much more receptive to lifestyle counseling. vitals noted nad heent nc at mmm breathing unlabored no accessory muscles good effort skin no rashes no pallor or icterus CAD - for stenting, med management. I again repeated and reiterated extensive discussion on lifestyle and critical importance of eating/exercise change. today much more receptive. Hopefully home tomorrow. 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 The patient underwent a second cath on 11/12 and a stent was placed in his 95% stenosed LAD, the Procedure was complicated by non-flow limiting wire dissection in small distal LAD. Today the patient feels better, sat out in chair having breakfast this morning. No overnight events. Denies any chest pain, SoB, palpitations, fevers, chills denies any hematuria. Denies any arm pain. Left arm bruising improving. For stepdown today from ICU. Physical Exam Physical Exam: General: patient resting comfortably, NAD, non-toxic in appearance, answers questions appropriately. Skin: Right and left arm bruising improving post procedure. Right inguinal procedure site clean , no signs of bleeding or infection. HEENT: NC/AT, anicteric sclera, conjunctiva without injection, moist mucus membranes. Heart: +S1/S2, regular, no m/r/g Lungs: equal air entry bilaterally, no rales/rhonchi/wheezes Abd: +BS, soft, NT/ND Ext: warm, no clubbing/cyanosis or edema Neuro: nonfocal, speech intact, no facial droop, moving all extremities. ENMT: external ear and nose normal, oropharynx normal Mallampati Class: Ot her Respiratory: normal respiratory effort Cardiovascular: Rate/Rhythm: regular rate and + bradycardic Results & Data Results & Data Vital Signs (Past 12 Hours) Vital Signs Temp Pulse Resp BP Pulse Ox O2 Del Method O2 Flow Rate 11/14/23 06:00 66 19 166/90 H 92 Nasal Cannula 2 11/14/23 05:00 74 16 145/72 H 94 Nasal Cannula 2 11/14/23 03:31 73 149/60 H 93 Nasal Cannula 2 11/14/23 03:01 70 170/84 H 91 Nasal Cannula 2 11/14/23 03:01 67 18 170/84 H 93 Nasal Cannula 2 11/14/23 02:31 62 22 157/85 H 94 Nasal Cannula 2 11/14/23 02:01 65 20 155/76 H 94 Nasal Cannula 2 11/14/23 01:33 36.7 C 68 18 162/56 H 94 Nasal Cannula 2 11/14/23 01:31 71 18 162/56 H 92 Room Air 11/14/23 01:01 62 20 149/73 H 90 Room Air 11/14/23 00:01 Room Air 11/14/23 00:00 66 19 157/68 H 91 Room Air 11/13/23 23:00 69 18 143/60 H 90 Room Air 11/13/23 23:00 65 11/13/23 22:41 144/75 H 11/13/23 22:24 77 18 91 Room Air 11/13/23 22:01 76 16 153/91 H 90 Room Air 11/13/23 21:45 74 22 165/92 H 90 Room Air 11/13/23 21:31 77 17 160/80 H 91 Room Air 11/13/23 20:30 76 21 176/89 H 90 Room Air 11/13/23 20:20 175/94 H 11/13/23 20:15 66 19 167/90 H 90 Room Air 11/13/23 20:00 Room Air 11/13/23 20:00 169/87 H 11/13/23 19:46 61 18 153/86 H 91 Room Air (1) STEMI (ST elevation myocardial infarction) Involved coronary artery: right coronary artery Qualified Code(s): I21.11 - ST elevation (STEMI) myocardial infarction involving right coronary artery (5) Hypertension Hypertension type: primary hypertension Qualified Code(s): I10 - Essential (primary) hypertension (6) Hypothyroidism Hypothyroidism type: acquired Qualified Code(s): E03.9 - Hypothyroidism, unspecified
--- NOTE | 2023-11-14 08:07 | Critical Care Progress Note ---
Date of Service November 14, 2023 Assessment & Plan (1) STEMI (ST elevation myocardial infarction): Plan: Reason Critically Ill: Status post successful PCI to the RCA for acute ST elevation VA -Second stage PCI completed yesterday, discussed with interventional cardiology -Echocardiogram reviewed -Dual antiplatelet therapy, beta-claudy, RENATA inhibitor, high intensity statin Critical care will sign off (2) Hx of bladder cancer: (3) Dyslipidemia: Admission and Anticipated Discharge Date Admission Date: November 12, 2023 Subjective No overnight events. Feels improved, no significant pain in either wrist, swelling improved and right forearm Physical Exam Physical Exam: General: Alert. nontoxic. Skin: Warm, dry, Head: Atraumatic Ears, nose, mouth and throat: airway patent Cardiovascular: Normal peripheral perfusion Respiratory: no respiratory distress Gastrointestinal: Non distended Musculoskeletal: No deformity, bilateral forearm compartments are soft mild ecchymosis over right forearm Results & Data Results & Data Vital Signs (Past 12 Hours) Vital Signs Temp Pulse Resp BP Pulse Ox O2 Del Method O2 Flow Rate 11/14/23 06:00 66 19 166/90 H 92 Nasal Cannula 2 11/14/23 05:00 74 16 145/72 H 94 Nasal Cannula 2 11/14/23 03:31 73 149/60 H 93 Nasal Cannula 2 11/14/23 03:01 70 170/84 H 91 Nasal Cannula 2 11/14/23 03:01 67 18 170/84 H 93 Nasal Cannula 2 11/14/23 02:31 62 22 157/85 H 94 Nasal Cannula 2 11/14/23 02:01 65 20 155/76 H 94 Nasal Cannula 2 11/14/23 01:33 36.7 C 68 18 162/56 H 94 Nasal Cannula 2 11/14/23 01:31 71 18 162/56 H 92 Room Air 11/14/23 01:01 62 20 149/73 H 90 Room Air 11/14/23 00:01 Room Air 11/14/23 00:00 66 19 157/68 H 91 Room Air 11/13/23 23:00 69 18 143/60 H 90 Room Air 11/13/23 23:00 65 11/13/23 22:41 144/75 H 11/13/23 22:24 77 18 91 Room Air 11/13/23 22:01 76 16 153/91 H 90 Room Air 11/13/23 21:45 74 22 165/92 H 90 Room Air 11/13/23 21:31 77 17 160/80 H 91 Room Air 11/13/23 20:30 76 21 176/89 H 90 Room Air 11/13/23 20:20 175/94 H 11/13/23 20:15 66 19 167/90 H 90 Room Air Critical Care Results & Data Vital Signs (Past 12 Hours) Vital Signs Temp Pulse Resp BP Pulse Ox O2 Del Method O2 Flow Rate 11/14/23 08:12 67 20 165/87 H 90 11/14/23 08:00 58 L 11/14/23 07:09 59 L 19 151/98 H 91 11/14/23 06:00 66 19 166/90 H 92 Nasal Cannula 2 11/14/23 05:00 74 16 145/72 H 94 Nasal Cannula 2 11/14/23 03:31 73 149/60 H 93 Nasal Cannula 2 11/14/23 03:01 70 170/84 H 91 Nasal Cannula 2 11/14/23 03:01 67 18 170/84 H 93 Nasal Cannula 2 11/14/23 02:31 62 22 157/85 H 94 Nasal Cannula 2 11/14/23 02:01 65 20 155/76 H 94 Nasal Cannula 2 11/14/23 01:33 36.7 C 68 18 162/56 H 94 Nasal Cannula 2 11/14/23 01:31 71 18 162/56 H 92 Room Air 11/14/23 01:01 62 20 149/73 H 90 Room Air 11/14/23 00:01 Room Air 11/14/23 00:00 66 19 157/68 H 91 Room Air 11/13/23 23:00 69 18 143/60 H 90 Room Air 11/13/23 23:00 65 11/13/23 22:41 144/75 H 11/13/23 22:24 77 18 91 Room Air 11/13/23 22:01 76 16 153/91 H 90 Room Air 11/13/23 21:45 74 22 165/92 H 90 Room Air 11/13/23 21:31 77 17 160/80 H 91 Room Air Lab & Micro Results (Past 24 Hours) RBC 4.57 M/uL (4.70-6.10) L 11/14/23 WBC 7.29 K/ul (4.8-10.8) 11/14/23 Hgb 14.2 g/dl (14.0-18.0) 11/14/23 Hct 41.6 % (42.0-52.0) L 11/14/23 MCV 91.0 fL (80.0-100.0) 11/14/23 MCH 31.1 pg (25.0-34.0) 11/14/23 MCHC 34.1 g/dL (32.0-36.0) 11/14/23 RDW Standard Deviation 41.5 fL (36.4-46.3) 11/14/23 RDW Coefficient of Variation 12.5 % (11.5-14.5) 11/14/23 Plt Count 158 K/uL (130-400) 11/14/23 MPV 10.5 fL (9.4-12.4) 11/14/23 Neutrophils (%) (Auto) 70.6 % 11/14/23 Lymphocytes (%) (Auto) 11.9 % 11/14/23 Monocytes # (Auto) 1.21 K/uL (0.11-0.59) H 11/14/23 Eosinophils # (Auto) 0.01 K/uL (0.00-0.50) 11/14/23 Immature Granulocyte % (Auto) 0.4 % 11/14/23 Neutrophils # (Auto) 5.14 K/uL (1.40-6.50) 11/14/23 Lymphocytes # (Auto) 0.87 K/uL (1.20-3.40) L 11/14/23 Monocytes # (Auto) 1.21 K/uL (0.11-0.59) H 11/14/23 Eosinophils # (Auto) 0.01 K/uL (0.00-0.50) 11/14/23 Basophils # (Auto) 0.03 K/uL (0.00-0.20) 11/14/23 Immature Granulocyte # (Auto) 0.03 K/uL (0.01-0.20) 4 Na 139 mmol/L (136-145) 11/14/23 K 3.2 mmol/L (3.5-5.1) L 11/14/23 Cl 102 mmol/L (98-107) 11/14/23 CO2 30 mmol/L (21-32) 11/14/23 Anion Gap 7 (3-11) 11/14/23 BUN 16 mg/dl (6-23) 11/14/23 Creatinine 1.11 mg/dl (0.6-1.4) 11/14/23 Estimated GFR ( Amer) 74.9 ml/min 11/14/23 Estimated GFR (Non-Af Amer) 64.6 ml/min 11/14/23 BUN/Creatinine Ratio 14.4 (10-20) 11/14/23 Glu 123 mg/dl (70-99(Fasting)) H 11/14/23 Ca 8.5 mg/dl (8.6-10.3) L 11/14/23 Calcium Level 8.5 mg/dl (8.6-10.3) L 11/14/23 03:42 I & O Totals 24 Hours 11/13/23 11/14/23 11/15/23 06:59 06:59 06:59 Intake Total 100 / 100 100 / 100 Output Total 402 / 402 Balance 99 / 99 -302 / -302 Cumulative 11/12/23 09:02 thru 11/14/23 06:00 Intake Total 200 Output Total 403 Balance -203 RT Ventilator Mngmt (Last Documented) Ventilator Ordered Settings Respiratory Rate 20 11/14/23 08:12 Ventilator - PT Measurements Respiratory Rate 20 Coding Level of Care Code 70614 SUB INP/OBS CARE 04/23MIN Diagnoses ST elevation myocardial infarction involving right coronary artery I21.11 Involved coronary artery: right coronary artery Hx of bladder cancer Z85.51 Dyslipidemia E78.5 (1) STEMI (ST elevation myocardial infarction) Involved coronary artery: right coronary artery Qualified Code(s): I21.11 - ST elevation (STEMI) myocardial infarction involving right coronary artery
--- NOTE | 2023-11-14 08:32 | Electrocardiogram Report ---
Test Reason : Blood Pressure : */* mmHG Vent. Rate : 71 BPM Atrial Rate : 91 BPM P-R Int : * ms QRS Dur : 88 ms QT Int : 390 ms P-R-T Axes : * -27 -23 degrees QTcB Int : 423 ms Sinus rhythm with occasional Premature ventricular complexes and a 3-beat atrial run (mid-tracing) Recent Inferior infarct (cited on or before 12-Nov-2023) Abnormal ECG When compared with ECG of 12-Nov-2023 10:38, Serial changes of evolving Inferior infarct Confirmed by Patricio Bell ([id number]) on 11/14/2023 8:32:29 AM Referred By: REFERRED SELF Confirmed By: Patricio Bell
--- NOTE | 2023-11-14 08:34 | Electrocardiogram Report ---
Test Reason : Blood Pressure : */* mmHG Vent. Rate : 74 BPM Atrial Rate : 74 BPM P-R Int : 160 ms QRS Dur : 94 ms QT Int : 394 ms P-R-T Axes : * -30 -19 degrees QTcB Int : 437 ms Sinus rhythm with occasional Premature ventricular complexes and Premature atrial complexes Left axis deviation Recent Inferior infarct (cited on or before 12-Nov-2023) Abnormal ECG When compared with ECG of 13-Nov-2023 19:59, No significant change Confirmed by Patricio Bell ([id number]) on 11/14/2023 8:34:07 AM Referred By: REFERRED SELF Confirmed By: Patricio Bell
[2023-11-14] MEDS: LOSARTAN POTASSIUM 50 MG TAB PO SCH (08:51)
--- NOTE | 2023-11-14 13:28 | Cardiology Progress Note ---
Date of Service November 14, 2023 Assessment & Plan (1) CAD (coronary artery disease): Plan: -RCA STEMI post REGINE -Severe nonculprit LAD - post REGINE -Residual distal LAD wire dissection, moderate LCx disease 2. Preserved LV function 3. RT, LT forearm and RT groin hematoma 4. Hypertension 5. Dyslipidemia Stable from a cardiac standpoint. No chest pain, electrically stable, no signs of heart failure. Ecchymosis at his multiple access sites but no signs of significant complications. OK to transfer to telemetry today. -- Continue current DAPT with ASA/Ticagrelor -- Continue current losartan. Increase metoprolol as HR allows. -- Continue statin. -- Up walking in halls today. If stable overnight OK with discharge to home tomorrow. Follow-up with me or Dr. Harmon in 1-2 weeks. Admission and Anticipated Discharge Date Admission Date: November 12, 2023 Subjective Feeling well this morning. No recurrent chest pain. Telemetry reviewed -- no events Review of Systems Review of Systems: All systems reviewed & are unremarkable except as noted in HPI & below Physical Exam Physical Exam: General: Comfortable HEENT: Sclerae anicteric Lungs: Clear to auscultation anteriorly Cardiac: Regular rate and rhythm, no murmurs. Vascular: Ecchymosis RT forearm, 2+ radial pulse. LT forearm soft. 2+ radial pulse. Intact distal sensation cap refill Abdomen: Soft, nontender Extremities: Well perfused, no peripheral edema. Ecchymosis RT groin extending to scrotum with palpable hematoma, 1+ WEAVER DOBBY LOOM. RLE distal pulse/sensation intact Neuro: Nonfocal Psych: Alert orient x3, normal affect and mood Results & Data Vital Signs (Past 12 Hours) Vital Signs Temp Pulse Resp BP Pulse Ox O2 Del Method O2 Flow Rate 11/14/23 12:03 55 L 14 134/69 11/14/23 08:12 67 20 165/87 H 90 11/14/23 08:00 78 11/14/23 07:09 59 L 19 151/98 H 91 11/14/23 06:00 66 19 166/90 H 92 Nasal Cannula 2 11/14/23 05:00 74 16 145/72 H 94 Nasal Cannula 2 11/14/23 03:31 73 149/60 H 93 Nasal Cannula 2 11/14/23 03:01 70 170/84 H 91 Nasal Cannula 2 11/14/23 03:01 67 18 170/84 H 93 Nasal Cannula 2 11/14/23 02:31 62 22 157/85 H 94 Nasal Cannula 2 11/14/23 02:01 65 20 155/76 H 94 Nasal Cannula 2 11/14/23 01:33 98.1 F 68 18 162/56 H 94 Nasal Cannula 2 11/14/23 01:31 71 18 162/56 H 92 Room Air PG Care Time/CCT Total # of Minutes Spent Total Time Spent with Patient: Total time spent is greater than 50% in coordination of care (as documented) at patient's floor/unit and/or counseling patient: Coding Level of Care Code 99819 SUB INP/OBS CARE 3/50MIN Diagnoses CAD (coronary artery disease) I25.10
--- NOTE | 2023-11-14 17:22 | Billing Data ---
Date of Service November 14, 2023 Coding Level of Care Code 54321 SUB INP/OBS CARE MIN
--- NOTE | 2023-11-15 06:46 | Discharge Summary ---
Date of Service November 15, 2023 Admission HPI Per Admitting Provider Sarthak is a 73-year-old male with a past medical history of hypertension, hypothyroidism, urinary retention who presents to the ER with 2 hours of heaviness/pressure in his chest. Patient was taken emergently to cardiac Access Control Specialist. Per ER sign out intermittent pain onset at rest x1 day. Sarthak is seen at the bedside after transfer to the ICU postcatheterization. Per sign-out 1 stent to RCA 100% occluded. Coming back for planned PCI of LAD.. Bradycardic in the 50s, ST resolved. BP normal Held reports that he has not had any issues with chest pain in the preceding weeks or months up until yesterday evening. He reports he was walking when he developed discomfort in his mid upper abdomen/lower chest which felt more like gas and needing to burp, but without the ability to do so. Drink some Pepsi and think this got a little bit better, and went to bed but had a very poor night sleep and notes that he was much sweatier than normal. This morning when he was walking he had a feeling of again strong gas/indigestion with sweating but which radiated into his chest and presented to the ER for associated chest pressure. This has resolved postcatheterization. Heart rate has been low in the ER, he reports he has no history of bradycardia. Has a history of hypertension on hydrochlorothiazide/metoprolol/losartan Denies history of diabetes Denies prior heart attacks/HI Denies history of tobacco use. Denies alcohol use Medical History: Reviewed Medications: Reviewed Surgical History: Reviewed Family history: Reviewed Allergies: Reviewed Social History: NO tobacco/etoh Code Status: Full Admission Exam Per Admitting Provider General: A&Ox3. NAD. Cooperative. HEENT: Atraumatic, normocephalic. Vision and hearing grossly intact Pulm: CTAB A&P. -wheezes, -rales, -rhonchi. Symmetrical chest rise. No increased work of breathing. No respiratory distress. Cardiac: RRR, -mrg. Radial pulses intact and symmetrical. Abdominal: Nontender, nondistended, soft. BS present. Extremities: Right TR band in place. Sensation intact in all 5 right fingertips without deficit. No underlying wrist hematoma. Cap refill less than 2 seconds in the right thumb. Principal Diagnosis STEMI Discharge Exam General: A&Ox3. NAD. Cooperative. HEENT: Atraumatic, normocephalic. Vision and hearing grossly intact Pulm: CTAB A&P. -wheezes, -rales, -rhonchi. Symmetrical chest rise. No increased work of breathing. No respiratory distress. Cardiac: RRR, -mrg. Radial pulses intact and symmetrical. Abdominal: Nontender, nondistended, soft. BS present. Extremities: Sensation intact in all 5 right fingertips without deficit. No underlying wrist hematoma. Cap refill less than 2 seconds in the right thumb. procedure site at writs clean and no signs of infections or hematoma. Discharge Data Allergies Allergy/AdvReac Type Severity Reaction Status Date / Time No Known Drug Allergies Allergy Mild Verified 11/05/23 09:06 Consultations 11/12/23 09:30 ED Decision to Admit Stat 11/12/23 10:50 Consult Front Counter Clerk Routine Procedures Performed Operation Date: 11/13/23 14:30 Actual Procedures p Cineradiography w/Routine Exam(Left) - Familia Abraham MD p Drug Eluting Stent SGl Vessel - Familia Abraham MD s Placement Art Occlusive Device - Familia Abraham MD s Angio Extremity Unilateral - Familia Abraham MD Ordered Studies 11/12/23 09:15 CL Cath Imgs for PACS use only Stat 11/13/23 10:12 CL Cath Imgs for PACS use only Routine Hospital Course (1) STEMI (ST elevation myocardial infarction): Presented with chest pain and heaviness.EKG showed inferior lead ST elevations STEMI s/p PCI (11/11) and REGINE placement on to 100% occluded RCA. Then patient underwent a second a cath on 11/12 and had a stent placement in his 95% stenosed LAD, the Procedure was complicated by non-flow limiting wire dissection in small distal LAD. Pt had a total 2 stents placed on this admission.. - Echo 11/11: LVEF 60-65%, mild concentric LVH, mildly dilated RV, grade 2 diastolic dysfunction president of the [place] has recommended the addition of the following to his home regime. -continue DAPT: Brillianta 90mg BID and Aspirin 81mg daily. -continue Atorvastatin 80mg daily -Please Titrate metoprolol tartrate 12.5mg BID dose according to his HR response, currently bradycardic. -continue with rest of his home medication. (2) Lumbar disc herniation with radiculopathy: - No acute changes or complaints (3) Hx of bladder cancer: - Hx transitional cell carcinoma s/p resection 2016, 3 papillary tumors fulgurated in 2021 and 1 in 2022 (4) Dyslipidemia: - Atorvastatin 80 mg PO Qam (5) Hypertension: - Lopressor 12.5 mg PO BID, Losartan 25 mg PO Q12h (6) Hypothyroidism: - Synthroid 150 mcg PO daily Total Time Total Time Spent Total Time Spent (In Minutes): <30 Discharge Plan Discharge Items Patient Disposition: Home - Self-Care Reason For Visit: stemi Discharge Diagnosis: heart attack, coronary artery disease Activity: Resume your previous activity Non-emergency contact: Primary Care Provider and Systems Mgr Call non-emergency contact if: you have any medication questions, your symptoms worsen, your wound has increased redness, your wound has increased drainage and your wound pain has increased Follow-up/Referrals: Brittni De Luna MD [Primary Care Provider] - 11/18/23 11:30 am Diet: Heart Healthy Addtl Attending Provider Instructions: You were admitted to the hospital for a heart attack (also called a myocardial infarction.) You underwent a cardiac catheterization procedures and had 2 stent placed by our president of the [place]. Now, the important part is to continue the medications that cardiology recommend to protect the stent and prevent it from getting clogged, and to continue to be active and eat healthy. You should plan to do cardio exercises regularly (but as tolerated) to further strengthen the heart, and avoid fried, fatty, and processed foods. The president of the [place] has recommend you go home on the following medication regime: * Brilinta 90 mg twice daily for antiplatelet therapy to help stabilize the stent that was placed * Atorvastatin 80 mg daily, this is for stabilization of the stent that you have * Metoprolol tartrate 12.5mg BID daily and dosage needs to be adjusted later by your PCP. Please continue to take rest of your home medications Aspirin 81 mg daily, Amlodipine 10 mg once daily and Hydrochlorothiazide 25mg daily, Doxazocin 4mg daily, Losartan 100mg daily and Levothyroxine 150 mcg daily. Your Metoprolol succinate 500mg twice a day has been switched to Metoprolol tartrate 12.5mg twice a day and please continue this new dose and your PCP will adjust the dose based on your heart rate. Please do not stop any of these medications without talking to your primary care physician or president of the [place] first. Also let them know if you have any issues getting or affording any of these medications. Please plan to follow up with cardiology in 1-2 weeks. Plan to follow up with your primary care physician at the start of this upcoming week, Thursday or Thursday. You will have ot call their office Thursday to set up this appointment. Pending Studies at Discharge: No Stand-Alone Forms: My [facility] Mailpile, Smoking Cessation Medications and DC Order Prescriptions: New Brilinta 90 mg Tablet 90 mg PO BID 30 Days Qty: 60 1RF atorvastatin 40 mg Tablet 80 mg PO QAM 30 Days Qty: 60 1RF metoprolol tartrate 25 mg Tablet 12.5 mg PO BID 30 Days Qty: 30 1RF Continued losartan 100 mg tablet 100 mg PO QAM Qty: 90 3RF sildenafil 100 mg tablet 100 mg PO DAILY PRN (Reason: sexual activity) Qty: 10 3RF Rx Instructions: administer 30 minutes to 4 hours before activity hydrochlorothiazide 25 mg tablet 25 mg PO QAM Qty: 90 3RF potassium chloride 20 mEq tablet extended release 20 meq PO QAM Qty: 90 3RF levothyroxine 150 mcg tablet 150 mcg PO DAILY Qty: 90 1RF cholecalciferol (vitamin D3) 1,250 mcg (50,000 unit) tablet 1,250 mcg PO Q7D 70 Days Qty: 10 0RF doxazosin 4 mg tablet 4 mg PO DAILY Qty: 90 3RF amlodipine 10 mg tablet 10 mg PO DAILY Qty: 30 2RF multivitamin Tablet 1 tab PO QAM aspirin [Miguel Low Dose Aspirin] 81 mg Tablet,Delayed Release (Dr/Ec) 81 mg PO QAM flaxseed oil 1,000 mg Capsule 1,000 mg PO QAM Metamucil 3.4 gram/5.4 gram Powder 1 tsp PO QAM cranberry 1,000 mg Capsule 1,000 mg PO UD Rx Instructions: every other day PreserVision AREDS 4,296 mcg-226 mg-90 mg Capsule 1 cap PO BID Discontinued metoprolol succinate 50 mg tablet extended release 24 hr 50 mg PO BID Discharge Orders: Discharge Order (Routine); Ordered 11/15/23 Ordered By: Emily Sierra/Other Patient Handouts: Prediabetes, 5 Steps for Eating Healthier Admission Data Admit Date/Time: 11/12/23 09:33 Attending Provider: Igor Glasgow Admit Provider: Familia Abraham Primary Care Provider: Brittni De Luna Other Providers: Igor Glasgow; Guido Shook Other Interventions: Discharge Summary Assessment (RN) Last Done: 11/15/23 14:35 Supervising Physician Co-Signing Physician Notes I personally examined the patient and verified all alfredo points of history and exam, discussed case, and agree with decision making with Dr Diaz Feels good. Feels up to going home. Reiterated importance of lifestyle change as well as medication adherence. vitals noted nad heent nc at mmm breathing unlabored no accessory muscles good effort skin no rashes no pallor or icterus CAD - Status post interventions. Med management, lifestyle change. Safe/stable for home. Outpatient follow-up. otherwise as above
[2023-11-15 06:51] LABS: Basophils # (auto) 0.02 K/uL (0.00-0.20); Basophils % (auto) 0.3 %; Eosinophils # (auto) 0.15 K/uL (0.00-0.50); Eosinophils % (auto) 2.2 %; Hematocrit (blood only) 41.4 % (42.0-52.0); Hemoglobin 14.1 g/dl (14.0-18.0); Immature Granulocytes # (auto) 0.02 K/uL (0.01-0.20); Immature Granulocytes % (auto) 0.3 %; Lymphocytes # (auto) 1.33 K/uL (1.20-3.40); Lymphocytes % (auto) 19.3 %; Mean Corpuscular Hemoglobin 31.2 pg (25.0-34.0); Mean Corpuscular Hgb Conc 34.1 g/dL (32.0-36.0); Mean Corpuscular Volume 91.6 fL (80.0-100.0); Mean Platelet Volume 10.3 fL (9.4-12.4); Monocytes # (auto) 0.96 K/uL (0.11-0.59); Neutrophils % (auto) 63.9 %; Platelet Count 146 K/uL (130-400); RDW Coefficient of Variation 12.4 % (11.5-14.5); RDW Standard Deviation 41.5 fL (36.4-46.3); Red Blood Count 4.52 M/uL (4.70-6.10); White Blood Count 6.88 K/ul (4.8-10.8)
[2023-11-15 07:19] LABS: Calcium 8.4 mg/dl (8.6-10.3); Creatinine Clr Calc Pharmacy 88.7 ml/min; Est GFR (Non-African American) 73.3 ml/min; Potassium 3.5 mmol/L (3.5-5.1)
[2023-11-15 07:39] VITALS: RESP 20
[2023-11-15 11:27] VITALS: PULSE 56; TEMP 97.7; O2SAT 96
[2023-11-15 14:36] VITALS: BP 153/89
--- NOTE | 2023-11-15 16:11 | Billing Data ---
Date of Service November 15, 2023 Coding Level of Care Code 44150 IN/OBS DISCH 30 MIN/LESS
== END 2023-11-15 16:59 | disposition home or self-care (01) | DRG 322 ==
LOC: ED 09:02 → 1E 09:25 → CC 09:25 → 1E 09:33 → 2E 11-14 20:59
PROC: CLB.AEU (2023-11-13 14:30)

== ENCOUNTER 2024-09-30 10:51 | Observation (INO) ==
[2024-09-30 11:25] LABS: Hematocrit (blood only) 44.7 % (42.0-52.0); Hemoglobin 15.7 g/dl (14.0-18.0); Immature Granulocytes # (auto) 0.01 K/uL (0.01-0.20); Immature Granulocytes % (auto) 0.2 %; Mean Corpuscular Hemoglobin 31.5 pg (25.0-34.0); Mean Corpuscular Volume 89.6 fL (80.0-100.0); Platelet Count 114 K/uL (130-400); RDW Standard Deviation 41.8 fL (36.4-46.3); Red Blood Count 4.99 M/uL (4.70-6.10); White Blood Count 5.70 K/ul (4.8-10.8)
[2024-09-30] MEDS: ONDANSETRON INJ 2 MG/ML 2 ML VIAL ONE (11:30)
--- NOTE | 2024-09-30 11:32 | Emergency Department Note ---
Impression & Plan Nausea & vomiting, Hypoxia, Thrombocytopenia ED Provider Note NAME: CHARLIE SAENZ AGE: 74 SEX: Male INFORMANT: Patient ED PROVIDER(S): Cas Khan MD CHIEF COMPLAINT: Nausea and vomiting PLAN: Disposition: Admitted Outpatient prescription management: none Referral: None MEDICAL DECISION MAKING: Patient presented because of nausea. He was quite uncomfortable. Had a benign abdominal examination. He also noted chills feeling feverish. Patient underwent a workup. His CBC shows some new thrombocytopenia but no leukocytosis. Chemistry panel was unremarkable. Cardiac troponin was borderline elevated. ECG did not reveal any change compared to prior. Chest x- ray raise concern concerns about possible infiltrate although patient does not have a significant amount of pulmonary symptoms. Patient was noted to have borderline low oxygen levels at times but then dipped down transiently. He did well with supplemental nasal cannula oxygen. Given the constellation of flulike symptoms without pulmonary symptoms and the new thrombocytopenia did have concerns about anaplasmosis or tickborne infection. Labs were sent. Patient and I along with family discussed hospitalization. Patient in agreement. He was treated empirically with Rocephin and doxycycline. Consultation was made with Dr. Maxwell of the [facility] service. Patient was evaluated in the ER for further management. Care/management discussed with: manager utility, hospitalist Level of care consideration(s): After review of the information above and other included data, I feel the patient requires escalation of care to admission Triage Nursing notes: reviewed and agree them. Vital Signs: reviewed and remarkable for low oxygen Additional History obtained from: none Chronic Medical/Social Conditions affecting care: CAD Prior/ Outside/ External records reviewed: none Differential Diagnosis: Infection, dehydration, metabolic abnormality, hypo/hyperglycemia, electrolyte disturbance, anemia, hypoxia, cardiac sources, intracerebral event, toxicologic, neurologic, as well as other pathologies. Diagnostics, independently interpreted by me: EC-lead ECG was sinus rhythm PACs at 68 bpm. Inferior Q waves. When compared to ECG of 14 November 2023 there is no significant change. PVCs are no longer present. Cardiac Monitoring: Cardiac monitoring ordered by me: The patient was placed on continuous cardiac monitoring and observed. It revealed a normal sinus rhythm at 68 beats per minute without ectopy or evidence of dysrhythmia. Medical decision rules: none Imaging studies: Chest x-ray as above. HPI: 74 year old Male arrives for evaluation of nausea and vomiting. This started two days ago and is persisting. The patient also notes the following associated symptoms, lightheadedness, chills, fever, diaphoresis, headache yesterday. The patient has found no relieving factors. Current pain is rated as 0/10. No travel or sick contacts. Pt denies LOC, current headache, fevers, visual changes, neck pain, chest pain, breathing difficulties, abdominal pain, back pain, melena, hematochezia, urinary symptoms, numbness, weakness, lymphadenopathy, rash, or other complaints. PAST MEDICAL HISTORY: See Below, CAD PAST SURGICAL HISTORY: See Below, SOCIAL HISTORY: See Below, HOME MEDICATIONS: See Below ALLERGIES: See Below VITALS: See Below PHYSICAL EXAMINATION: GENERAL: Awake, alert, well-appearing, in no distress HENT: Normocephalic, atraumatic. Oropharynx unremarkable. EYES: Normal conjunctiva. Sclera non-icteric. NECK: Inspection normal. Non-tender. Supple. No nuchal rigidity. FROM. No masses. RESPIRATORY: Clear to auscultation. No wheezes. No rales. Normal respiratory effort. CARDIAC: Normal rate. Normal rhythm. No murmurs. No rubs. Extremities warm and well perfused. Pulses equal. No JVD. GI: Soft, non-distended. No tenderness to palpation. No rebound or guarding. No masses. RECTAL: Deferred. MUSCULOSKELETAL: Atraumatic. Chest examination reveals no tenderness. The back is symmetrical on inspection without obvious abnormality. There is no CVA tenderness to palpation. No joint edema. LOWER EXTREMITIES: Calves are equal size bilaterally and non-tender. No edema. No discoloration. NEURO: Normal sensorium. No sensory or motor deficits noted. SKIN: No rash or jaundice noted. PROCEDURES: none CRITICAL CARE: none OBSERVATION NOTE: none Past Med/Surg History Problem List (Updated 09/30/24 @ 18:37 by Cas Khan MD) Thrombocytopenia (Acute) Hypoxia (Acute) Nausea & vomiting (Acute) Vitamin D deficiency Hypothyroidism Painful total knee replacement Encounter for examination following treatment at hospital CAD (coronary artery disease) Chest pain (Acute) ST elevation MS (STEMI) (Acute) STEMI (ST elevation myocardial infarction) Fatigue Irregular heart beats Patient request for diagnostic testing Routine health maintenance ED (erectile dysfunction) Low back pain radiating to right leg Lumbar disc herniation with radiculopathy Myofascial pain Lumbar pain with radiation down right leg Right hip pain Lumbar spondylosis Urinary retention Chronic knee pain after total replacement of both knee joints Encounter for pre-operative examination Plantar fascia syndrome Calcium nephrolithiasis 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 Abnormal EKG (Acute) Dyslipidemia Diet controlled - no meds H/O esophageal reflux (Acute) no problems currently Hyperglycemia (Acute) Hypertension Nocturia (Acute) Hx of bladder cancer S/P POLYPECTOMY (TESTED + FOR CANCER ON BIOPSY) - NO CHEMO OR XRT/BCG TREATMENT Medical History Lumbar disc herniation with radiculopathy Hx of esophageal reflux Dyslipidemia Hypertension Hx of bladder cancer Hx of renal calculi Osteoarthritis Hearing loss Obesity Surgical History S/P epidural steroid injection (07/2020) History of bilateral knee replacement History of transurethral resection of prostate History of blepharoplasty (02/13/12) History of colonoscopy Hx of tonsillectomy History of surgery (1959) Hx of appendectomy Family History Mother Family history of diabetes mellitus Hypertension Father Hypertension Myocardial infarction Other No family history of adverse response to anesthesia Denies family history of Ovarian cancer Prostate cancer Breast cancer Colorectal cancer Social History Smoking Status: Never smoker Tobacco Type: Cigarettes and Smokeless Tobacco (Dip or Chew) Age Started Using Tobacco: 15; Age Quit Using Tobacco: 25; packs per day: 0.5; Second Hand Exposure: No; Do You Dip or Chew Tobacco: No; Tobacco Cessation Education Requested by Patient: No Hx Alcohol Use: No Hx Substance Use: No Preferred Language: Nepali Communication Ability: Effective Visual Impairment: Limited Hearing Ability: Normal Lead Sql Developer Required: No Beliefs That Will Affect Care: None marital status: Current Living Situation: Spouse current occupational status: employed 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 How many Children do You have: 3 Other Information That Helps Us Care for You: No Feels Safe at Home: Yes Safety Concerns: Feels Safe At This Time Childhood Exposure to Second-Hand Smoke: Yes Diet: regular caffeine: Yes during the past year weight has: remained stable Dental Care, Regularly: Yes Physical Activity Frequency: Daily Seatbelt Use: always Sunscreen Use: Yes Do you think of yourself as: straight/heterosexual Sexual Activity: has been sexually active within the last 12 months Gender Identity: Male Assistive Devices: Denture - Lower and Glasses Allergies Allergies Allergy/AdvReac Type Severity Reaction Status Date / Time No Known Drug Allergies Allergy Mild Verified 09/09/24 09:32 Home Meds Home Medications Medication Instructions Recorded Confirmed aspirin 81 mg tablet,delayed 81 mg PO QAM 09/27/18 09/30/24 release (Miguel Low Dose Aspirin) psyllium husk 3.4 gram/5.4 gram 1 tsp PO QAM 09/27/18 09/30/24 oral powder (Metamucil) cranberry fruit 1,000 mg capsule 1,000 mg PO UD 03/21/20 09/30/24 vitamins A,C,X-ejye-offrps 4,296 1 cap PO BID 09/22/23 09/30/24 mcg-226 mg-90 mg capsule (PreserVision AREDS) propylene glycol 0.6 % eye drops 1 drp ophthalmic (eye) DAILY PRN 02/01/24 09/30/24 (Systane Balance) Dry Eyes Previous Rx's Medication Instructions Recorded hydrochlorothiazide 25 mg tablet 25 mg PO QAM #90 tabs 09/15/23 potassium chloride 20 mEq 20 meq PO QAM #90 tabs 09/22/23 tablet,extended release doxazosin 4 mg tablet 4 mg PO DAILY #90 tabs 11/05/23 tadalafil 20 mg tablet 20 mg PO DAILY #30 tabs 03/09/24 losartan 100 mg tablet 100 mg PO QAM #90 tabs 03/11/24 levothyroxine 150 mcg tablet 150 mcg PO DAILY #90 tabs 04/15/24 cholecalciferol (vitamin D3) 1,250 50,000 unit PO .COMPLEX #10 caps 07/21/24 mcg (50,000 unit) capsule tirzepatide 5 mg/0.5 mL 5 mg (0.5 mL) subcut Q7D #6 mL 09/06/24 subcutaneous pen injector amlodipine 10 mg tablet 10 mg PO DAILY #90 tabs 09/08/24 atorvastatin 20 mg tablet 20 mg PO QAM 90 days #90 tabs 09/10/24 sildenafil 100 mg tablet 100 mg PO DAILY PRN sexual 09/24/24 activity #10 tabs Results & Data (ED) Vital Signs Vital Signs - 24 hr 09/30/24 10:54 09/30/24 11:11 09/30/24 11:12 Temperature 36.8 C Temperature Source Temporal Artery Scan Pulse Rate 69 68 Pulse Rate [Finger] 68 Pulse Rate from SpO2 Sensor 67 Pulse Rhythm [Finger] Regular Pulse Strength [Finger] Normal Respiratory Rate 18 19 24 Respiratory Effort / Characteristics Non-Labored Spontaneous Non-Labored Respiratory Depth Normal Normal Respiratory Pattern Regular Blood Pressure 175/82 H Blood Pressure [Right Arm] 169/78 H Blood Pressure Mean 113 Blood Pressure Mean [Right Arm] 108 Pulse Oximetry 93 94 92 Oxygen Delivery Method Room Air Room Air Room Air Oxygen Flow Rate Sepsis Recent Fever Within 48 Hours No Sepsis New/Unexplained Change in Mental Status N/A Sepsis Action Taken by Nursing No Action Required 09/30/24 11:18 09/30/24 12:06 09/30/24 12:42 Temperature Temperature Source Pulse Rate 65 64 73 Pulse Rate [Finger] Pulse Rate from SpO2 Sensor 64 Pulse Rhythm [Finger] Pulse Strength [Finger] Respiratory Rate 22 Respiratory Effort / Characteristics Respiratory Depth Respiratory Pattern Blood Pressure Blood Pressure [Right Arm] Blood Pressure Mean Blood Pressure Mean [Right Arm] Pulse Oximetry 89 L 93 Oxygen Delivery Method Room Air Nasal Cannula Oxygen Flow Rate 2 Sepsis Recent Fever Within 48 Hours Sepsis New/Unexplained Change in Mental Status Sepsis Action Taken by Nursing 09/30/24 12:45 09/30/24 13:00 09/30/24 13:00 Temperature 37.7 C H 36.7 C Temperature Source Oral Oral Pulse Rate 68 Pulse Rate [Finger] 69 Pulse Rate from SpO2 Sensor 68 Pulse Rhythm [Finger] Regular Pulse Strength [Finger] Normal Respiratory Rate 18 18 Respiratory Effort / Characteristics Non-Labored Respiratory Depth Normal Respiratory Pattern Regular Blood Pressure 140/91 Blood Pressure [Right Arm] 140/91 Blood Pressure Mean 122 Blood Pressure Mean [Right Arm] 107 Pulse Oximetry 94 Oxygen Delivery Method Nasal Cannula Oxygen Flow Rate 2 Sepsis Recent Fever Within 48 Hours Sepsis New/Unexplained Change in Mental Status Sepsis Action Taken by Nursing Laboratory Data 09/30/24 11:09 09/30/24 11:09 Lab Results 09/30/24 09/30/24 Range/Units 11:09 11:47 WBC 5.70 (4.8-10.8) K/ul RBC 4.99 (4.70-6.10) M/uL Hgb 15.7 (14.0-18.0) g/dl Hct 44.7 (42.0-52.0) % MCV 89.6 (80.0-100.0) fL MCH 31.5 (25.0-34.0) pg MCHC 35.1 (32.0-36.0) g/dL RDW Std Deviation 41.8 (36.4-46.3) fL RDW Coeff of Zuleika 12.7 (11.5-14.5) % Plt Count 114 L (130-400) K/uL MPV 10.2 (9.4-12.4) fL Immature Gran % (Auto) 0.2 % Neut % (Auto) 82.3 % Lymph % (Auto) 7.5 % Starke % (Auto) 9.6 % Eos % (Auto) 0.0 % Baso % (Auto) 0.4 % Neut # (Auto) 4.69 (1.40-6.50) K/uL Lymph # (Auto) 0.43 L (1.20-3.40) K/uL Starke # (Auto) 0.55 (0.11-0.59) K/uL Eos # (Auto) 0.00 (0.00-0.50) K/uL Baso # (Auto) 0.02 (0.00-0.20) K/uL Immature Gran # (Auto) 0.01 (0.01-0.20) K/uL Sodium 136 (136-145) mmol/L Potassium 3.1 L (3.5-5.1) mmol/L Chloride 100 (98-107) mmol/L Carbon Dioxide 27 (21-32) mmol/L Anion Gap 9 (3-11) BUN 13 (6-23) mg/dl Creatinine 1.16 (0.6-1.4) mg/dl Est Cr Clr Drug Dosing 75.8 ml/min eGFR 65.28 BUN/Creatinine Ratio 11.2 (10-20) Glucose 169 H (70-99(Fasting)) mg/dl Calcium 8.8 (8.6-10.3) mg/dl Magnesium 1.8 (1.7-2.4) mg/dl Total Bilirubin 0.8 (0.2-1.0) mg/dl AST 21 (13-39) U/L ALT 23 (7-52) U/L Alkaline Phosphatase 47 (34-104) U/L Troponin I High Sens 34.3 H (0-20) pg/ml Total Protein 6.8 (6.0-8.3) gm/dl Albumin 4.2 (3.4-5.0) gm/dl Globulin 2.6 (2.5-4.0) gm/dl Albumin/Globulin Ratio 1.6 (0.9-2) Lipase 38 (11-82) U/L TSH 1.223 (0.300-4.500) uIu/ml Anaplasma Smear See Comment Babesia Smear See Comment Lyme Disease Screen Negative (Negative) Administered Medications Discontinued Medications Acetaminophen (Acetaminophen 500 Mg Tab) 1,000 mg PO NOW STA Stop: 09/30/24 12:47 Last Admin: 09/30/24 13:32 Dose: 1,000 mg Documented By: LUISANA Amlodipine Besylate (Amlodipine Besylate 5 Mg Tab) 10 mg PO ONE ONE Stop: 09/30/24 13:46 Last Admin: 09/30/24 14:08 Dose: 10 mg Documented By: CARLINE Doxazosin Mesylate (Doxazosin Mesylate 4 Mg Tab) 4 mg PO ONE ONE Stop: 09/30/24 13:46 Last Admin: 09/30/24 13:59 Dose: 4 mg Documented By: CARLINE Ceftriaxone Sodium (Rocephin) 2,000 mg in 50 mls @ 100 mls/hr IV NOW STA Stop: 09/30/24 13:15 Last Infusion: 09/30/24 16:11 Dose: Infused Documented By: Admin: 09/30/24 13:32 Dose: 100 mls/hr Documented By: LUISANA Doxycycline Hyclate 100 mg/ (Dextrose) 100 mls @ 50 mls/hr IV NOW STA Stop: 09/30/24 14:45 Last Infusion: 09/30/24 16:12 Dose: Infused Documented By: Admin: 09/30/24 13:33 Dose: 50 mls/hr Documented By: LUISANA Levothyroxine Sodium (Levothyroxine Sodium 150 Mcg Tablet) 150 mcg PO DAILY RASHAD Stop: 10/30/24 13:29 Last Admin: 09/30/24 14:47 Dose: Not Given Documented By: LUISANA Losartan Potassium (Losartan Potassium 50 Mg Tab) 100 mg PO ONE ONE Stop: 09/30/24 13:46 Last Admin: 09/30/24 14:00 Dose: 100 mg Documented By: CARLINE Ondansetron HCl (Ondansetron Inj 2 Mg/Ml 2 Ml Vial) Confirm Administered Dose 4 mg .ROUTE .STK-MED ONE Stop: 09/30/24 11:31 Last Admin: 09/30/24 11:30 Dose: 4 mg Documented By: CARLINE Ondansetron HCl (Ondansetron Inj 2 Mg/Ml 2 Ml Vial) 4 mg IV NOW STA Stop: 09/30/24 11:54 Last Admin: 09/30/24 11:57 Dose: Not Given Documented By: CARLINE Potassium Chloride (Potassium Chloride Crtab 20 Meq Tabcr) 40 meq PO NOW STA Stop: 09/30/24 13:21 Last Admin: 09/30/24 14:09 Dose: 40 meq Documented By: CARLINE Potassium Chloride (Potassium Chloride Crtab 20 Meq Tabcr) 40 meq PO ONE ONE Stop: 09/30/24 15:21 Last Admin: 09/30/24 15:12 Dose: 40 meq Documented By: CARLINE Imaging Data Radiologist's Impression: Chest X-Ray 09/30/24 11:39 HISTORY: Nausea and vomiting. TECHNIQUE: Portable AP radiograph of the chest. COMPARISON: Chest radiograph dated 10/04/2018. FINDINGS: Cardiomegaly pulmonary vascular congestion. Left lower lung/retrocardiac opacity. Mild right basilar opacity. No pneumothorax or definite effusion. Left-sided aortic arch. Midline trachea. No acute osseous abnormality. IMPRESSION: * Left lung base/retrocardiac airspace opacity is nonspecific and could represent atelectasis or pneumonia. * Mild right basilar opacity favoring atelectasis. * Cardiomegaly and mild vascular congestion. Electronically signed by Cas Livingston 09-30-2024 12:04 PM Discharge Plan Visit Data Chief Complaint: Cardiac Assessment Stated Complaint: VOMITING,NAUSEA,HEADACHE,UNWELL,HEART PROB IN PAST ED Provider: Cas Khan Discharge Problem: Nausea & vomiting, Hypoxia, Thrombocytopenia Patient Disposition: Admitted As Inpatient Condition: Good Discharge Instructions Interventions: ED Discharge Assessment Last Done: 09/30/24 15:21
[2024-09-30 11:41] LABS: Alanine Aminotransferase 23.0 U/L (7-52); Albumin Globulin Ratio 1.6 (0.9-2); Alkaline Phosphatase 47.0 U/L (34-104); Anion Gap 9.0 (3-11); Bilirubin,Total 0.8 mg/dl (0.2-1.0); Blood Urea Nitrogen 13.0 mg/dl (6-23); Calcium 8.8 mg/dl (8.6-10.3); Carbon Dioxide 27.0 mmol/L (21-32); Chloride 100.0 mmol/L (98-107); Creatinine Clr Calc Pharmacy 75.8 ml/min; Globulin 2.6 gm/dl (2.5-4.0); Glucose 169.0 mg/dl (70-99(Fasting)); Lipase 38.0 U/L (11-82); Magnesium 1.8 mg/dl (1.7-2.4); Potassium 3.1 mmol/L (3.5-5.1); Sodium 136.0 mmol/L (136-145); Total Protein 6.8 gm/dl (6.0-8.3)
[2024-09-30] MEDS: ONDANSETRON INJ 2 MG/ML 2 ML VIAL IV STA (11:57)
--- NOTE | 2024-09-30 12:04 | XRay Report ---
HISTORY: Nausea and vomiting. TECHNIQUE: Portable AP radiograph of the chest. COMPARISON: Chest radiograph dated 10/04/2018. FINDINGS: Cardiomegaly pulmonary vascular congestion. Left lower lung/retrocardiac opacity. Mild right basilar opacity. No pneumothorax or definite effusion. Left-sided aortic arch. Midline trachea. No acute osseous abnormality. IMPRESSION: * Left lung base/retrocardiac airspace opacity is nonspecific and could represent atelectasis or pneumonia. * Mild right basilar opacity favoring atelectasis. * Cardiomegaly and mild vascular congestion. Electronically signed by Cas Livingston 09-30-2024 12:04 PM
[2024-09-30] MEDS ORDERED: ACETAMINOPHEN 325 MG TAB PO PRN (13:17)
[2024-09-30] MEDS: ACETAMINOPHEN 500 MG TAB PO STA (13:32)
[2024-09-30] MEDS: cefTRIAXone SODIUM 2,000 MG/50 ML BAG IV STA (13:32)
[2024-09-30] MEDS: DOXYCYCLINE HYCLATE 100 MG in DEXTROSE 5% MINI-B 100 ML IV STA (13:33)
[2024-09-30] MEDS: LOSARTAN POTASSIUM 50 MG TAB PO ONE (14:00)
[2024-09-30] MEDS: POTASSIUM CHLORIDE CRTAB 20 MEQ TABCR PO STA ×2 (14:09→19:46)
[2024-09-30 14:10] LABS: Creatine Kinase 124.0 U/L (30-223)
[2024-09-30 14:23] LABS: Thyroid Stimulating Hormone 1.223 uIu/ml (0.300-4.500)
[2024-09-30] MEDS: LEVOTHYROXINE SODIUM 150 MCG TABLET PO SCH (14:47)
[2024-09-30 14:59] LABS: Chlamydia pneumoniae PCR Not Detected (NotDetected); Coronavirus 229E PCR Not Detected (NotDetected); Coronavirus CoV-2 (COVID19)PCR Not Detected (NotDetected); Coronavirus HKU1 PCR Not Detected (NotDetected); Coronavirus NL63 PCR Not Detected (NotDetected); Coronavirus OC43PCR Not Detected (NotDetected); Human Metapneumovirus PCR Not Detected (NotDetected); Parainfluenza Virus 1 PCR Not Detected (NotDetected); Parainfluenza Virus 2 PCR Not Detected (NotDetected); Parainfluenza Virus 3 PCR Not Detected (NotDetected); Parainfluenza Virus 4 PCR Not Detected (NotDetected); Respiratory Syncytial VirusPCR Not Detected (NotDetected); Rhinovirus/Enterovirus PCR Not Detected (NotDetected)
[2024-09-30] MEDS: POTASSIUM CHLORIDE CRTAB 20 MEQ TABCR PO ONE ×2 (15:12→21:23)
[2024-09-30 15:47] LABS: Appearance Urine Clear (Clear); Bacteria Urine Automated None Seen (None Seen); Epithelial Cell Urine Auto 0-2 /hpf (0-2); Glucose Urine UA Negative (Negative); RBC Urine Automated 0-2 /hpf (0-2); WBC Urine Automated 0-5 /hpf (0-5)
[2024-09-30] MEDS: OPTIRAY 320 125ml IV ONE (18:51)
--- NOTE | 2024-09-30 18:54 | History & Physical Report ---
Date of Service September 30, 2024 Assessment & Plan (1) Acute hypoxic respiratory failure: Plan: As above in the History of Present Illness. (2) Acute hypokalemia: Plan: As above in the History of Present Illness. (3) Thrombocytopenia: Plan: As above in the History of Present Illness. (4) Monocytosis: Plan: As above in the History of Present Illness. (5) Demand ischemia: Plan: As above in the History of Present Illness. Admission and Anticipated Discharge Date Admission Date: September 30, 2024 History of Present Illness Chief Complaint: "For the past 2 weeks, I have been feeling run-down, worn-out, and weak, no energy. Also, I've been feeling nauseated and vomiting, no bile and no blood, no diarrhea or belly pain. Sometimes, I felt chilly, but no fevers or sweating. Then on Thursday (09/28/2024), I felt muscle aches all over, and by the end of the day, the muscle aches were gone. 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 My wanted me to get myself checked out, because this is how I felt when I had my heart attack on 11/12/2023. No chest pain at all." Primary Care Provider: Brittni De Luna MD 74 years old male with PMH of FULL CODE @ home, morbid obesity with BMI 41.7 (height 180.3 cm; weight 135.6 kg), hypothyroidism with TSH 1.223 uIU/mL (09/30/2024, 11:09am) on synthroid 100ug PO daily, non-insulin dependent DM2 with HbA1c 6.3% (07/21/2024, 8:58am) on tirzepatide (Mounjaro) 5mg SQ q7 days for the past 2 months, former tobacco abuse with no subsequent diagnosis of COPD, not on home O2 or home steroids, bladder CA, s/p TURBT #1 (12/02/2016, 1:41pm, [facility] Urologist Dr. Familia Vance), s/p TURBT #2 (10/28/2018, 10:13am, [facility] Urologist Dr. 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 Familia Vance), BPH s/p TURP #1 (12/02/2016, 1:41pm, [facility] Urologist Dr. Familia Vance), s/p TURP #2 (10/28/2018, 10:13am, [facility] Urologist Dr. Familia Vance), now on doxazosin 4mg PO daily, peripheral monocytosis with historical M% range, 13.2% (11/12/2023, time ?) to 15.4% (11/13/2023, 3:55am) to 16.6% (11/13/2024, 3:42am) to 14.0% (11/15/2023, 6:34am), coinciding with acute inferior wall STEMI and elevated troponins: cf., troponin-I #1 5,378.3 pg/mL (11/12/2023, 11:20am). cf., troponin-I #2 150.5 pg/mL (11/12/2023, time ?). cf., troponin-I #3 17,682.8 pg/mL (11/13/2023, 12:25am). cf., troponin-I #4 13,769.7 pg/mL (11/13/2023, 3:55am). HTN on amlodipine 10mg PO daily and HCTZ 25mg PO daily, and CAD, s/p inferior wall STEMI, s/p REGINE to distal RCA (11/13/2023, 6:46pm, [facility] CARDS Dr. Familia Abraham), severe, non-culprit LAD, s/p staged REGINE (11/13/2023, 6:46pm, [facility] CARDS Dr. Familia Abraham), residual distal LAD wire dissection, moderate LCx disease, procedures complicated by right forearm/left forearm hematomas, and right groin hematoma (11/13/2023, 6:46pm, [facility] CARDS Dr. Familia Abraham), now on ASA 81mg PO daily and atorvastatin 20mg PO qam, who reports: "For the past 2 weeks, I have been feeling run-down, worn-out, and weak, no energy. Also, I've been feeling nauseated and vomiting, no bile and no blood, no diarrhea or belly pain. Sometimes, I felt chilly, but no fevers or sweating. Then on Thursday (09/28/2024), I felt muscle aches all over, and by the end of the day, the muscle aches were gone. 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 My wanted me to get myself checked out, because this is how I felt when I had my heart attack on 11/12/2023. No chest pain at all." Patient denies antecedent/coincident shortness of breath, cough, wheeze, sore throat, hemoptysis, chest pains, palpitations, pleurisy, diarrhea, abdominal pain, pelvic pain, hematemesis, hematochezia, melena, hematuria, dysuria, frequency, urgency, headaches, dizziness, lightheadedness, visual changes, hearing changes, weakness, falls, syncope, trauma, travel history, sick contacts, or food/drug ingestions novel or new. All other review of systems are reported as negative by the patient on observation date 09/30/2024. In [facility] ER bed #A10, patient was afebrile @36.8 degrees Celsius, HR 69, RR 18, O2 sat 93% on room air, and BP 175/82 (09/30/2024, 10:54am). cf., repeat O2 sat 89% on room air (09/30/2024, 12:06pm). Exam was noted for a clear and non-tender chest. Labs in [facility] ER bed #A10 included: Na 136, K 3.1, BUN 13, creatinine 1.16, glucose 169, CO2 27, Ca 8.8, Mg 1.8, AST 21, ALT 23, ALK PHOS 47, TBili 0.8 (09/30/2024, 11:09am). K 2.5 (09/30/2024, 6:07pm). WBC 5.70, N82 L8 M10, Hb 15.7, MCV 89.6, MCHC 35.1, platelet 114 (09/30/2024, 3:25pm). U/A: clear yellow, LE-, nitrite trace, ketones trace, blood trace, RBC 0-2, WBC 0-5, epithelial cells 0-2, bacteria 0 (09/30/2024, 3:25pm). Lactate #1 1.1 mmol/L (09/30/2024, 1:39pm). Lactate #2 (09/30/2024, 5:39pm). Procalcitonin #1 0.19 ng/mL (09/30/2024, 1:39pm). MRSA nares PCR- (09/30/2024, 1:49pm). BIOFIRE respiratory PCR panel - (09/30/2024, 1:49pm). Anaplasma smear negative for intracytoplasmic neutrophilic inclusions (09/30/2024, 11:47am). Anaplasma DNA (09/30/2024, 11:47am). Babesia smear negative for intra-RBC inclusions (09/30/2024, 11:47am). Babesia DN (09/30/2024, 11:47am). Lyme disease screen negative (09/30/2024, 11:47am). Blood culture (09/30/2024, 1:20pm): Lipase 38 U/L (09/30/2024, 11:09am). TSH 1.223 uIU/mL (09/30/2024, 11:09am). CK 124 U/L (09/30/2024, 1:20pm). Troponin-I #1 34.3 pg/mL (09/30/2024, 11:09am). Troponin-I #2 38.9 pg/mL (09/30/2024, 1:20pm). Troponin-I #3 35.4 pg/mL (09/30/2024, 2:39pm). Troponin-I #4 23.7 pg/mL (09/30/2024, 6:07pm). Additional testing in [facility] ER bed #A10 included: Portable CXR (09/30/2024, 11:39am): 1. Cardiomegaly with LLL atelectasis. No infiltrate, effusion, pulmonary vascular congestion, or pneumothorax. (by my review). CTA chest (09/30/2024, 5:49pm): 1. No definite sign of pulmonary embolism 2. No pneumonia. 3. No effusion. 4. Unchanged right lower lobe nodules, benign given the long-term stability. 5. Mild LLL atelectasis. EKG (09/30/2024, 11:00am): NSR @ 68, CA 176, QTC 399, q in III, no acute ST depressions/elevations (by my review). Patient was subsequently placed in OBSERVATION on the hospitalist service @ [facility] on 09/30/2024 with the following diagnoses: 1. Acute hypoxic respiratory failure with repeat O2 sat 89% on room air (09/30/2024, 12:06pm), of unclear etiology, but probably due to hypoventilation, due to presumed obesity hypoventilation syndrome with morbid obesity with BMI 41.7 (height 180.3 cm; weight 135.6 kg), leading to acute/mild LLL atelectasis (as noted on 09/30/2024, 11:39am portable CXR; as noted on 09/30/2024, 5:49pm CTA chest). 2. Acute hypokalemia with admission K 3.1 mmol/L (09/30/2024, 11:09am), most probably due to home-scheduled HCTZ 25mg PO daily with HCTZ-mediated nicole- uresis. 3. Acute thrombocytopenia with admission platelet count 114 (09/30/2024, 3:25pm), most probably due to home-scheduled HCTZ 25mg PO daily and tirzepatide 5mg SQ q7 days (started 2 months ago). 4. Acute peripheral monocytosis with admission M% 10% (09/30/2024, 3:25pm), most probably due to acute (echo)viral syndrome, R/O human monocytic Erhlichiosis, R/O human granulocytic Anaplasmosis, R/O babesiosis. 5. Acute type II NSTEMI with admission troponin-I #1 34.3 pg/mL (09/30/2024, 11:09am), most probably due to demand ischemia, which in turn, is due to acute hypoxic respiratory failure. To address #1, patient was started on incentive spirometry q4h while awake, in order to open up the atelectatic airways and thereby improve oxygenation. Of note, patient is not coughing or wheezing or reporting any SOB/MARX at all, to warrant pharmacologic intervention with steroids or nebulizer treatments of any kind on observation date 09/30/2024. To address #2, patient is being held OFF his home-scheduled HCTZ 25mg PO daily while in [facility]. Patient already received supplementation with KCl 40meq PO bid x 2 doses (09/30/2024, 2:09pm, 3:12pm), but acute hypokalemia PERSISTS with post-supplement K 2.5 mmol/L (09/30/2024, 6:07pm). Patient subsequently will receive KCl 40meq PO bid x 2 doses (09/30/2024, 7:27pm, 9:27pm), and will undergo repeat K level testing on 10/01/2024 am. To address #3, patient is being held OFF his home-scheduled HCTZ 25mg PO daily while in [facility]. Patient is also being held OFF his home- scheduled tirzepatide 5mg SQ q7 days while in [facility]. I will check repeat platelet count in the 10/01/2024 am. To address #4, patient received ceftriaxone 2g IV x 1 dose (09/30/2024, 1:32pm) and doxycycline 100mg IV x 1 dose (09/30/2024, 1:33pm) in [facility] ER bed #A10. 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 Jonathon santiago, preliminary results of Giemsa-stained blood smears for human granulocytic Anaplasmosis and babesiosis are negative for intracellular inclusions, which are the sine aleah non of infection with this gram negative bacillus and this parasite, respectively. In addition, this patient's procalcitonin level is negative/normal at 0.19 ng/mL (09/30/2024, 1:39pm); in contrast, infection with either Anaplasma phagocytophilus or Ehrlichia chaffeensis, the causative agents for human granulocytic Anaplasmosis and human monocytic Ehrlichiosis, respectively, correlate with procalcitonin levels typically in the single-double digit range. Hence, I have opted not to continue empirically with doxycycline. I have also opted not to continue empirically with ceftriaxone. I have also opted not to start this patient empirically on atovaquone and azithromycin (e.g., empiric treatment for babesiosis). To address #5, patient is being observed on telemetry overnight for possible arrhythmias; the nominal troponin-I elevations noted above have already peaked with troponin-I #2 38.9 pg/mL (09/30/2024, 1:20pm), and have already trended down close to normal: cf., Troponin-I #3 35.4 pg/mL (09/30/2024, 2:39pm). cf., Troponin-I #4 23.7 pg/mL (09/30/2024, 6:07pm). Hence, I have opted to observe this laboratory anomaly without further evaluation or intervention while patient remains in [facility]. Allergies Allergy/AdvReac Type Severity Reaction Status Date / Time No Known Drug Allergies Allergy Mild Verified 09/09/24 09:32 Home Medications Medication Instructions Recorded Confirmed Type aspirin 81 mg tablet,delayed 81 mg PO QAM 09/27/18 09/30/24 History release (Miguel Low Dose Aspirin) psyllium husk 3.4 gram/5.4 gram 1 tsp PO QAM 09/27/18 09/30/24 History oral powder (Metamucil) cranberry fruit 1,000 mg capsule 1,000 mg PO UD 03/21/20 09/30/24 History hydrochlorothiazide 25 mg tablet 25 mg PO QAM #90 tabs 09/15/23 09/30/24 Rx potassium chloride 20 mEq 20 meq PO QAM #90 tabs 09/22/23 09/30/24 Rx tablet,extended release vitamins A,C,Q-fjal-ejgrqp 4,296 1 cap PO BID 09/22/23 09/30/24 History mcg-226 mg-90 mg capsule (PreserVision AREDS) doxazosin 4 mg tablet 4 mg PO DAILY #90 tabs 11/05/23 09/30/24 Rx propylene glycol 0.6 % eye drops 1 drp ophthalmic (eye) DAILY PRN 02/01/24 09/30/24 History (Systane Balance) Dry Eyes tadalafil 20 mg tablet 20 mg PO DAILY #30 tabs 03/09/24 09/30/24 Rx losartan 100 mg tablet 100 mg PO QAM #90 tabs 03/11/24 09/30/24 Rx levothyroxine 150 mcg tablet 150 mcg PO DAILY #90 tabs 04/15/24 09/30/24 Rx cholecalciferol (vitamin D3) 1,250 50,000 unit PO .COMPLEX #10 caps 07/21/24 09/30/24 Rx mcg (50,000 unit) capsule tirzepatide 5 mg/0.5 mL 5 mg (0.5 mL) subcut Q7D #6 mL 09/06/24 09/30/24 Rx subcutaneous pen injector amlodipine 10 mg tablet 10 mg PO DAILY #90 tabs 09/08/24 09/30/24 Rx atorvastatin 20 mg tablet 20 mg PO QAM 90 days #90 tabs 09/10/24 09/30/24 Rx sildenafil 100 mg tablet 100 mg PO DAILY PRN sexual 09/24/24 09/30/24 Rx activity #10 tabs Past Med/Surg History Problem List (Updated 09/30/24 @ 20:27 by Andrew Szymanski MD, PhD) Demand ischemia Monocytosis Thrombocytopenia Acute hypokalemia Acute hypoxic respiratory failure Thrombocytopenia (Acute) Hypoxia (Acute) Nausea & vomiting (Acute) Vitamin D deficiency Hypothyroidism Painful total knee replacement Encounter for examination following treatment at hospital CAD (coronary artery disease) Chest pain (Acute) ST elevation TN (STEMI) (Acute) STEMI (ST elevation myocardial infarction) Fatigue Irregular heart beats Patient request for diagnostic testing Routine health maintenance ED (erectile dysfunction) Low back pain radiating to right leg Lumbar disc herniation with radiculopathy Myofascial pain Lumbar pain with radiation down right leg Right hip pain Lumbar spondylosis Urinary retention Chronic knee pain after total replacement of both knee joints Encounter for pre-operative examination Plantar fascia syndrome Calcium nephrolithiasis 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 Abnormal EKG (Acute) Dyslipidemia Diet controlled - no meds H/O esophageal reflux (Acute) no problems currently Hyperglycemia (Acute) Hypertension Nocturia (Acute) Hx of bladder cancer S/P POLYPECTOMY (TESTED + FOR CANCER ON BIOPSY) - NO CHEMO OR XRT/BCG TREATMENT Medical History Lumbar disc herniation with radiculopathy Hx of esophageal reflux no current issues Dyslipidemia Hypertension Hx of bladder cancer s/p polpectomy, no chemo or XRT/ BCG tx Hx of renal calculi Osteoarthritis Hearing loss Obesity Surgical History S/P epidural steroid injection (07/2020) History of bilateral knee replacement x 2 History of transurethral resection of prostate x 2 + TURBT= 12/02/1610/2018- TURP /T History of blepharoplasty (02/13/12) History of colonoscopy Hx of tonsillectomy History of surgery (1959) arms/wrists/ orthopedic surgery 1959's Hx of appendectomy Family History (Updated 09/30/24 @ 20:24 by Andrew Szymanski MD, PhD) Mother , at 82 years of age from long-standing complications associated with DM. Family history of diabetes mellitus Hypertension Father , at 86 years of age from acute NSTEMI. Hypertension Myocardial infarction Other No family history of adverse response to anesthesia Denies family history of Ovarian cancer Prostate cancer Breast cancer Colorectal cancer Social History (Updated 09/30/24 @ 20:24 by Andrew Szymanski MD, PhD) Smoking Status: Former smoker Tobacco Type: Cigarettes and Smokeless Tobacco (Dip or Chew) Age Started Using Tobacco: 15; Age Quit Using Tobacco: 25; packs per day: 0.5; Second Hand Exposure: No; Do You Dip or Chew Tobacco: No; Hx Alcohol Use: No Hx Substance Use: No Preferred Language: Sinhala Communication Ability: Effective Visual Impairment: Limited Hearing Ability: Normal Compliance Review Officer Required: No Beliefs That Will Affect Care: None marital status: Current Living Situation: Spouse current occupational status: employed 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 Physical Exam Constitutional: General: Comfortable, cooperative, coherent. Wide awake and alert. Not confused, lethargic, or obtunded. Patient speaks in complete, fluent, and articulate sentences without pause, interruption, cough, or wheeze. HEENT: Normocephalic, atraumatic. Pupils equally round and reactive to light. No nystagmus, gaze paresis, anisocoria, miosis, mydriasis, hyphema, scleral injection, conjunctivitis, or pterygium. No otorrhea. No pharyngeal erythema, edema, or discharge. Neck: Supple, no stridor, bruit, goiter, or hepato-jugular reflux. Jugular venous pressure is estimated to be 3 cm above the sternal angle of Tono, which in turn, is 5 cm above the level of the right atrium; with jugular venous pressure estimated to be 8 cm, then, there is no jugular venous distention on 09/30/2024. Lymphatics: No cervical (anterior/posterior), supraclavicular, infraclavicular, axillary, epitrochlear, or inguinal adenopathy. Chest: Symmetric rise and fall with respirations. Non-tender to palpation. Lungs: Clear to auscultation and percussion. No audible expiratory wheeze, egophony, pectoriloquy, increase in tactile fremitus, or flatness/dullness to percussion at the bases. Heart: RRR. S1 and S2 noted. No S3 or S4 summation gallop. No tripartite friction rub. Grade II/ early systolic murmur @ LLSB without radiation to the carotids, axilla, or back, and which remains invariant in regards to the respiratory cycle. Abdomen: Soft, non-tender, non-distended. No rebound, guarding, Arcos's sign, or organomegaly. Bowel sounds auscultated in all 4 quadrants. Extremities: No clubbing, cyanosis, or edema in upper extremities or lower extremities bilaterally. 2+ pedal pulses bilaterally. Skin: No decubitus ulcer, exanthem, or enanthem. Genito-urinary: No urethral discharge. No amin catheter. Neurology: Alert and oriented in regards to person, place, time, and situation. DTR+. 5/5 motor strength in all 4 extremities, both proximally and distally. No myoclonus, tremors, or tics. Psychiatry: No homicidal ideation. No suicidal ideation. No flat affect; smiles appropriately. Results & Data Results & Data Vital Signs (Past 12 Hours) Vital Signs Temp Pulse Pulse Resp BP BP Pulse Ox 09/30/24 16:42 65 09/30/24 15:49 37 C 68 20 131/76 98 09/30/24 15:21 09/30/24 15:00 68 18 117/59 L 86 L 09/30/24 14:00 68 17 129/72 94 09/30/24 13:00 68 18 140/91 09/30/24 13:00 36.7 C 69 18 140/91 94 09/30/24 12:45 37.7 C H 09/30/24 12:42 73 93 09/30/24 12:06 64 22 89 L 09/30/24 11:18 65 09/30/24 11:12 68 24 92 09/30/24 11:11 68 19 169/78 H 94 09/30/24 10:54 36.8 C 69 18 175/82 H 93 O2 Del Method O2 Flow Rate 09/30/24 16:42 09/30/24 15:49 Nasal Cannula 2 09/30/24 15:21 Nasal Cannula 4 09/30/24 15:00 Nasal Cannula 09/30/24 14:00 09/30/24 13:00 09/30/24 13:00 Nasal Cannula 2 09/30/24 12:45 09/30/24 12:42 Nasal Cannula 2 09/30/24 12:06 Room Air 09/30/24 11:18 09/30/24 11:12 Room Air 09/30/24 11:11 Room Air 09/30/24 10:54 Room Air Laboratory Results As above in the History of Present Illness. Diagnostic Findings As above in the History of Present Illness. Medications Administered As above in the History of Present Illness. Code Status & VTE Plan VTE Prophylaxis Plan VTE Prophylaxis will be ordered: Yes PG Care Time/CCT Total # of Minutes Spent Total Time Spent with Patient: Total time spent is greater than 50% in coordination of care (as documented) at patient's floor/unit and/or counseling patient: Coding Level of Care Code 26969 INT INP/OBS CARE 2/55MIN Diagnoses Acute hypoxic respiratory failure J96.01 Acute hypokalemia E87.6 Thrombocytopenia D69.6 Monocytosis D72.821 Demand ischemia I24.89
[2024-09-30 19:08] LABS: Potassium 2.5 mmol/L (3.5-5.1)
[2024-09-30] MEDS: POTASSIUM CHLORIDE / WTR 10 MEQ/100 ML PLCT IV SCH ×2 (19:20→19:38)
--- NOTE | 2024-09-30 19:20 | CT Scan Report ---
Clinical history: Rule out pulmonary embolism Technique: Axial computed tomography images were obtained of the chest after the administration of intravenous contrast according to the CT angiogram protocol Comparison is made to the prior CT dated 08/08/2020 Findings: There is no definite sign of pulmonary embolism. There are 2 unchanged noncalcified nodules in the superior segment of the right lower lobe, measuring 7 mm and 4 mm. There is mild left lung base atelectasis. There is no sign of pneumonia. There is no pleural effusion or pneumothorax. There is no sign of pulmonary fibrosis or other diffuse interstitial process. No endobronchial lesion is seen There is no mediastinal, hilar, or axillary adenopathy. The thoracic aorta appears unremarkable with no sign of aneurysm or dissection. There is no pericardial effusion The visualized upper abdomen appears unremarkable. No fracture is seen. No focal osseous lesion is evident Impression: 1. No definite sign of pulmonary embolism 2. Unchanged right lower lobe nodules, benign given the long-term stability ACT 112: Positive. There are findings on this exam that require communication between the performing entity and the patient following Patient Test Result Information Act ([place] ACT 112) guidelines. Electronically signed by Lucien Paez 09-30-2024 7:19 PM
[2024-09-30] MEDS: HEPARIN SOD 5,000 UNIT/0.5 ML VIAL SQ SCH (20:33)
[2024-09-30] MEDS ORDERED: CEROVITE ADV FORMULA TAB PO SCH (21:00)
[2024-09-30] MEDS: POTASSIUM CHLORIDE CRTAB 20 MEQ TABCR PO SCH (21:23)
[2024-10-01 01:27] LABS: Anion Gap 6.0 (3-11); Blood Urea Nitrogen 17.0 mg/dl (6-23); Calcium 8.3 mg/dl (8.6-10.3); Carbon Dioxide 28.0 mmol/L (21-32); Chloride 103.0 mmol/L (98-107); Creatinine Clr Calc Pharmacy 59.3 ml/min; Glucose 131.0 mg/dl (70-99(Fasting)); Potassium 3.7 mmol/L (3.5-5.1); Sodium 137.0 mmol/L (136-145)
[2024-10-01] MEDS: LEVOTHYROXINE SODIUM 150 MCG TABLET PO SCH (05:48)
[2024-10-01 07:36] VITALS: TEMP 97.5
[2024-10-01 07:54] LABS: Anion Gap 6.0 (3-11); Blood Urea Nitrogen 16.0 mg/dl (6-23); Calcium 8.3 mg/dl (8.6-10.3); Carbon Dioxide 30.0 mmol/L (21-32); Chloride 103.0 mmol/L (98-107); Creatinine Clr Calc Pharmacy 71.4 ml/min; Glucose 118.0 mg/dl (70-99(Fasting)); Potassium 3.6 mmol/L (3.5-5.1); Sodium 139.0 mmol/L (136-145)
[2024-10-01] MEDS ORDERED: POTASSIUM CHLORIDE CRTAB 20 MEQ TABCR PO SCH (09:00)
[2024-10-01 09:07] LABS: Hematocrit (blood only) 44.4 % (42.0-52.0); Hemoglobin 15.1 g/dl (14.0-18.0); Immature Granulocytes # (auto) 0.01 K/uL (0.01-0.20); Immature Granulocytes % (auto) 0.2 %; Mean Corpuscular Hemoglobin 31.1 pg (25.0-34.0); Mean Corpuscular Volume 91.4 fL (80.0-100.0); Platelet Count 95 K/uL (130-400); RDW Standard Deviation 43.3 fL (36.4-46.3); Red Blood Count 4.86 M/uL (4.70-6.10); White Blood Count 4.05 K/ul (4.8-10.8)
[2024-10-01 09:34] VITALS: RESP 18
[2024-10-01] MEDS: LOSARTAN POTASSIUM 50 MG TAB PO SCH (09:35)
[2024-10-01] MEDS: ASPIRIN 81 MG ECTAB PO SCH (09:37)
[2024-10-01 11:16] VITALS: BP 130/76; PULSE 64
[2024-10-01 12:59] VITALS: O2SAT 94
--- NOTE | 2024-10-01 20:32 | Discharge Summary ---
Discharge Summary Date of Service October 01, 2024 Principal Dx & Hospital Course #1 = Principal Diagnosis (1) Acute hypoxic respiratory failure: As above in the History of Present Illness. (2) Acute hypokalemia: As above in the History of Present Illness. (3) Thrombocytopenia: As above in the History of Present Illness. (4) Monocytosis: As above in the History of Present Illness. (5) Demand ischemia: As above in the History of Present Illness. Admission HPI Per Admitting Provider 74 years old male with PMH of FULL CODE @ home, morbid obesity with BMI 41.7 (height 180.3 cm; weight 135.6 kg), hypothyroidism with TSH 1.223 uIU/mL (09/30/2024, 11:09am) on synthroid 100ug PO daily, non-insulin dependent DM2 with HbA1c 6.3% (07/21/2024, 8:58am) on tirzepatide (Mounjaro) 5mg SQ q7 days for the past 2 months, former tobacco abuse with no subsequent diagnosis of COPD, not on home O2 or home steroids, bladder CA, s/p TURBT #1 (12/02/2016, 1:41pm, [facility] Urologist Dr. Familia Vance), s/p TURBT #2 (10/28/2018, 10:13am, [facility] Urologist Dr. 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 Familia Vance), BPH s/p TURP #1 (12/02/2016, 1:41pm, [facility] Urologist Dr. Familia Vance), s/p TURP #2 (10/28/2018, 10:13am, [facility] Urologist Dr. Familia Vance), now on doxazosin 4mg PO daily, peripheral monocytosis with historical M% range, 13.2% (11/12/2023, time ?) to 15.4% (11/13/2023, 3:55am) to 16.6% (11/13/2024, 3:42am) to 14.0% (11/15/2023, 6:34am), coinciding with acute inferior wall STEMI and elevated troponins: cf., troponin-I #1 5,378.3 pg/mL (11/12/2023, 11:20am). cf., troponin-I #2 150.5 pg/mL (11/12/2023, time ?). cf., troponin-I #3 17,682.8 pg/mL (11/13/2023, 12:25am). cf., troponin-I #4 13,769.7 pg/mL (11/13/2023, 3:55am). HTN on amlodipine 10mg PO daily and HCTZ 25mg PO daily, and CAD, s/p inferior wall STEMI, s/p REGINE to distal RCA (11/13/2023, 6:46pm, [facility] CARDS Dr. Familia Abraham), severe, non-culprit LAD, s/p staged REGINE (11/13/2023, 6:46pm, [facility] CARDS Dr. Familia Abraham), residual distal LAD wire dissection, moderate LCx disease, procedures complicated by right forearm/left forearm hematomas, and right groin hematoma (11/13/2023, 6:46pm, [facility] CARDS Dr. Familia Abraham), now on ASA 81mg PO daily and atorvastatin 20mg PO qam, who reports: "For the past 2 weeks, I have been feeling run-down, worn-out, and weak, no energy. Also, I've been feeling nauseated and vomiting, no bile and no blood, no diarrhea or belly pain. Sometimes, I felt chilly, but no fevers or sweating. Then on Thursday (09/28/2024), I felt muscle aches all over, and by the end of the day, the muscle aches were gone. 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 My wanted me to get myself checked out, because this is how I felt when I had my heart attack on 11/12/2023. No chest pain at all." Patient denies antecedent/coincident shortness of breath, cough, wheeze, sore throat, hemoptysis, chest pains, palpitations, pleurisy, diarrhea, abdominal pain, pelvic pain, hematemesis, hematochezia, melena, hematuria, dysuria, freq uency, urgency, headaches, dizziness, lightheadedness, visual changes, hearing changes, weakness, falls, syncope, trauma, travel history, sick contacts, or food/drug ingestions novel or new. All other review of systems are reported as negative by the patient on observation date 09/30/2024. In [facility] ER bed #A10, patient was afebrile @36.8 degrees Celsius, HR 69, RR 18, O2 sat 93% on room air, and BP 175/82 (09/30/2024, 10:54am). cf., repeat O2 sat 89% on room air (09/30/2024, 12:06pm). Exam was noted for a clear and non-tender chest. Labs in [facility] ER bed #A10 included: Na 136, K 3.1, BUN 13, creatinine 1.16, glucose 169, CO2 27, Ca 8.8, Mg 1.8, AST 21, ALT 23, ALK PHOS 47, TBili 0.8 (09/30/2024, 11:09am). K 2.5 (09/30/2024, 6:07pm). WBC 5.70, N82 L8 M10, Hb 15.7, MCV 89.6, MCHC 35.1, platelet 114 (09/30/2024, 3:25pm). U/A: clear yellow, LE-, nitrite trace, ketones trace, blood trace, RBC 0-2, WBC 0-5, epithelial cells 0-2, bacteria 0 (09/30/2024, 3:25pm). Lactate #1 1.1 mmol/L (09/30/2024, 1:39pm). Lactate #2 (09/30/2024, 5:39pm). Procalcitonin #1 0.19 ng/mL (09/30/2024, 1:39pm). MRSA nares PCR- (09/30/2024, 1:49pm). BIOFIRE respiratory PCR panel - (09/30/2024, 1:49pm). Anaplasma smear negative for intracytoplasmic neutrophilic inclusions (09/30/2024, 11:47am). Anaplasma DNA (09/30/2024, 11:47am). Babesia smear negative for intra-RBC inclusions (09/30/2024, 11:47am). Babesia DN (09/30/2024, 11:47am). Lyme disease screen negative (09/30/2024, 11:47am). Blood culture (09/30/2024, 1:20pm): Lipase 38 U/L (09/30/2024, 11:09am). TSH 1.223 uIU/mL (09/30/2024, 11:09am). CK 124 U/L (09/30/2024, 1:20pm). Troponin-I #1 34.3 pg/mL (09/30/2024, 11:09am). Troponin-I #2 38.9 pg/mL (09/30/2024, 1:20pm). Troponin-I #3 35.4 pg/mL (09/30/2024, 2:39pm). Troponin-I #4 23.7 pg/mL (09/30/2024, 6:07pm). Additional testing in [facility] ER bed #A10 included: Portable CXR (09/30/2024, 11:39am): 1. Cardiomegaly with LLL atelectasis. No infiltrate, effusion, pulmonary vascular congestion, or pneumothorax. (by my review). CTA chest (09/30/2024, 5:49pm): 1. No definite sign of pulmonary embolism 2. No pneumonia. 3. No effusion. 4. Unchanged right lower lobe nodules, benign given the long-term stability. 5. Mild LLL atelectasis. EKG (09/30/2024, 11:00am): NSR @ 68, TX 176, QTC 399, q in III, no acute ST d epressions/elevations (by my review). Patient was subsequently placed in OBSERVATION on the hospitalist service @ [facility] on 09/30/2024 with the following diagnoses: 1. Acute hypoxic respiratory failure with repeat O2 saturation 89% on room air (09/30/2024, 12:06pm), of unclear etiology, but probably due to hypoventilation, due to presumed obesity hypoventilation syndrome with morbid obesity with BMI 41.7 (height 180.3 cm; weight 135.6 kg), leading to acute/mild LLL atelectasis (as noted on 09/30/2024, 11:39am portable CXR; as noted on 09/30/2024, 5:49pm CTA chest). 2. Acute hypokalemia with admission K 3.1 mmol/L (09/30/2024, 11:09am), most probably due to home-scheduled HCTZ 25mg PO daily with HCTZ-mediated nicole- uresis. 3. Acute thrombocytopenia with admission platelet count 114 (09/30/2024, 3:25pm), most probably due to home-scheduled HCTZ 25mg PO daily and tirzepatide 5mg SQ q7 days (started 2 months ago). 4. Acute peripheral monocytosis with admission M% 10% (09/30/2024, 3:25pm), most probably due to acute (echo)viral syndrome, R/O human monocytic Erhlichiosis, R/O human granulocytic Anaplasmosis, R/O babesiosis. 5. Acute type II NSTEMI with admission troponin-I #1 34.3 pg/mL (09/30/2024, 11:09am), most probably due to demand ischemia, which in turn, is due to acute hypoxic respiratory failure. The following medical issues were addressed while the patient remained in [facility] from 09/30/2024 through 10/01/2024: 1. Acute hypoxic respiratory failure with repeat O2 saturation 89% on room air (09/30/2024, 12:06pm), of unclear etiology, but probably due to hypoventilation, due to presumed obesity hypoventilation syndrome with morbid obesity with BMI 41.7 (height 180.3 cm; weight 135.6 kg), leading to acute/mild LLL atelectasis (as noted on 09/30/2024, 11:39am portable CXR; as noted on 09/30/2024, 5:49pm CTA chest). To address #1, patient underwent incentive spirometry q4h while awake, in order to open up the atelectatic airways and thereby improve oxygenation. Subsequently, acute hypoxic respiratory failure RESOLVED with discharge O2 saturation 94% on room air (10/01/2024, 2:13pm). Of note, patient is not coughing or wheezing or reporting any SOB/MARX at all, to warrant pharmacologic intervention with steroids or nebulizer treatments of any kind on observation date 09/30/2024 or discharge date 10/01/2024. 2. Acute hypokalemia with admission K 3.1 mmol/L (09/30/2024, 11:09am), most probably due to home-scheduled HCTZ 25mg PO daily with HCTZ-mediated nicole- uresis. To address #2, patient is being held OFF his home-scheduled HCTZ 25mg PO daily while in [facility]. Patient already received supplementation with KCl 40meq PO bid x 2 doses (09/30/2024, 2:09pm, 3:12pm), but acute hypokalemia PERSISTED with post-supplement K 2.5 mmol/L (09/30/2024, 6:07pm). Patient subsequently received KCl 40meq PO bid x 2 doses (09/30/2024, 9:23pm; 10/01/2024, 9:36am), and acute hypokalemia RESOLVED with post-supplement K 3.7 mmol/L (10/01/2024, 12:31am) and discharge K 3.6 mmol/L (10/01/2024, 7:19am). 3. Acute thrombocytopenia with admission platelet count 114 (09/30/2024, 3:25pm), most probably due to home-scheduled HCTZ 25mg PO daily and tirzepatide 5mg SQ q7 days (started 2 months ago). To address #3, patient was held OFF his home-scheduled HCTZ 25mg PO daily while in [facility]. Patient was also held OFF his home-scheduled tirzepatide 5mg SQ q7 days while in [facility]. Acute thrombocytopenia PERSISTS with repeat platelet count 95 (10/01/2024, 7:19am). Patient reported no mucosal bleeding and had no ecchymoses, petechiae, or hematomas on observation date 09/30/2024 or on discharge date 10/01/2024. Patient subsequently was discharged home on 10/01/2024 and was advised to continue holding OFF his home-scheduled HCTZ 25mg PO daily for the next 7 days and to discontinue PERMANENTLY his home-scheduled tirzepatide 5mg SQ q7 days. Patient was also advised to undergo repeat platelet count testing with his PCP Dr. Brittni De Luna within 5-7 days of hospital discharge. Patient reports that he will comply with this recommendation. 4. Acute peripheral monocytosis with admission M% 10% (09/30/2024, 3:25pm), most probably due to acute (echo)viral syndrome, R/O human monocytic Erhlichiosis, R/O human granulocytic Anaplasmosis, R/O babesiosis. To address #4, patient received ceftriaxone 2g IV x 1 dose (09/30/2024, 1:32pm) and doxycycline 100mg IV x 1 dose (09/30/2024, 1:33pm) in [facility] ER bed #A10. 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 Moreover, preliminary results of Giemsa-stained blood smears for human granulocytic Anaplasmosis and babesiosis are negative for intracellular inclusions, which are the sine aleah non of infection with this gram negative bacillus and this parasite, respectively. In addition, this patient's procalcit onin level is negative/normal at 0.19 ng/mL (09/30/2024, 1:39pm); in contrast, infection with either Anaplasma phagocytophilus or Ehrlichia chaffeensis, the causative agents for human granulocytic Anaplasmosis and human monocytic Ehrlichiosis, respectively, correlate with procalcitonin levels typically in the single-double digit range. Hence, I opted not to continue empirically with doxycycline. I also opted not to continue empirically with ceftriaxone. I also opted not to start this patient empirically on atovaquone and azithromycin (e.g., empiric treatment for babesiosis). Of final note, I informed the patient that I will call him at his home ( ) or his cell phone ( ) in the next 3-4 days to inform him of the final results of PCR/DNA testing for Anaplasma phagocytophilus, Ehrlichia chaffeensis, and Babesia microti. 5. Acute type II NSTEMI with admission troponin-I #1 34.3 pg/mL (09/30/2024, 11:09am), most probably due to demand ischemia, which in turn, is due to acute hypoxic respiratory failure. To address #5, patient was observed on telemetry overnight for possible arrhythmias; no arrhythmias were subsequently reported. In addition, the nominal troponin-I elevations noted above had already peaked with troponin-I #2 38.9 pg/mL (09/30/2024, 1:20pm), and had already trended down close to normal: cf., Troponin-I #3 35.4 pg/mL (09/30/2024, 2:39pm). cf., Troponin-I #4 23.7 pg/mL (09/30/2024, 6:07pm). The amplitude/magnitude of these nominally elevated troponin-I levels pales in comparison to patient's acute inferior wall STEMI and elevated troponins: cf., troponin-I #1 5,378.3 pg/mL (11/12/2023, 11:20am). cf., troponin-I #2 150.5 pg/mL (11/12/2023, time ?). cf., troponin-I #3 17,682.8 pg/mL (11/13/2023, 12:25am). cf., troponin-I #4 13,769.7 pg/mL (11/13/2023, 3:55am). Hence, I opted to observe this laboratory anomaly of nominally elevated troponins with admission troponin-I #1 34.3 pg/mL (09/30/2024, 11:09am) to troponin-I #4 23.7 pg/mL (09/30/2024, 6:07pm) without further evaluation or intervention while patient remained in [facility]. Discharge Exam Constitutional General: Comfortable, cooperative, coherent. Wide awake and alert. Not confused, lethargic, or obtunded. Patient speaks in complete, fluent, and articulate sentences without pause, interruption, cough, or wheeze. HEENT: Normocephalic, atraumatic. Pupils equally round and reactive to light. No nystagmus, gaze paresis, anisocoria, miosis, mydriasis, hyphema, scleral injection, conjunctivitis, or pterygium. No otorrhea. No pharyngeal erythema, edema, or discharge. Neck: Supple, no stridor, bruit, goiter, or hepato-jugular reflux. Jugular venous pressure is estimated to be 3 cm above the sternal angle of Tono, which in turn, is 5 cm above the level of the right atrium; with jugular venous pressure estimated to be 8 cm, then, there is no jugular venous distention on 10/01/2024. Lymphatics: No cervical (anterior/posterior), supraclavicular, infraclavicular, axillary, epitrochlear, or inguinal adenopathy. Chest: Symmetric rise and fall with respirations. Non-tender to palpation. Lungs: Clear to auscultation and percussion. No audible expiratory wheeze, egophony, pectoriloquy, increase in tactile fremitus, or flatness/dullness to percussion at the bases. Heart: RRR. S1 and S2 noted. No S3 or S4 summation gallop. No tripartite friction rub. Grade II/ early systolic murmur @ LLSB without radiation to the carotids, axilla, or back, and which remains invariant in regards to the respiratory cycle. Abdomen: Soft, non-tender, non-distended. No rebound, guarding, Arcos's sign, or organomegaly. Bowel sounds auscultated in all 4 quadrants. Extremities: No clubbing, cyanosis, or edema in upper extremities or lower extremities bilaterally. 2+ pedal pulses bilaterally. Skin: No decubitus ulcer, exanthem, or enanthem. Genito-urinary: No urethral discharge. No amin catheter. Neurology: Alert and oriented in regards to person, place, time, and situation. DTR+. 5/5 motor strength in all 4 extremities, both proximally and distally. No myoclonus, tremors, or tics. Psychiatry: No homicidal ideation. No suicidal ideation. No flat affect; smiles appropriately. Discharge Plan Discharge Items Patient Disposition: Home - Self-Care Reason For Visit: MYALGIA Discharge Diagnosis: 1. Acute hypoxic respiratory failure with repeat O2 sat 89% on room air (09/30/2024, 12:06pm), of unclear etiology, but probably due to hypoventilation, due to presumed obesity hypoventilation syndrome with morbid obesity with BMI 41.7 (height 180.3 cm; weight 135.6 kg), leading to acute/mild LLL atelectasis (as noted on 09/30/2024, 11:39am portable CXR; as noted on 09/30/2024, 5:49pm CTA chest). 2. Acute hypokalemia with admission K 3.1 mmol/L (09/30/2024, 11:09am), most probably due to home-scheduled HCTZ 25mg PO daily with HCTZ-mediated nicole- uresis. 3. Acute thrombocytopenia with admission platelet count 114 (09/30/2024, 3:25pm), most probably due to home-scheduled HCTZ 25mg PO daily and tirzepatide 5mg SQ q7 days (started 2 months ago). 4. Acute peripheral monocytosis with admission M% 10% (09/30/2024, 3:25pm), most probably due to acute (echo)viral syndrome, R/O human monocytic Erhlichiosis, R/O human granulocytic Anaplasmosis, R/O babesiosis. 5. Acute type II NSTEMI with admission troponin-I #1 34.3 pg/mL (09/30/2024, 11:09am), most probably due to demand ischemia, which in turn, is due to acute hypoxic respiratory failure. 6. Chronic unchanged (since 08/08/2020 CT chest without contrast) non-calcified RLL nodules, measuring 7mm and 4mm (as noted on 09/30/2024, 5:49pm CTA chest). Condition on Discharge: Good Activity: Resume your previous activity Lifting: Gradually increase as tolerated Bathing: No limitations Sexual Activity: When tolerated Exercise/Sports: Gradually increase as tolerated Driving/Machine Use: No limitations Weightbearing: Full weightbearing Non-emergency contact: Primary Care Provider Call non-emergency contact if: you have any medication questions Follow-up/Referrals: Brittni De Luna MD [Primary Care Provider] - 10/07/24 11:30 am Diet: Heart Healthy Addtl Attending Provider Instructions: 1. Check final results for blood culture #1 (09/30/2024, 1:20pm), blood culture #2 (09/30/2024, 2:00pm), outpatient Anaplasmosis, Ehrlichiosis, Babesiosis PCR tests (09/30/2024, 11:47am). Pending Studies at Discharge: Yes Studies:: 1. Check final results for blood culture #1 (09/30/2024, 1:20pm), blood culture #2 (09/30/2024, 2:00pm), outpatient Anaplasmosis, Ehrlichiosis, Babesiosis PCR tests (09/30/2024, 11:47am). Stand-Alone Forms: [facility] [employer], Smoking Cessation Medications and DC Order Prescriptions: Continued potassium chloride 20 mEq tablet extended release 20 meq PO QAM Qty: 90 3RF losartan 100 mg tablet 100 mg PO QAM Qty: 90 3RF levothyroxine 150 mcg tablet 150 mcg PO DAILY Qty: 90 1RF cholecalciferol (vitamin D3) 1,250 mcg (50,000 unit) capsule 50,000 unit PO .COMPLEX Qty: 10 0RF Rx Instructions: 50,000 units orally WEEKLY; amlodipine 10 mg tablet 10 mg PO DAILY Qty: 90 1RF sildenafil 100 mg tablet 100 mg PO DAILY PRN (Reason: sexual activity) Qty: 10 3RF Rx Instructions: administer 30 minutes to 4 hours before activity tadalafil 20 mg tablet 20 mg PO DAILY Qty: 30 11RF doxazosin 4 mg tablet 4 mg PO DAILY Qty: 90 3RF Systane Balance 0.6 % drops 1 drp ophthalmic (eye) DAILY PRN (Reason: Dry Eyes) atorvastatin 20 mg tablet 20 mg PO QAM 90 Days Qty: 90 3RF aspirin [Miguel Low Dose Aspirin] 81 mg Tablet,Delayed Release (Dr/Ec) 81 mg PO QAM Metamucil 3.4 gram/5.4 gram Powder 1 tsp PO QAM cranberry fruit 1,000 mg Capsule 1,000 mg PO UD Rx Instructions: every other day PreserVision AREDS 4,296 mcg-226 mg-90 mg Capsule 1 cap PO BID Held hydrochlorothiazide 25 mg tablet 25 mg PO QAM Qty: 90 3RF Hold Instructions: Resume on 10/07/24. Discontinued tirzepatide 5 mg/0.5 mL pen injector 5 mg subcut Q7D Qty: 6 0RF Discharge Orders: Discharge Order (Routine); Ordered 10/01/24 Ordered By: Andrew Szymanski Admission Data Admit Date/Time: 09/30/24 13:18 Attending Provider: Andrew Szymanski Admit Provider: Andrew Szymanski Primary Care Provider: Brittni De Luna Other Interventions: Discharge Summary Assessment (RN) Last Done: 10/01/24 14:13 Hospital Stay Data Diagnostic Imagining Performed 09/30/24 17:49 CT angio chest PE protocol Stat Pending Results Patient Have Any Pending Studies at Discharge: Yes Discharge Instructions Given to Patient (Per Discharging Provider) 1. Check final results for blood culture #1 (09/30/2024, 1:20pm), blood culture #2 (09/30/2024, 2:00pm), outpatient Anaplasmosis, Ehrlichiosis, Babesiosis PCR tests (09/30/2024, 11:47am). Total Time Total Time Spent Total Time Spent (In Minutes): 35 minutes. Of this time period, 19 minutes were spent in coordinating patient's discharge. Coding Level of Care Code 28751 INP/OBS DISCH >30 MIN Diagnoses Acute hypoxic respiratory failure J96.01 Acute hypokalemia E87.6 Thrombocytopenia D69.6 Monocytosis D72.821 Demand ischemia I24.89
--- NOTE | 2024-10-02 14:10 | Electrocardiogram Report ---
Test Reason : Blood Pressure : */* mmHG Vent. Rate : 68 BPM Atrial Rate : 68 BPM P-R Int : 176 ms QRS Dur : 90 ms QT Int : 376 ms P-R-T Axes : * -20 47 degrees QTcB Int : 399 ms Sinus rhythm with Premature atrial complexes Inferior infarct (cited on or before 12-Nov-2023) Abnormal ECG When compared with ECG of 14-Nov-2023 05:19, Premature ventricular complexes are no longer Present T wave inversion no longer evident in Inferior leads Confirmed by Sudhakar Hayden ([id number]) on 10/02/2024 2:10:03 PM Referred By: Confirmed By: Sudhakar Hayden
[2024-10-05 04:02] LABS: A calco-baum cmplx NotReported Not Detected (NotDetected); Bact fragilis Not Reported Not Detected (NotDetected); Blood Culture Id Panel PCR Panel Negative (NotDetected); C auris Not Reported Not Detected (NotDetected); Calbicans Not Reported Not Detected (NotDetected); Candida glabrata Not Reported Not Detected (NotDetected); Candida krusei Not Reported Not Detected (NotDetected); Cneoformans/gatti Not Reported Not Detected (NotDetected); Cparapsilosis Not Reported Not Detected (NotDetected); Ctropicalis Not Reported Not Detected (NotDetected); E cloacae compx Not Reported Not Detected (NotDetected); Efaecalis Not Reported Not Detected (NotDetected); Efaecium Not Reported Not Detected (NotDetected); Enterobacterales Not Reported Not Detected (NotDetected); Escherichia coli Not Reported Not Detected (NotDetected); H influenzae Not Reported Not Detected (NotDetected); K aerogenes Not Reported Not Detected (NotDetected); Koxytoca Not Reported Not Detected (NotDetected); Kpneumoniae grp Not Reported Not Detected (NotDetected); Lmonocyt Not Reported Not Detected (NotDetected); N meningitidis Not Reported Not Detected (NotDetected); P aeruginosa Not Reported Not Detected (NotDetected); Proteus spp Not Reported Not Detected (NotDetected); Salmonella spp Not Reported Not Detected (NotDetected); Staph lugdunensis Not Reported Not Detected (NotDetected); Staph spp. Not Reported Not Detected (NotDetected); Staphaureus Not Reported Not Detected (NotDetected); Staphepi Not Reported Not Detected (NotDetected); Stenmaltophilia Not Reported Not Detected (NotDetected); Strep agal(GrpB) Not Reported Not Detected (NotDetected); Strep pneum Not Reported Not Detected (NotDetected); Strep pyog (GrpA) Not Reported Not Detected (NotDetected); Strep spp Not Reported Not Detected (NotDetected)
== END 2024-10-01 14:33 | disposition home or self-care (01) ==
LOC: ED 10:51 → 2N 10:51